=== PATIENT | male | born 1950 | race Caucasian/White ===

== ENCOUNTER 2023-08-09 15:21 | Inpatient (IN) ==
[2023-08-09] MEDS: SODIUM CHLORIDE 0.9% 1,000 ML IV ONE ×2 (15:59→18:13)
--- NOTE | 2023-08-09 16:06 | Emergency Department Note ---
Impression & Plan Generalized weakness, Elevated lactic acid level, Acute dehydration, Acute hypokalemia ED Provider Note HISTORY OF PRESENT ILLNESS: Patient is a 73-year-old male presenting with fatigue. Patient reports that for the last 4 days he has been feeling very rundown and tired. He feels lightheaded when he stands up, like he is going to pass out. reports that the patient has been breaking out into diaphoretic episodes throughout the weekend. No reported measured fevers at home. Patient denies any chest pain. He reports he has been slightly short of breath over the last 24 hours. Does not wear any supplemental oxygen at baseline. reports he has not been eating much. No reported vomiting or diarrhea. Patient denies any abdominal pain. Reports his last bowel movement was few days ago. He denies any dysuria or hematuria. reports the patient has been sleeping constantly secondary to his fatigue. No reported rashes. No recent sick contact exposures. ROS: as above PHYSICAL EXAM: Constitutional: Patient appears in no acute distress. HENT: Head: Normocephalic and atraumatic. Eyes: EOMI, PERRL Mouth/Throat: Mucous membranes moist. Neck: Trachea midline. Neck supple. Cardiovascular: RRR, No murmurs, rubs or gallops. Intact distal pulses. Pulmonary/Chest: No respiratory distress. Breath sounds clear and equal bilaterally. No wheezes or rales. Abdominal: Abdomen soft, no tenderness, rebound or guarding. Musculoskeletal: No edema, tenderness or deformity noted. Skin: Warm and dry. No rash, erythema, pallor or cyanosis Psychiatric: Appropriate mood and affect for situation. Neurological: Alert and keenly responsive. CN II-XII grossly intact, moving all extremities equally and fully. MDM: - Vitals signs stable. On arrival to the ER in triage, the patient vomited. - History obtained via patient. History as above. - Chronic conditions affecting care: HTN - Differential diagnoses include, but are not limited to: UTI; pneumonia; viral syndrome; small bowel obstruction; cholecystitis; dehydration; electrolyte abnormality - Order placed for continuous cardiac monitoring. At this time, monitor showed rate of 83 bpm with normal sinus rhythm, per my interpretation. - External medical records reviewed. - EKG interpreted by myself showed normal sinus rhythm. Rate 85 bpm. QT 364. No acute ischemic changes. Noted to have occasional PVC. Also has a right bundle branch block - Laboratory workup interpreted by myself showed normal WBC; slight hypokalemia (K 3.3); elevated lactate (2.6); normal troponin; normal lipase; normal procalcitonin - CXR negative for pneumonia, per my interpretation - CT abdomen/pelvis with IV contrast negative for acute pathology - Patient initially given 1L NS. Repeat lactate only down to 2.4. Second 1L NS ordered. - Viral respiratory panel negative - Blood cultures obtained - Discussion was had with corrections caseworker about patient's case and need for admission - Hospitalist consulted for admission - Patient admitted to [facility]ist service for further evaluation and management. ASSESSMENT AND PLAN: Diagnosis: generalized weakness; elevated lactic acid level; acute dehydration; acute hypokalemia Plan: admit Past Med/Surg History Problem List (Updated 08/09/23 @ 20:11 by Huma Montano MD) Acute hypokalemia (Acute) Acute dehydration (Acute) Elevated lactic acid level (Acute) Generalized weakness (Acute) Social History Smoking Status: Former smoker Tobacco Type: Cigarettes Feels Safe at Home: Yes Allergies Allergies Allergy/AdvReac Type Severity Reaction Status Date / Time No Known Allergies Allergy Unverified 08/09/23 19:21 Home Meds Home Medications Medication Instructions Recorded Confirmed albuterol sulfate 90 mcg/actuation 2 puff inhalation Q6H PRN Wheezing 08/09/23 08/09/23 aerosol inhaler amlodipine 5 mg tablet 5 mg PO QAM 08/09/23 08/09/23 atorvastatin 80 mg tablet 80 mg PO QAM 08/09/23 08/09/23 fluticasone fur. 100 mcg-umeclid 1 inh inhalation QA 08/09/23 08/09/23 62.5 mcg-vilant 25 mcg inhalat.powder (Trelegy Ellipta) fluticasone propionate 50 1 spray intranasal DAILY PRN 08/09/23 08/09/23 mcg/actuation nasal Allergy Symptoms spray,suspension furosemide 20 mg tablet 20 mg PO QAM 08/09/23 08/09/23 hydrochlorothiazide 12.5 mg capsule 12.5 mg PO QAM 08/09/23 08/09/23 lisinopril 40 mg tablet 40 mg PO QAM 08/09/23 08/09/23 metformin 500 mg tablet,extended 300 mg PO QAM 08/09/23 08/09/23 release 24 hr multivitamin 1 tab PO QAM 08/09/23 08/09/23 ropinirole 2 mg tablet 2 mg PO QAM 08/09/23 08/09/23 tamsulosin 0.4 mg capsule 0.4 mg PO QAM 08/09/23 08/09/23 Results & Data (ED) Vital Signs Vital Signs - 24 hr 08/09/23 15:40 08/09/23 15:53 08/09/23 17:39 Temperature 36.8 C Temperature Source Temporal Artery Scan Pulse Rate - Lying 65 Pulse Rate - Sitting 79 Pulse Rate - Standing 83 Pulse Rate 66 87 Pulse Rate [Apical] Pulse Rhythm Pulse Rhythm [Apical] Pulse Strength [Apical] Respiratory Rate 16 Respiratory Effort / Characteristics Non-Labored Spontaneous Respiratory Depth Normal Respiratory Pattern Blood Pressure - Lying 152/71 H Blood Pressure - Sitting 141/79 H Blood Pressure- Standing 139/82 Blood Pressure 129/73 Blood Pressure [Left Arm] Blood Pressure Mean 91 Blood Pressure Mean [Left Arm] Blood Pressure Position [Left Arm] Pulse Oximetry 93 Oxygen Delivery Method Room Air Oxygen Flow Rate Sepsis Recent Fever Within 48 Hours No Sepsis New/Unexplained Change in Mental Status No Sepsis Action Taken by Nursing No Action Required 08/09/23 17:44 08/09/23 17:44 Temperature Temperature Source Pulse Rate - Lying Pulse Rate - Sitting Pulse Rate - Standing Pulse Rate 64 Pulse Rate [Apical] 83 Pulse Rhythm Regular Pulse Rhythm [Apical] Regular Pulse Strength [Apical] Normal Respiratory Rate 18 18 Respiratory Effort / Characteristics Non-Labored Spontaneous Respiratory Depth Normal Respiratory Pattern Regular Blood Pressure - Lying Blood Pressure - Sitting Blood Pressure- Standing Blood Pressure Blood Pressure [Left Arm] 138/82 Blood Pressure Mean Blood Pressure Mean [Left Arm] 100 Blood Pressure Position [Left Arm] Sitting Pulse Oximetry 96 96 Oxygen Delivery Method Nasal Cannula Nasal Cannula Oxygen Flow Rate 2 2 Sepsis Recent Fever Within 48 Hours Sepsis New/Unexplained Change in Mental Status Sepsis Action Taken by Nursing Laboratory Data 08/09/23 15:52 08/09/23 15:52 Lab Results 08/09/23 08/09/23 08/09/23 Range/Units 15:52 15:59 17:39 WBC 5.66 (4.8-10.8) K/ul RBC 4.89 (4.70-6.10) M/uL Hgb 15.1 (14.0-18.0) g/dl Hct 43.8 (42.0-52.0) % MCV 89.6 (80.0-100.0) fL MCH 30.9 (25.0-34.0) pg MCHC 34.5 (32.0-36.0) g/dL RDW Std Deviation 43.7 (36.4-46.3) fL RDW Coeff of Cate 13.3 (11.5-14.5) % Plt Count 203 (130-400) K/uL MPV 9.5 (9.4-12.4) fL Immature Gran % (Auto) 0.4 % Neut % (Auto) 62.8 % Lymph % (Auto) 20.7 % [place] % (Auto) 14.5 % Eos % (Auto) 0.9 % Baso % (Auto) 0.7 % Neut # (Auto) 3.56 (1.40-6.50) K/uL Lymph # (Auto) 1.17 L (1.20-3.40) K/uL [place] # (Auto) 0.82 H (0.11-0.59) K/uL Eos # (Auto) 0.05 (0.00-0.50) K/uL Baso # (Auto) 0.04 (0.00-0.20) K/uL Immature Gran # (Auto) 0.02 (0.01-0.20) K/uL PT 10.9 (9.0-12.0) Seconds INR 1.0 (0.9-1.1) Sodium 141 (136-145) mmol/L Potassium 3.3 L (3.5-5.1) mmol/L Chloride 101 (98-107) mmol/L Carbon Dioxide 30 (21-32) mmol/L Anion Gap 10 (3-11) BUN 22 (6-23) mg/dl Creatinine 1.08 (0.6-1.4) mg/dl Est Cr Clr Drug Dosing 70.2 ml/min Est GFR ( Amer) 77.4 ml/min Est GFR (Non-Af Amer) 66.8 ml/min BUN/Creatinine Ratio 20.4 H (10-20) Glucose 127 H (70-99(Fasting)) mg/dl Lactate 2.9 H* 2.4 H* (0.4-2.0) mmol/L Calcium 10.0 (8.6-10.3) mg/dl Magnesium 1.8 (1.7-2.4) mg/dl Total Bilirubin 0.7 (0.2-1.0) mg/dl AST 36 (13-39) U/L ALT 37 (7-52) U/L Alkaline Phosphatase 71 (34-104) U/L Troponin I High Sens 8.2 (0-20) pg/ml Total Protein 7.3 (6.0-8.3) gm/dl Albumin 4.4 (3.4-5.0) gm/dl Globulin 2.9 (2.5-4.0) gm/dl Albumin/Globulin Ratio 1.5 (0.9-2) Lipase 22 (11-82) U/L Procalcitonin 0.04 (0-0.5) ng/ml Adenovirus (PCR) Not Detected (NotDetected) B. pertussis DNA (PCR) Not Detected (NotDetected) B.parapertussis DNA PCR Not Detected (NotDetected) C. pneumoniae DNA (PCR) Not Detected (NotDetected) Coronavirus OC43 (PCR) Not Detected (NotDetected) Coronavirus HKU1 (PCR) Not Detected (NotDetected) Coronavirus 229E (PCR) Not Detected (NotDetected) SARS-CoV-2 (PCR) Not Detected (NotDetected) Coronavirus NL63 (PCR) Not Detected (NotDetected) Human Metapneumovir PCR Not Detected (NotDetected) Influenza Type A (PCR) Not Detected (NotDetected) Influenza Type B (PCR) Not Detected (NotDetected) M. pneumoniae (PCR) Not Detected (NotDetected) Parainfluenza 1 (PCR) Not Detected (NotDetected) Parainfluenza 2 (PCR) Not Detected (NotDetected) Parainfluenza 3 (PCR) Not Detected (NotDetected) Parainfluenza 4 (PCR) Not Detected (NotDetected) RSV (PCR) Not Detected (NotDetected) Entero/Rhino (PCR) Not Detected (NotDetected) Administered Medications Discontinued Medications Sodium Chloride (Nss) 1,000 mls @ 999 mls/hr IV .Q1H1M ONE Stop: 08/09/23 16:46 Last Infusion: 08/09/23 19:51 Dose: Infused Documented By: Admin: 08/09/23 15:59 Dose: 999 mls/hr Documented By: COLE Sodium Chloride (Nss) 1,000 mls @ 999 mls/hr IV .Q1H1M ONE Stop: 08/09/23 19:09 Last Infusion: 08/09/23 19:51 Dose: Infused Documented By: Admin: 08/09/23 18:13 Dose: 999 mls/hr Documented By: JESSICA Ioversol (Optiray 320 100ml) 89 ml IV ONCE ONE Stop: 08/09/23 18:39 Last Admin: 08/09/23 18:38 Dose: 89 ml Documented By: DERRELL Ondansetron HCl (Ondansetron Inj 2 Mg/Ml 2 Ml Vial) 4 mg IV NOW STA Stop: 08/09/23 15:47 Last Admin: 08/09/23 16:58 Dose: Not Given Documented By: COLE Imaging Data Radiologist's Impression: Chest X-Ray 08/09/23 16:16 XR chest 1V portable HISTORY: shortness of breath COMPARISON: Chest CT 10/28/2015. FINDINGS: No pneumothorax. No pleural effusions. No focal lung consolidations to suggest a pneumonia. No evidence for pulmonary edema. The cardiac silhouette is top normal in size. No acute fractures. IMPRESSION: No acute process. ACT 112: Negative or not required by law. Electronically signed by: Teo King M.D. 08/09/2023 5:08 PM Abdomen/Pelvis CT 08/09/23 18:09 Exam(s): CT ABDOMEN + PELVIS With Contrast IV Amt: 89ml optiray 320. EXAM: CT Abdomen and Pelvis With Intravenous Contrast CLINICAL HISTORY: Reason for exam: vomiting; elevated lactate. TECHNIQUE: Axial computed tomography images of the abdomen and pelvis with intravenous contrast. CTDI is 25.6 mGy and DLP is 1176.83 mGy-cm. Automated exposure control was utilized for the study. A dose lowering technique was utilized adhering to the principles of ALARA. CONTRAST: Patient received 89ml optiray 320. of IV contrast COMPARISON: No relevant prior studies available. FINDINGS: Lung bases: Bibasilar subsegmental atelectasis. Pleural space: Trace volume of pleural fluid bilaterally. Heart: Small pericardial effusion. ABDOMEN: Liver: Benign hepatic cysts. Gallbladder and bile ducts: Cholelithiasis without cholecystitis or biliary dilatation. Pancreas: Unremarkable. No mass. No ductal dilation. Spleen: Splenic cyst measuring 22 mm. Adrenals: Unremarkable. No mass. Kidneys and ureters: Symmetric renal enhancement. No hydronephrosis. Stomach and bowel: No bowel obstruction. Diverticulosis without diverticulitis. PELVIS: Appendix: Appendix not identified. Bladder: Unremarkable. No mass. Reproductive: Prostatomegaly. ABDOMEN and PELVIS: Intraperitoneal space: Unremarkable. No free fluid or free air. Bones/joints: No acute fracture or dislocation. Soft tissues: Small fat-containing periumbilical hernia. Vasculature: Atherosclerosis without aortic aneurysm. Lymph nodes: Unremarkable. No enlarged lymph nodes. IMPRESSION: No acute findings in the abdomen or pelvis. Electronically signed by: Karis Nino M.D. 08/09/23 19:15 PM Discharge Plan Visit Data Chief Complaint: Dehydration Stated Complaint: DEHYDRATED, VOMIT ED Provider: Huma Montano Discharge Problem: Generalized weakness, Elevated lactic acid level, Acute dehydration, Acute hypokalemia Forms Stand Alone Forms: My [facility] [employer] Prescriptions Prescriptions: No Action multivitamin Tablet 1 tab PO QAM atorvastatin 80 mg tablet 80 mg PO QAM amlodipine 5 mg tablet 5 mg PO QAM tamsulosin 0.4 mg capsule 0.4 mg PO QAM ropinirole 2 mg tablet 2 mg PO QAM hydrochlorothiazide 12.5 mg capsule 12.5 mg PO QAM furosemide 20 mg tablet 20 mg PO QAM albuterol sulfate 90 mcg/actuation HFA aerosol inhaler 2 puff INHALATION Q6H PRN (Reason: Wheezing) lisinopril 40 mg tablet 40 mg PO QAM fluticasone propionate [Flonase] 50 mcg/actuation [place],Suspension 1 spray INTRANASAL DAILY PRN (Reason: Allergy Symptoms) Rx Instructions: administer into each nostril metformin 500 mg tablet extended release 24 hr 300 mg PO QAM Trelegy Ellipta 100-62.5-25 mcg blister with device 1 inh INHALATION QAM Referrals Referrals: Roberto Duncan MD [Primary Care Provider] -
[2023-08-09 16:17] LABS: Basophils # (auto) 0.04 K/uL (0.00-0.20); Basophils % (auto) 0.7 %; Eosinophils # (auto) 0.05 K/uL (0.00-0.50); Eosinophils % (auto) 0.9 %; Hematocrit (blood only) 43.8 % (42.0-52.0); Hemoglobin 15.1 g/dl (14.0-18.0); Immature Granulocytes # (auto) 0.02 K/uL (0.01-0.20); Immature Granulocytes % (auto) 0.4 %; Lymphocytes # (auto) 1.17 K/uL (1.20-3.40); Lymphocytes % (auto) 20.7 %; Mean Corpuscular Hemoglobin 30.9 pg (25.0-34.0); Mean Corpuscular Hgb Conc 34.5 g/dL (32.0-36.0); Mean Corpuscular Volume 89.6 fL (80.0-100.0); Mean Platelet Volume 9.5 fL (9.4-12.4); Monocytes # (auto) 0.82 K/uL (0.11-0.59); Monocytes % (auto) 14.5 %; Neutrophils # (auto) 3.56 K/uL (1.40-6.50); Neutrophils % (auto) 62.8 %; Platelet Count 203 K/uL (130-400); RDW Coefficient of Variation 13.3 % (11.5-14.5); RDW Standard Deviation 43.7 fL (36.4-46.3); Red Blood Count 4.89 M/uL (4.70-6.10); White Blood Count 5.66 K/ul (4.8-10.8)
[2023-08-09 16:29] LABS: Albumin Globulin Ratio 1.5 (0.9-2); Albumin Level 4.4 gm/dl (3.4-5.0); BUN Creatinine Ratio 20.4 (10-20); Bilirubin,Total 0.7 mg/dl (0.2-1.0); Creatinine Clr Calc Pharmacy 70.2 ml/min; Est GFR (African American) 77.4 ml/min; Est GFR (Non-African American) 66.8 ml/min; Globulin 2.9 gm/dl (2.5-4.0); Magnesium 1.8 mg/dl (1.7-2.4); Potassium 3.3 mmol/L (3.5-5.1); Total Protein 7.3 gm/dl (6.0-8.3)
[2023-08-09 16:35] LABS: Troponin I High Sensitivity 8.2 pg/ml (0-20)
[2023-08-09 16:52] LABS: Prothrombin Time 10.9 Seconds (9.0-12.0)
[2023-08-09] MEDS: ONDANSETRON INJ 2 MG/ML 2 ML VIAL IV STA (16:58)
[2023-08-09 16:59] LABS: Adenovirus PCR Not Detected (NotDetected); Bordetella parapertussis PCR Not Detected (NotDetected); Bordetella pertussis PCR Not Detected (NotDetected); Chlamydia pneumoniae PCR Not Detected (NotDetected); Coronavirus 229E PCR Not Detected (NotDetected); Coronavirus CoV-2 (COVID19)PCR Not Detected (NotDetected); Coronavirus HKU1 PCR Not Detected (NotDetected); Coronavirus NL63 PCR Not Detected (NotDetected); Coronavirus OC43PCR Not Detected (NotDetected); Human Metapneumovirus PCR Not Detected (NotDetected); Influenza A PCR Not Detected (NotDetected); Influenza B PCR Not Detected (NotDetected); Mycoplasma pneumoniae PCR Not Detected (NotDetected); Parainfluenza Virus 1 PCR Not Detected (NotDetected); Parainfluenza Virus 2 PCR Not Detected (NotDetected); Parainfluenza Virus 3 PCR Not Detected (NotDetected); Parainfluenza Virus 4 PCR Not Detected (NotDetected); Respiratory Syncytial VirusPCR Not Detected (NotDetected); Rhinovirus/Enterovirus PCR Not Detected (NotDetected)
--- NOTE | 2023-08-09 17:06 | Electrocardiogram Report ---
Test Reason : Blood Pressure : / mmHG Vent. Rate : 085 BPM Atrial Rate : 085 BPM P-R Int : 264 ms QRS Dur : 114 ms QT Int : 364 ms P-R-T Axes : 047 -67 039 degrees QTc Int : 433 ms Sinus rhythm with 1st degree A-V block with occasional Premature ventricular complexes Left anterior fascicular block Right bundle branch block Possible Old Anteroseptal infarct Abnormal ECG No previous ECGs available Confirmed by De Nance ([id number]) on 08/09/2023 5:06:05 PM Referred By: Confirmed By:De Nance
--- NOTE | 2023-08-09 17:10 | XRay Report ---
XR chest 1V portable HISTORY: shortness of breath COMPARISON: Chest CT 10/28/2015. FINDINGS: No pneumothorax. No pleural effusions. No focal lung consolidations to suggest a pneumonia. No evidence for pulmonary edema. The cardiac silhouette is top normal in size. No acute fractures. IMPRESSION: No acute process. ACT 112: Negative or not required by law. Electronically signed by: Teo King M.D. 08/09/2023 5:08 PM
[2023-08-09] MEDS: OPTIRAY 320 100ml IV ONE (18:38)
--- NOTE | 2023-08-09 19:16 | CT Scan Report ---
Exam(s): CT ABDOMEN + PELVIS With Contrast IV Amt: 89ml optiray 320. EXAM: CT Abdomen and Pelvis With Intravenous Contrast CLINICAL HISTORY: Reason for exam: vomiting; elevated lactate. TECHNIQUE: Axial computed tomography images of the abdomen and pelvis with intravenous contrast. CTDI is 25.6 mGy and DLP is 1176.83 mGy-cm. Automated exposure control was utilized for the study. A dose lowering technique was utilized adhering to the principles of ALARA. CONTRAST: Patient received 89ml optiray 320. of IV contrast COMPARISON: No relevant prior studies available. FINDINGS: Lung bases: Bibasilar subsegmental atelectasis. Pleural space: Trace volume of pleural fluid bilaterally. Heart: Small pericardial effusion. ABDOMEN: Liver: Benign hepatic cysts. Gallbladder and bile ducts: Cholelithiasis without cholecystitis or biliary dilatation. Pancreas: Unremarkable. No mass. No ductal dilation. Spleen: Splenic cyst measuring 22 mm. Adrenals: Unremarkable. No mass. Kidneys and ureters: Symmetric renal enhancement. No hydronephrosis. Stomach and bowel: No bowel obstruction. Diverticulosis without diverticulitis. PELVIS: Appendix: Appendix not identified. Bladder: Unremarkable. No mass. Reproductive: Prostatomegaly. ABDOMEN and PELVIS: Intraperitoneal space: Unremarkable. No free fluid or free air. Bones/joints: No acute fracture or dislocation. Soft tissues: Small fat-containing periumbilical hernia. Vasculature: Atherosclerosis without aortic aneurysm. Lymph nodes: Unremarkable. No enlarged lymph nodes. IMPRESSION: No acute findings in the abdomen or pelvis. Electronically signed by: Karis Nino M.D. 08/09/23 19:15 PM
[2023-08-09] MEDS: LACTATED RINGER'S 1,000 ML IV ONE (20:54)
[2023-08-09 21:14] LABS: Appearance Urine Clear (Clear); Bilirubin Urine Negative (Negative); Blood Urine Negative (Negative); Color Urine Yellow; Glucose Urine UA Negative (Negative); Ketones Urine Negative (Negative); Leukocyte Esterase Urine Negative (Negative); Nitrite Urine Negative (Negative); Protein Urine Negative (Negative); Specific Gravity Urine > 1.045 (1.000-1.030); Urobilinogen Urine Negative (Negative); pH Urine 5.5 (4.5-7.5)
--- NOTE | 2023-08-09 21:37 | History & Physical Report ---
Date of Service August 09, 2023 Assessment & Plan (1) Hypokalemia: Plan: Hypokalemia, hypomagnesemia, near syncope Secondary to viral illness chronic respiratory failure secondary to COPD on home O2, baseline pulmonary status hx CAD as per records trivial MR, mild TR, loculated pericardial effusion from TTE April 2023, history of bifascicular heart block (RBBB, LAFB as per records) history ANNEL on CPAP hypertension, slightly elevated secondary illness hyperlipidemia statin Rx DM2 on oral medications, well-controlled as of recent hemoglobin A1c of 6.29 Jul 2023 hx BPH, stable on regimen past tobacco abuse OBS Medical telemetry Replace electrolytes IVF, hold home diuretic until patient euvolemic Supportive management for presumptive viral illness Basal bolus insulin, ISS BG goal 1 10-1 40, carb count coverage DVT prophylaxis. Lovenox subcu Full code Text document was generated using [employer] voice recognition software. It may contain grammatical or spelling errors. Kindly contact undersigned for clarification of any documentation item in question. History of Present Illness Chief Complaint: Feeling rundown and tired, near syncope Primary Care Provider: Roberto Duncan MD History obtained from patient and records. Medical history significant for chronic respiratory failure secondary to COPD on home O2, CAD as per records, trivial MR, mild TR, loculated pericardial effusion from TTE April 2023, history of bifascicular heart block (RBBB, LAFB as per records), history ANNEL on CPAP, hypertension, hyperlipidemia, DM2 on oral medications, BPH, anxiety/mood disorder, past tobacco abuse. Few days history of feeling very rundown and tired. Lightheaded when getting up, near syncope. No headache, no chest pain, no usual SOB. Denies fluid retention. Nausea emesis symptoms at home without abdominal pain. 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 100 mcg-umeclid 1 inh inhalation QA 08/09/23 08/09/23 History 62.5 mcg-vilant 25 mcg inhalat.powder (Trelegy Ellipta) fluticasone propionate 50 1 spray intranasal DAILY PRN 08/09/23 08/09/23 History mcg/actuation nasal Allergy Symptoms spray,suspension furosemide 20 mg tablet 20 mg PO QAM 08/09/23 08/09/23 History hydrochlorothiazide 12.5 mg capsule 12.5 mg PO QAM 08/09/23 08/09/23 History lisinopril 40 mg tablet 40 mg PO [facility] 08/09/23 08/09/23 History metformin 500 mg tablet,extended 300 mg PO [facility] 08/09/23 08/09/23 History release 24 hr multivitamin 1 tab PO QA 08/09/23 08/09/23 History ropinirole 2 mg tablet 2 mg PO QAM 08/09/23 08/09/23 History tamsulosin 0.4 mg capsule 0.4 mg PO M 08/09/23 08/09/23 History Past Med/Surg History Problem List (Updated 08/10/23 @ 10:45 by ALOK Post) Second degree AV block Hypokalemia Acute hypokalemia (Acute) Acute dehydration (Acute) Elevated lactic acid level (Acute) Generalized weakness (Acute) Social History Smoking Status: Never smoker Tobacco Type: Cigarettes Hx Alcohol Use: No Hx Substance Use: No Preferred Language: Belarusian Communication Ability: Effective Air Pollution Inspector Required: No Beliefs That Will Affect Care: None Current Living Situation: Significant Other Other Information That Helps Us Care for You: No Feels Safe at Home: Yes Safety Concerns: Feels Safe At This Time Assistive Devices: CPAP and Oxygen - at Night Review of Systems Review of Systems: As per HPI, all other systems reviewed and negative Physical Exam Physical Exam: GENERAL: Comfortable, obese, pleasant, short neck, no respiratory distress SKIN: Normal color, warm HEENT: [place] palpebral conjunctivae, no ptosis, dry buccal mucosa NECK : Supple, no tenderness CHEST : CTA, no tenderness HEART : RRR, no obvious murmurs ABDOMEN: Some distention, nontender EXTREMITIES : Minimal LE swelling, no LE tenderness, no other conspicuous deformities noted NEUROLOGIC : Coherent, no facial asymmetry, no other gross focality Results & Data Results & Data Vital Signs (Past 12 Hours) Vital Signs Temp Pulse Pulse Resp BP BP Pulse Ox 08/09/23 21:00 72 18 175/87 H 95 08/09/23 20:00 70 16 164/88 H 95 08/09/23 19:36 67 08/09/23 17:44 83 18 138/82 96 08/09/23 17:44 64 18 96 08/09/23 15:53 87 08/09/23 15:40 36.8 C 66 16 129/73 93 O2 Del Method O2 Flow Rate 08/09/23 21:00 Nasal Cannula 2 08/09/23 20:00 Nasal Cannula 2 08/09/23 19:36 08/09/23 17:44 Nasal Cannula 2 08/09/23 17:44 Nasal Cannula 2 08/09/23 15:53 08/09/23 15:40 Room Air Laboratory Results Laboratory Results WBC 5.66 K/ul (4.8-10.8) 08/09/23 15:52 RBC 4.89 M/uL (4.70-6.10) 08/09/23 15:52 Hgb 15.1 g/dl (14.0-18.0) 08/09/23 15:52 Hct 43.8 % (42.0-52.0) 08/09/23 15:52 MCV 89.6 fL (80.0-100.0) 08/09/23 15:52 MCH 30.9 pg (25.0-34.0) 08/09/23 15:52 MCHC 34.5 g/dL (32.0-36.0) 08/09/23 15:52 RDW Std Deviation 43.7 fL (36.4-46.3) 08/09/23 15:52 RDW Coeff of Cate 13.3 % (11.5-14.5) 08/09/23 15:52 Plt Count 203 K/uL (130-400) 08/09/23 15:52 MPV 9.5 fL (9.4-12.4) 08/09/23 15:52 Immature Gran % (Auto) 0.4 % 08/09/23 15:52 Neut % (Auto) 62.8 % 08/09/23 15:52 Lymph % (Auto) 20.7 % 08/09/23 15:52 [place] % (Auto) 14.5 % 08/09/23 15:52 Eos % (Auto) 0.9 % 08/09/23 15:52 Baso % (Auto) 0.7 % 08/09/23 15:52 Neut # (Auto) 3.56 K/uL (1.40-6.50) 08/09/23 15:52 Lymph # (Auto) 1.17 K/uL (1.20-3.40) L 08/09/23 15:52 P[place] # (Auto) 0.82 K/uL (0.11-0.59) H 08/09/23 15:52 Eos # (Auto) 0.05 K/uL (0.00-0.50) 08/09/23 15:52 Baso # (Auto) 0.04 K/uL (0.00-0.20) 08/09/23 15:52 Immature Gran # (Auto) 0.02 K/uL (0.01-0.20) 08/09/23 15:52 PT 10.9 Seconds (9.0-12.0) 08/09/23 15:52 INR 1.0 (0.9-1.1) 08/09/23 15:52 Sodium 141 mmol/L (136-145) 08/09/23 15:52 Potassium 3.3 mmol/L (3.5-5.1) L 08/09/23 15:52 Chloride 101 mmol/L (98-107) 08/09/23 15:52 Carbon Dioxide 30 mmol/L (21-32) 08/09/23 15:52 Anion Gap 10 (3-11) 08/09/23 15:52 BUN 22 mg/dl (6-23) 08/09/23 15:52 Creatinine 1.08 mg/dl (0.6-1.4) 08/09/23 15:52 Est Cr Clr Drug Dosing 70.2 ml/min 08/09/23 15:52 Est GFR ( Amer) 77.4 ml/min 08/09/23 15:52 Est GFR (Non-Af Amer) 66.8 ml/min 08/09/23 15:52 BUN/Creatinine Ratio 20.4 (10-20) H 08/09/23 15:52 Glucose 127 mg/dl (70-99(Fasting)) H 08/09/23 15:52 Lactate 1.8 mmol/L (0.4-2.0) 08/09/23 19:53 Calcium 10.0 mg/dl (8.6-10.3) 08/09/23 15:52 Magnesium 1.8 mg/dl (1.7-2.4) 08/09/23 15:52 Total Bilirubin 0.7 mg/dl (0.2-1.0) 08/09/23 15:52 AST 36 U/L (13-39) 08/09/23 15:52 ALT 37 U/L (7-52) 08/09/23 15:52 Alkaline Phosphatase 71 U/L (34-104) 08/09/23 15:52 Troponin I High Sens 8.2 pg/ml (0-20) 08/09/23 15:52 Total Protein 7.3 gm/dl (6.0-8.3) 08/09/23 15:52 Albumin 4.4 gm/dl (3.4-5.0) 08/09/23 15:52 Globulin 2.9 gm/dl (2.5-4.0) 08/09/23 15:52 Albumin/Globulin Ratio 1.5 (0.9-2) 08/09/23 15:52 Lipase 22 U/L (11-82) 08/09/23 15:52 Procalcitonin 0.04 ng/ml (0-0.5) 08/09/23 15:52 Urine Color Yellow 08/09/23 21:00 Urine Appearance Clear (Clear) 08/09/23 21:00 Urine pH 5.5 (4.5-7.5) 08/09/23 21:00 Ur Specific Bentley > 1.045 (1.000-1.030) H 08/09/23 21:00 Urine Protein Negative (Negative) 08/09/23 21:00 Urine Glucose (UA) Negative (Negative) 08/09/23 21:00 Urine Ketones Negative (Negative) 08/09/23 21:00 Urine Blood Negative (Negative) 08/09/23 21:00 Urine Nitrite Negative (Negative) 08/09/23 21:00 Urine Bilirubin Negative (Negative) 08/09/23 21:00 Urine Urobilinogen Negative (Negative) 08/09/23 21:00 Ur Leukocyte Esterase Negative (Negative) 08/09/23 21:00 Adenovirus (PCR) Not Detected (NotDetected) 08/09/23 15:59 B. pertussis DNA (PCR) Not Detected (NotDetected) 08/09/23 15:59 B.parapertussis DNA PCR Not Detected (NotDetected) 08/09/23 15:59 C. pneumoniae DNA (PCR) Not Detected (NotDetected) 08/09/23 15:59 Coronavirus OC43 (PCR) Not Detected (NotDetected) 08/09/23 15:59 Coronavirus HKU1 (PCR) Not Detected (NotDetected) 08/09/23 15:59 Coronavirus 229E (PCR) Not Detected (NotDetected) 08/09/23 15:59 SARS-CoV-2 (PCR) Not Detected (NotDetected) 08/09/23 15:59 Coronavirus NL63 (PCR) Not Detected (NotDetected) 08/09/23 15:59 Human Metapneumovir PCR Not Detected (NotDetected) 08/09/23 15:59 Influenza Type A (PCR) Not Detected (NotDetected) 08/09/23 15:59 Influenza Type B (PCR) Not Detected (NotDetected) 08/09/23 15:59 M. pneumoniae (PCR) Not Detected (NotDetected) 08/09/23 15:59 Parainfluenza 1 (PCR) Not Detected (NotDetected) 08/09/23 15:59 Parainfluenza 2 (PCR) Not Detected (NotDetected) 08/09/23 15:59 Parainfluenza 3 (PCR) Not Detected (NotDetected) 08/09/23 15:59 Parainfluenza 4 (PCR) Not Detected (NotDetected) 08/09/23 15:59 RSV (PCR) Not Detected (NotDetected) 08/09/23 15:59 Entero/Rhino (PCR) Not Detected (NotDetected) 08/09/23 15:59 Impressions Chest X-Ray 08/09/23 16:16 XR chest 1V portable HISTORY: shortness of breath COMPARISON: Chest CT 10/28/2015. FINDINGS: No pneumothorax. No pleural effusions. No focal lung consolidations to suggest a pneumonia. No evidence for pulmonary edema. The cardiac silhouette is top normal in size. No acute fractures. IMPRESSION: No acute process. ACT 112: Negative or not required by law. Electronically signed by: Teo King M.D. 08/09/2023 5:08 PM Abdomen/Pelvis CT 08/09/23 18:09 Exam(s): CT ABDOMEN + PELVIS With Contrast IV Amt: 89ml optiray 320. EXAM: CT Abdomen and Pelvis With Intravenous Contrast CLINICAL HISTORY: Reason for exam: vomiting; elevated lactate. TECHNIQUE: Axial computed tomography images of the abdomen and pelvis with intravenous contrast. CTDI is 25.6 mGy and DLP is 1176.83 mGy-cm. Automated exposure control was utilized for the study. A dose lowering technique was utilized adhering to the principles of ALARA. CONTRAST: Patient received 89ml optiray 320. of IV contrast COMPARISON: No relevant prior studies available. FINDINGS: Lung bases: Bibasilar subsegmental atelectasis. Pleural space: Trace volume of pleural fluid bilaterally. Heart: Small pericardial effusion. ABDOMEN: Liver: Benign hepatic cysts. Gallbladder and bile ducts: Cholelithiasis without cholecystitis or biliary dilatation. Pancreas: Unremarkable. No mass. No ductal dilation. Spleen: Splenic cyst measuring 22 mm. Adrenals: Unremarkable. No mass. Kidneys and ureters: Symmetric renal enhancement. No hydronephrosis. Stomach and bowel: No bowel obstruction. Diverticulosis without diverticulitis. PELVIS: Appendix: Appendix not identified. Bladder: Unremarkable. No mass. Reproductive: Prostatomegaly. ABDOMEN and PELVIS: Intraperitoneal space: Unremarkable. No free fluid or free air. Bones/joints: No acute fracture or dislocation. Soft tissues: Small fat-containing periumbilical hernia. Vasculature: Atherosclerosis without aortic aneurysm. Lymph nodes: Unremarkable. No enlarged lymph nodes. IMPRESSION: No acute findings in the abdomen or pelvis. Electronically signed by: Karis Nino M.D. 08/09/23 19:15 PM Diagnostic Findings Chest x-ray as per my interpretation borderline cardiomegaly EKG as per my interpretation : Rate 85, NSR, LAD, LAFB, RBBB, anteroseptal infarct, no ischemia, PVCs
[2023-08-09] MEDS ORDERED: PROMETHAZINE HCL 6.25 MG in SODIUM CHLORIDE 0.9% 50 ML IV PRN (21:40)
[2023-08-09] MEDS: amLODIPine BESYLATE 5 MG TAB PO ONE (22:16)
[2023-08-09] MEDS: MELATONIN 3 MG TAB PO PRN (22:16)
[2023-08-09] MEDS: cloNIDine HCL 0.1 MG TAB PO ONE (22:23)
[2023-08-09 22:45] LABS: Thyroid Stimulating Hormone 1.869 uIu/ml (0.300-4.500)
[2023-08-09] MEDS ORDERED: GLUCOSE 10 TAB/TUBE PO PRN (22:53)
[2023-08-09] MEDS ORDERED: GLUCOSE 40% GEL 15 GM TUBE PO PRN (22:53)
[2023-08-09] MEDS ORDERED: CARBOHYDRATES FOR HYPOGLYCEMIA PO PRN (22:53)
[2023-08-09] MEDS ORDERED: FLUTICASONE PROPIONATE NA SPR 16 GM BTL NAE PRN (22:53)
[2023-08-09] MEDS ORDERED: GLUCAGON FOR INJ 1 MG VIAL SQ PRN (22:53)
[2023-08-09] MEDS ORDERED: DEXTROSE 50% 50 ML SYRINGE IV PRN (22:53)
[2023-08-09] MEDS: SODIUM CHLORIDE 0.65% NA SOLN 45 ML (OCEAN) PRN (23:16)
[2023-08-09] MEDS: INSULIN ASPART PER UNIT CHARGE SC SCH (23:24)
[2023-08-10 01:56] LABS: Appearance Urine Clear (Clear); Bilirubin Urine Negative (Negative); Blood Urine Negative (Negative); Color Urine Yellow; Glucose Urine UA Negative (Negative); Ketones Urine Trace (Negative); Leukocyte Esterase Urine Negative (Negative); Nitrite Urine Negative (Negative); Protein Urine Negative (Negative); Specific Gravity Urine > 1.045 (1.000-1.030); Urobilinogen Urine Negative (Negative)
--- NOTE | 2023-08-10 02:23 | Communication Note ---
Date of Service: August 10, 2023 Notified by RN of heart rate 30s upon arrival at the floor. Patient asymptomatic as per RN. EKG as per my interpretation: Rate 30, second-degree AV block Mobitz type II, LAD, LAFB, RBBB, LVH, nonspecific T wave abnormalities AP Near syncope possibly from symptomatic bradycardia 2AVB, Mobitz type II Change to full admission PCU transfer Atropine as needed symptomatic bradycardia Pacer pads on Cardiology consult Re: 2AVB Mobitz type II N.p.o. until patient seen by cardiology in anticipation of PPM
[2023-08-10] MEDS ORDERED: ATROPINE SULFATE 0.1 MG/ML 10ML SYR IV PRN (02:30)
[2023-08-10] MEDS: POTASSIUM CHLORIDE 20 MEQ in LACTATED RINGER'S 1,000 ML IV ONE (02:51)
[2023-08-10] MEDS: MAGNESIUM SULFATE / D5W 1 GM/100 ML BAG IV ONE (02:54)
[2023-08-10] MEDS: POTASSIUM CHLORIDE PWD 20 MEQ PACK PO STA (02:55)
[2023-08-10] MEDS: POTASSIUM CHLORIDE PWD 20 MEQ PACK PO ONE (03:51)
[2023-08-10 05:22] LABS: Basophils # (auto) 0.04 K/uL (0.00-0.20); Basophils % (auto) 0.8 %; Eosinophils # (auto) 0.07 K/uL (0.00-0.50); Eosinophils % (auto) 1.5 %; Hematocrit (blood only) 36.6 % (42.0-52.0); Hemoglobin 12.6 g/dl (14.0-18.0); Immature Granulocytes # (auto) 0.02 K/uL (0.01-0.20); Immature Granulocytes % (auto) 0.4 %; Lymphocytes # (auto) 1.05 K/uL (1.20-3.40); Lymphocytes % (auto) 21.9 %; Mean Corpuscular Hgb Conc 34.4 g/dL (32.0-36.0); Mean Corpuscular Volume 89.9 fL (80.0-100.0); Mean Platelet Volume 9.9 fL (9.4-12.4); Monocytes # (auto) 0.62 K/uL (0.11-0.59); Monocytes % (auto) 12.9 %; Neutrophils % (auto) 62.5 %; Platelet Count 180 K/uL (130-400); RDW Coefficient of Variation 13.2 % (11.5-14.5); RDW Standard Deviation 44.2 fL (36.4-46.3); Red Blood Count 4.07 M/uL (4.70-6.10)
[2023-08-10 05:36] LABS: Calcium 8.9 mg/dl (8.6-10.3); Creatinine Clr Calc Pharmacy 84.1 ml/min; Est GFR (African American) 95.2 ml/min; Est GFR (Non-African American) 82.2 ml/min; Potassium 4.3 mmol/L (3.5-5.1)
--- OUTSIDE RECORDS SUMMARY | 2023-08-10 06:17 | External Medical Summary | Summary of Care ---
Author Name Unknown Organization [facility] Address [address] [place] [address] Phone [phone] Care Team Providers Care Directory Compiler Name Role Phone Dakota PRASAD MD, Roberto Harkins Primary Care Provider Reason for Visit * Reason Comments Outpatient Testing Encounter Details Date Type Department Care Team (Late st Contact Info) Description 07/27/2023 10:30 AM EDT Laboratory Laboratory [facility] [address] [facility] [place] [phone] [facility] [address] [facility] [place] [address] Type 2 diabetes mellitus with hemoglobin A1c goal of less than 8.0% ([facility]) Allergies No known active allergiesdocumented as of this encounter (statuses as of 07/27/2023) Medications Medication Sig Dispensed Refills Start Date End Date Status Meclizine HCl 25 MG Oral Tablet (Antivert) TAKE 1 TABLET BY MOUTH 3 TIMES DAILY NEEDED FOR DIZZINESS. 30 Tablet 0 03/10/2021 Active Fluticasone Propionate 50 MCG/ACT Nasal Suspension (Flonase)Indicatio ns:Chronic frontal sinusitis Administer 2 Sprays into each nostril daily. 16 g 5 03/27/2021 Active Additional Information Patient taking differently:2 [place] Each Nostril Daily(AM),As needed, Reported on 06/17/2022 rOPINIRole HCl 2 MG Oral Tablet (Requip) TAKE ONE TABLET BY MOUTH EVERY DAY BEFORE BEDTIME 100 Tablet 1 10/21/2022 08/01/202 4 Active Naproxen 500 MG Oral Tablet (Naprosyn) TAKE ONE TABLET BY MOUTH TWICE A DAY WITH MORNING AND EVENING MEALS 200 Tablet 1 10/21/2022 4 Active Additional Information Patient taking differently: Takes once per day, Reported on 04/20/2023 Tamsulosin HCl 0.4 MG Oral Capsule (Flomax) TAKE ONE CAPSULE BY MOUTH EVERY MORNING 100 Capsule 1 10/21/2022 4 Active metFORMIN HCl ER 500 MG Oral Tablet Extended Release 24 Hour (Glucophage XR)Indications:DM type 2 nursing care encounter (HCC) TAKE THREE TABLETS BY MOUTH EVERY DAY IN THE MORNING 300 Tablet 1 10/21/2022 4 Active Additional Information Patient taking differently: 1,000 mg Oral Daily(AM), Reported on 2023 Lisinopril 40 MG Oral Tablet TAKE ONE TABLET BY MOUTH EVERY MORNING 100 Tablet 1 10/21/2022 4 Active Atorvastatin Calcium 80 MG Oral Tablet (Lipitor) TAKE ONE TABLET BY MOUTH EVERY DAY 90 Tablet 1 01/10/2023 4 Active hydrOXYzine HCl 10 MG Oral Tablet (Atarax) TAKE ONE TABLET BY MOUTH EVERY 6 HOURS NEEDED FOR ANXIETY 360 Tablet 1 02/02/2023 Active amLODIPine Besylate 5 MG Oral Tablet (Norvasc)Indicatio ns:Essential hypertension with goal blood pressure less than 140/90 Take 1 Tablet by mouth in the morning. 100 Tablet 3 04/20/2023 Active Trelegy Ellipta 100-62.5-25 MCG/ACT Aerosol Powder Breath Activated (Fluticasone-Umecl idinium-Vilanterol ) Inhale by mouth 1 Puff in the morning. Rinse after. 180 Blister Dosing Unit 2 04/29/2023 Active Albuterol Sulfate HFA 108 (90 Base) MCG/ACT Inhalation Aerosol Solution INHALE TWO PUFFS BY MOUTH FOUR TIMES A DAY NEEDED FOR WHEEZING 54 g 2 04/29/2023 Active hydroCHLOROthiazid e 12.5 MG Oral Capsule (Hydrodiuril)Indic ations:Essential hypertension with goal blood pressure less than 140/90 Take 1 Capsule by mouth in the morning. 90 Capsule 3 05/07/2023 Active Fluticasone Propionate 50 MCG/ACT Nasal Suspension (Flonase) Administer 1 [place] into nostril at bedtime. 16 g 3 05/11/2023 Active Furosemide 20 MG Oral Tablet (Lasix)Indications :Generalized edema TAKE ONE TABLET BY MOUTH EVERY DAY IN THE MORNING 100 Tablet 1 07/21/2023 Active documented as of this encounter (statuses as of 07/27/2023) Active Problems Problem Noted Date Diagnosed Date COPD, group B, by GOLD 2017 classification 05/30 Overview: Per COPD GOLD Classification Atherosclerosis of aorta 07/23/2022 Atherosclerosis of coronary artery of [place] heart without angina pectoris 07/23/2022 Anxiety and depression 04/21/2022 Adjustment disorder with mixed anxiety and depre ssed mood 04/21/2022 Anxiety state 04/05/2019 Type 2 diabetes mellitus wit h hemoglobin A1c goal of less than 8.0% 10/13/2018 Obstructive sleep apnea of adult 02/17/2017 Hypertension associated with diabetes 02/17/2017 Essential hypertension with goal blood pressure less than 140/90 01/29/2016 History of nonmelanoma skin cancer 12/07/2013 History of squamous cell carcinoma 10/12/2012 History of basal cell carcinoma 10/12/2012 History of squamous cell carcinoma of skin 10/11 Overview: Right clavicular area - 2011 Right wrist - 2009 Dyslipidemia, goal LDL below 100 02/28/2009 Overview: Per Lipid Taxonomy. ADVANCE DIRECTIVE INFORMATION 01/13/2006 Overview: No, Advance Directive brochure offered , patient declined. documented as of this encounter (statuses as of 07/27/2023) Resolved Problems Problem Noted Date Diagnosed Date Resolved Date COPD, group A, by GOLD 2017 classification 10/02/2019 06/03/2023 Overview: Per COPD GOLD Classification Basal cell carcinoma (BCC) o f skin of left ear 03/21/2019 01/20/2022 Herpes zoster without complication 09/17/2016 02/17/2017 Type 2 diabetes mellitus wit h hemoglobin A1c goal of less than 7.0% 10/12/2012 10/13/2018 Overview: ICD-10 update of inactive term Epidermal inclusion cyst 10/12/2012 Inflamed seborrheic keratosis 10/12/2012 04/15/2018 Other seborrheic keratosis 10/12/2012 0 04/15/2018 COPD, mild 09/10/2011 10/05/2019 Overview: Per COPD GOLD Classification HTN, goal below 140/90 02/06/200901/26 Overview: Modified per HTN protocol #16. HYPERTENSION NOS 01/13/2006 02/07/2009 Overview: Modified per HTN protocol #16. PURE HYPERCHOLESTEROLEM 01/13/200602/19 Overview: Per Lipid Taxonomy. 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 02/17/2017 Overview: ICD-10 update of inactive term OPEN WOUND LIP-COMPLICAT 12/07/2005 documented as of this encounter (statuses as of 07/27/2023) Immunizations Name Administration Dates Next Due COVID-19 mRNA, LNP-s, No Pre serve, 2-Dose Series (VeriTran) 01/29/2021,06/12/2020,05/15/2020 Pneumococcal Conjugate Vacc, 13 Valent (Prevnar) 03/29/2014 Pneumococcal Polysaccharide PPV23 (Pneumovax) 10/05/2016,04/22/2009 Season Influenza, Quad, PF, Adjuvanted, 65+ Yrs, IM (FLUAD) 01/24/2020 Seasonal Influenza, PF, 6 M & above, IM , (FluLaval or Fluzone) 04/15/2018,02/17/2017 Seasonal Influenza, Quadriva lent Hd (Fluzone Hd) 01/29/2023,12/01/2021,12/27/2020 Seasonal Influenza, Split, I IV3, With Preserve, Inj 03/29/2014,01/26/2013,01/06/2012,01/09,12/23/2009,01/29/2009,01/25/2006 Seasonal Influenza, Trivalen t, Adjuvanted, 65+ yrs 04/05/2019 TDAP (age 10 and older)(Boostrix) 01/20/2022 TDAP (age 11 and older)(Adacel) 07/30/2008 Zoster Vaccine Recombinant (Shingrix) 01/09/2022 ,10/22/2021 documented as of this encounter Social History Tobacco Use Types Packs/Day Years Used Date Smoking Tobacco: Former Cigarettes 1 52.1 1 965 - 05/06/2016 Smokeless Tobacco: Never Alcohol Use Standard Drinks/Week Comments Yes 0 (1 standard drink = 0.6 oz pur e alcohol) 1/daily PHQ-2 Answer Date Recorded PHQ Adult Total Score 17 06/04/2021 Hunger Vital Sign Answer Date Recorded Within the past 12 months, y ou worried that your food would run out before you got the money to buy more. Never true 01/15/20 22 Within the past 12 months, t he food you bought just didn't last and you didn't have money to get more. Never true 01/14/2022 Sex and Gender Information Value Date Recorded Sex Assigned at Male 07/27/2018 12:37 PM EDT Gender Identity Male 07/27/2018 12:37 PM EDT Sexual Orientation Straight 07/27/2018 12 :37 PM EDT Job Start Date Occupation Industry Not on file Not on file Not on file documented as of this encounter Plan of Treatment Upcoming Encounters Date Type Department Care Team (Late st Contact Info) Description 07/27/2023 11:20 AM EDT Laboratory Laboratory [facility] [address] [place] [phone] Jennifer Roman [address] [place] [id number] 07/30/2023 9:40 AM EDT Office Visit Family Practice [facility] [place] [address] [place] [address] Roberto Duncan III, MD [address] [place] [address] 08/17/2023 9:30 AM EDT Office Visit Cardiology, [facility] [address] [facility] [place] [address] Ashley Perez CRNP [address] [place] [address] 09/27/2023 10:00 AM EDT Office Visit Interventional Pain Center, [facility] [address] [facility] [place] [address] Leonard Cleveland CRNP [address] [place], [place] [phone] 11/09/2023 11:00 AM EDT Office Visit Sleep Disorders, [facility] [address] [facility] [place] [phone] Vidya Wong MD [address] [place] [address] Pending Results Name Type Priority Associated Diagnoses Date /Time LIPID PANEL WITH DIRECT LDL IF TG IS HIGH Lab Routine Type 2 diabetes mellitus with hemoglobin A1c goal of less than 8.0% ([facility]) 07/27/2023 10:34 AM EDT HEMOGLOBIN A1C Lab Routine Type 2 diabetes mellitus with hemoglobin A1c goal of less than 8.0% ([facility]) 07/27/2023 10:34 AM EDT ALBUMIN / CREATININE RATIO, URINE Lab Routine Type 2 diabetes mellitus with hemoglobin A1c goal of less than 8.0% ([facility]) 07/27/2023 10:37 AM EDT Scheduled Procedures Name Priority Associated Diagnoses Date/Ti me COLONOSCOPY FLEXIBLE PROXIMA L DIAGNOSTIC Recall Screening for colon cancer Health Maintenance Due Date Last Done Comments Alpha-1 Antitrypsin 1966 Depression, Most Recent Score >= 10 (will fire each visit until score < 10) 06/05/2021 06/04/2021 COVID-19 Vaccine ( season) 2022 01/29/2021, 06/12/2020, 05/15/2020 Albumin/Creatinine Ratio 04/06/2023 023, 06/20/2021, 04/18/2018, Additional history exists HbA1c 07/28/2023 01/27/2023, 05/0 03/2022, 04/06/2022, Additional history exists B-12 01/30/2024 01/29/2023, 03/22, 06/20/2021, Additional history exists Diabetic Foot Exam 01/30/2024 01/29/2023, 0 10/06/2021, 12/27/2020, Additional history exists GFR 05/13/2024 05/13/2023, 05/0 03/2022, 09/03/2021, Additional history exists Diabetic Eye Exam 06/09/2024 06/10/2023, , 06/19/2022, Additional history exists O2 ASSESSMENT COMPLETED IN PAST YEAR FOR COPD 06/20/2024 06/21/2023, 01/15/2016 DTaP,Tdap,and Td Vaccines (3 - Td or Tdap) 01/21/2032 01/20/2022, 07/30/2008 Pneumococcal Vaccine: 65+ Years Completed 10/05/2016, 03/29/2014, 04/22/2009 Zoster Vaccines Completed 01/09/2022, 10/22/2021 Colonoscopy Discontinued 07/15/2022, 06/21, 02/02/2012, Additional history exists Colorectal Cancer Screening Discontinued Influenza Vaccine (FLU shot) Completed 01/29/2023, 12/01/2021, 12/27/2020, Additional history exists Lung Cancer Screening Completed 04/12/2023 , 04/06/2022, 07/23/2017, Additional history exists Cologuard Discontinued Fecal Occult Blood Test Discontinued GARDASIL-HPV IMMUNIZATION SERIES Aged Out No longer eligible based on patient's age to complete this topic Hepatitis B Aged Out No longer eligi ble based on patient's age to complete this topic MENINGOCOCCAL (MENACTRA/MENVEO) Aged Out No longer eligible based on patient's age to complete this topic Sigmoidoscopy Discontinued documented as of this encounter Medical Devices Not on filedocumented as of this encounter Procedures Procedure Name Priority Date/Time Associated Diagnosis Comments CBC Routine 07/27/2023 10:34 AM EDT Type 2 diabetes mellitus with hemoglobin A1c goal of less than 8.0% (HCC) documented in this encounter Results * (ABNORMAL) CBC (07/27/2023 10:34 AM EDT) WBC 4.75 4.00 - 10.80 K/uL 07/27/2023 10:41 AM EDT [facility] 56- RBC 4.56 4.50 - 5.25 M/uL 07/27/2023 10:41 AM EDT [facility] 56- HGB 13.9(L) 14.0 - 16.8 g/dL 07/27/2023 10:41 AM EDT [facility] 56- HCT 42.1 40.0 - 48.4 % 07/27/2023 10:41 AM EDT [facility] 56- MCV 92.3 82.0 - 99.5 fL 07/27/2023 10:41 AM EDT [facility] 56 MCH 30.5 27.0 - 34.0 pg 07/27/2023 10:41 AM EDT [facility] 56 MCHC 33.0 32.0 - 36.0 g/dL 07/27/2023 10:41 AM EDT [facility] 56 RDW 13.4 11.5 - 15.5 % 07/27/2023 10:41 AM EDT [facility] 56- PLT 193 140 - 400 K/uL 07/27/2023 10:41 AM T [facility] 56- MPV 9.5 6.6 - 11.1 fL 07/27/2023 10:41 AM T [facility] 56 Blood Venous blood specimen / Unknown Venipuncture / Unknown 07/27/2023 10:34 AM EDT 07/27/2023 10:35 AM EDT Roberto Duncan III, MD LAB BLOOD ORDERABLE S [facility] [address] [place], [place] [phone] documented in this encounter Visit Diagnoses Diagnosis Type 2 diabetes mellitus with hemoglobin A1c goal of less than 8.0% (HCC) documented in this encounter Care Teams Directory Compiler Relationship Specialty Start Date End Date Roberto Duncan III, MD [address] [facility] [place] [address] PCP - General 03/12/01 documented as of this encounter
--- OUTSIDE RECORDS SUMMARY | 2023-08-10 06:17 | External Medical Summary | Summary of Care ---
Author Name Unknown Organization [facility] Address [address] [place] [address] Phone [phone] Care Team Providers Care Asphalt Paving Supervisor Name Role Phone Dakota PRASAD MD, Marisela Harkins Primary Care Provider [phone] Reason for Visit * Reason Comments Medication Refill Encounter Details Date Type Department Care Team (Late st Contact Info) Description 07/31/2023 Refill Family Practice [facility] [address] [facility] [place] [address] Marisela Tillman III, MD [address] [place] [address] Allergies No known active allergiesdocumented as of this encounter (statuses as of 08/02/2023) Medications Medication Sig Dispensed Refills Start Date End Date Status Meclizine HCl 25 MG Oral Tablet (Antivert) TAKE 1 TABLET BY MOUTH 3 TIMES DAILY NEEDED FOR DIZZINESS. 30 Tablet 0 03/10/2021 Active Fluticasone Propionate 50 MCG/ACT Nasal Suspension (Flonase)Indicati ons:Chronic frontal sinusitis Administer 2 Sprays into each nostril daily. 16 g 5 03/27/2021 Active Additional Information Patient taking differently:2 [place] Each Nostril Daily(AM),As needed, Reported on 06/17/2022 rOPINIRole HCl 2 MG Oral Tablet (Requip) TAKE ONE TABLET BY MOUTH EVERY DAY BEFORE BEDTIME 100 Tablet 1 10/21/2022 Active Naproxen 500 MG Oral Tablet (Naprosyn) [...] 1,000 mg Oral Daily(AM), Reported on 2023 Atorvastatin Calcium 80 MG Oral Tablet (Lipitor) TAKE ONE TABLET BY MOUTH EVERY DAY 90 Tablet 1 01/10/2023 4 Active hydrOXYzine HCl 10 MG Oral Tablet (Atarax) TAKE ONE TABLET BY MOUTH EVERY 6 HOURS NEEDED FOR ANXIETY 360 Tablet 1 02/02/2023 Active amLODIPine Besylate 5 MG Oral Tablet (Norvasc)Indicati ons:Essential hypertension with goal blood pressure less than 140/90 Take 1 Tablet by mouth in the morning. 100 Tablet 3 04/20/2023 Active Trelegy Ellipta 100-62.5-25 MCG/ACT Aerosol Powder Breath Activated (Fluticasone-Umec lidinium-Vilanter ol) Inhale by mouth 1 Puff in the morning. Rinse after. 180 Blister Dosing Unit 2 04/29/2023 Active Albuterol Sulfate HFA 108 (90 Base) MCG/ACT Inhalation Aerosol Solution INHALE TWO PUFFS BY MOUTH FOUR TIMES A DAY NEEDED FOR WHEEZING 54 g 2 04/29/2023 Active hydroCHLOROthiazi de 12.5 MG Oral Capsule (Hydrodiuril)Kamryn cations:Essential hypertension with goal blood pressure less than 140/90 Take 1 Capsule by mouth in the morning. 90 Capsule 3 05/07/2023 Active Fluticasone Propionate 50 MCG/ACT Nasal Suspension (Flonase) Administer 1 [place] into nostril at bedtime. 16 g 3 05/11/2023 Active Furosemide 20 MG Oral Tablet (Lasix)Indication s:Generalized edema TAKE ONE TABLET BY MOUTH EVERY DAY IN THE MORNING 100 Tablet 1 07/21/2023 5 Active Lisinopril 40 MG Oral Tablet TAKE ONE TABLET BY MOUTH EVERY MORNING 100 Tablet 1 08/02/2023 5 Active Lisinopril 40 MG Oral Tablet TAKE ONE TABLET BY MOUTH EVERY MORNING 100 Tablet 1 10/21/2022 4 Discontinue d(Refill) documented as of this encounter (statuses as of 08/02/2023) Active Problems Problem Noted Date Diagnosed Date COPD, group B, by GOLD 2017 classification 05/30 Overview: Per COPD GOLD Classification Atherosclerosis of aorta 07/23/2022 Atherosclerosis of coronary artery of [place] heart without angina pectoris 07/23/2022 Anxiety and depression 04/21/2022 Adjustment disorder with mixed anxiety and depre ssed mood 04/21/2022 Anxiety state 04/05/2019 Type 2 diabetes mellitus wit h hemoglobin A1c goal of less than 8.0% 10/13/2018 Obstructive sleep apnea of adult 02/17/2017 Essential hypertension with goal blood pressure [...] as of this encounter (statuses as of 08/02/2023) Resolved Problems Problem Noted Date Diagnosed Date Resolved Date COPD, group A, by GOLD 2017 classification 10/02/2019 06/03/2023 Overview: Per COPD GOLD Classification Basal cell carcinoma (BCC) o f skin of left ear 03/21/2019 01/20/2022 Hypertension associated with diabetes 02/17/2017 07/30/2023 Herpes zoster without complication 09/17/2016 02/17/2017 Type [...] as of this encounter (statuses as of 08/02/2023) Immunizations Name Administration Dates Next Due COVID-19 mRNA, LNP-s, No Pre serve, 2-Dose Series (Cue) 01/29/2021,06/12/2020,05/15/2020 Pneumococcal Conjugate Vacc, 13 Valent (Prevnar) [...] on file documented as of this encounter Miscellaneous Notes * Telephone Encounter - Donald Manzanares RPh - 08/02/2023 12:30 PM EDT Signed Prescriptions: Disp Refills Lisinopril 40 MG Oral Tablet 100 Ta*1 Sig: TAKE ONE TABLET BY MOUTH EVERY MORNINGAuthorizing Provider: MARISLEA TILLMAN III User: DONALD MANZANARES------- documented in this encounter Plan of Treatment Upcoming Encounters Date Type Department Care Team (Late st Contact Info) Description 08/17/2023 9:30 AM EDT Office Visit Cardiology, [facility] [address] [facility] [place] [address] Ashley Perez CRNP [address] [facility] [place] [address] 09/27/2023 10:00 AM EDT Office Visit Interventional Pain Center, [facility] [address] [place] [address] Leonard Cleveland CRNP [address] [place] [address] 10/04/2023 1:00 PM EDT [facility] [address] [facility] [place] [address] Rosangela Ortiz RDN [address] [facility] [place] [address] 11/09/2023 11:00 AM EDT Office Visit Sleep Disorders, [facility] [address] [place] [address] Vidya Wong MD [address] [place] [address] 12/01/2023 9:00 AM EDT Office Visit [facility] [address] [facility] [place] [address] Marisela Tillman III, MD [address] [facility] [place] [address] Scheduled Procedures Name Priority Associated Diagnoses Date/Ti me COLONOSCOPY FLEXIBLE PROXIMA L DIAGNOSTIC Recall Screening for colon cancer Health Maintenance Due Date Last Done Comments Alpha-1 Antitrypsin 1966 Depression, Most Recent Score >= 10 (will fire each visit until score < 10) 06/05/2021 06/04/2021 COVID-19 Vaccine ( season) 2022 01/29/2021, 06/12/2020, 05/15/2020 HbA1c 01/27/2024 07/27/2023, 10/2022, 07/20/2022, Additional history exists B-12 01/30/2024 01/29/2023, 03/22, 06/20/2021, Additional history exists Diabetic Foot Exam 01/30/2024 01/29/2023, 0 10/06/2021, 12/27/2020, Additional history exists GFR 05/13/2024 05/13/2023, 050 03/2022, 09/03/2021, Additional history exists Diabetic Eye Exam 06/09/2024 06/10/2023, , 06/19/2022, Additional history exists Albumin/Creatinine Ratio 07/26/2024 024, 04/06/2022, 06/20/2021, Additional history exists O2 ASSESSMENT COMPLETED IN PAST YEAR FOR COPD 07/29/2024 07/30/2023, 01/15/2016 DTaP,Tdap,and Td Vaccines (3 - Td [...] Not on filedocumented as of this encounter Care Teams Asphalt Paving Supervisor Relationship Specialty Start Date End Date Trimble SHANICE, Marisela Harkins MD [address] [place] [address] PCP - General 03/12/01 documented as of this encounter
--- OUTSIDE RECORDS SUMMARY | 2023-08-10 06:17 | External Medical Summary | Summary of Care ---
Author Name Unknown Organization [facility] Address [address] [place] [address] Phone [phone] Care Team Providers Care Gum Mixer Name Role Phone Dakota PRASAD MD, Roberto Harkins Primary Care Provider [phone] Reason for Referral * Evaluate & Treat - Unlimited Visits (Within 10 days (routine)) - Authorized Specialty Diagnoses / Procedures Referred By Contac t Referred To Contact Metal Cabinet Finisher / Nutrition Services Diagnoses Type 2 diabetes mellitus with hemoglobin A1c goal of less than 8.0% ([facility]) Roberto Duncan III, MD [address] [place] [address] Referral ID Status Reason Start Date Expiration Date Visits Requested Visits Authorized [id number] Authorized Specialty Services Required 07/30/[phone] Question Answer Referral Priority Within 10 days (routine) Where should this appointment be scheduled? ising Reason for Referral Type 2 Diabetes Is this a newly diagnosed condition? No Comments This referral is for Diabetes Self-Management Training (DSMT) by a recognized [place] [employer] (ADA) certified adapted physical educator: Nurse (RN), Registered Dietitian Desk Reporter (RDN), and/or Diabetes Medical Nutrition Therapy (MNT) Management (dietitian only). Diabetes educators are responsible for assessing the participant's diabetes education needs, and providing diabetes self-management training in accordance with the standards set by the ADA for DSMT. Any adjustment in diabetes therapy will be made within the guidelines of standards of practice and [facility] approved policies and procedures. I understand that the certified adapted physical educator will keep me informed. Areas of Education: Pathophysiology Nutrition Physical Activity Medications Monitoring Acute Complications Chronic Complications Psychosocial Management Promote Health/Behavior Change Participant will be offered 1:1 education training if there is a lack of classes available within 2 months. Providers can also order 1:1 training if indicated for participant for the following reasons: 1:1 Training for Insulin Initiation Participant Inappropriate for Class Setting By my electronic signature, I understand that my patient will be offered the comprehensive ADA content area above unless deemed not appropriate of I specify otherwise here: Reason for Visit * Reason Comments Re-Check Encounter Details Date Type Department Care Team (Late st Contact Info) Description 07/30/2023 9:40 AM EDT Office Visit Family Practice [facility] [address] [facility] [place] [address] Roberto Duncan III, MD [address] [place] [address] Type 2 diabetes mellitus with hemoglobin A1c goal of less than 8.0% ([facility])*; HTN, goal below 140/90 Allergies No known active allergiesdocumented as of this encounter (statuses as of 07/30/2023) Medications Medication Sig Dispensed Refills Start Date End Date Status Meclizine HCl 25 MG Oral Tablet (Antivert) TAKE 1 TABLET BY MOUTH 3 TIMES DAILY NEEDED FOR DIZZINESS. 30 Tablet 0 03/10/2021 Active Fluticasone Propionate 50 MCG/ACT Nasal Suspension (Flonase)Indicatio ns:Chronic frontal sinusitis Administer 2 Sprays into each nostril daily. 16 g 5 03/27/2021 Active Additional Information Patient taking differently:2 [place] Each Nostril Daily(AM),As needed, Reported on 06/17/2022 [...] (Glucophage XR)Indications:DM type 2 nursing care encounter ([facility]) TAKE THREE TABLETS BY MOUTH EVERY DAY [...] 50 MCG/ACT Nasal Suspension (Flonase) Administer 1 [place] into nostril at bedtime. 16 g 3 05/11/2023 Active Furosemide 20 MG Oral Tablet (Lasix)Indications :Generalized edema TAKE ONE TABLET BY MOUTH EVERY DAY IN THE MORNING 100 Tablet 1 07/21/2023 Active documented as of this encounter (statuses as of 07/30/2023) Active Problems Problem Noted Date Diagnosed Date COPD, group B, by GOLD 2017 classification 05/30 Overview: Per COPD GOLD Classification Atherosclerosis of aorta 07/23/2022 Atherosclerosis of coronary artery of robinson heart without angina pectoris 07/23/2022 Anxiety and [...] as of this encounter (statuses as of 07/30/2023) Resolved Problems Problem Noted Date Diagnosed Date [...] Modified per HTN protocol #16. PURE HYPERCHOLESTEROLEM 01/13/2006/ Overview: Per Lipid Taxonomy. 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 02/17/2017 Overview: ICD-10 update of inactive term OPEN WOUND LIP-COMPLICAT 12/07/2005 documented as of this encounter (statuses as of 07/30/2023) Immunizations Name Administration Dates Next Due COVID-19 mRNA, LNP-s, No Pre serve, 2-Dose Series ([employer]) 01/29/2021,06/12/2020,05/15/2020 Pneumococcal Conjugate Vacc, 13 Valent (Prevnar) [...] on file documented as of this encounter Last Filed Vital Signs Vital Sign Reading Time Taken Comments Blood Pressure 132/68 07/30/2023 10:13 AM EDT Pulse 58 07/30/2023 9:32 AM EDT Temperature 35.6 C (96 F) 07/30/2023 9:32 AM EDT Respiratory Rate 16 07/30/2023 9:32 AM EDT Oxygen Saturation 96% 07/30/2023 9:32 AM EDT Inhaled Oxygen Concentration - - Weight 96.6 kg (213 lb) 07/30/2023 9:32 AM EDT Height - - Body Mass Index 28.89 05/13/2023 10:08 AM EST documented in this encounter Progress Notes * Roberto Duncan III, MD - 07/30/2023 10:22 AM EDT Dickson Diamond is a 73 year old male. Chief Complaint Patient presents with Re-Check HPI: Follow up hypertension dyslipidemia diabetes mellitus COPD several concerns had labs A1c increase to 6 point 9 has been only taking 2 metformin per day not 3 not being very active can be extremely tired and feel like on back to sleep 2 hours after waking up generally when he wakes up he does not feel tired cardiology and Sleep Medicine notes reviewed TSH was normal in the fall hemoglobin 13.9 on recent labs no bleeding urine or bowels PMH: Patient Active Problem List Diagnosis Code ADVANCE DIRECTIVE INFORMATION Dyslipidemia, goal LDL below 100 E78.5 History of squamous cell carcinoma of skin Z85.828 History of squamous cell carcinoma Z85.89 History of basal cell carcinoma Z85.828 History of nonmelanoma skin cancer Z85.828 Essential hypertension with goal blood pressure less than 140/90 I10 Obstructive sleep apnea of adult G47.33 Type 2 diabetes mellitus with hemoglobin A1c goal of less than 8.0% ([facility]) E11.9 Anxiety state F41.1 Anxiety and depression F41.9, F32.A Adjustment disorder with mixed anxiety and depressed mood F43.23 Atherosclerosis of aorta ([facility]) I70.0 Atherosclerosis of coronary artery of robinson heart without angina pectoris I25.10 COPD, group B, by GOLD 2017 classification ([facility]) J44.9 Current Outpatient Medications Medication Sig Dispense Refill Meclizine HCl 25 MG Oral Tablet (Antivert) TAKE 1 TABLET BY MOUTH 3 TIMES DAILY NEEDED FOR DIZZINESS. 30 Tablet 0 Fluticasone Propionate 50 MCG/ACT Nasal Suspension (Flonase) Administer 2 Sprays into each nostril daily. (Patient taking differently: Administer 2 Sprays into each nostril in the morning. As needed.) 16 g 5 rOPINIRole HCl 2 MG Oral Tablet (Requip) TAKE ONE TABLET BY MOUTH EVERY DAY BEFORE BEDTIME 100 Tablet 1 Naproxen 500 MG Oral Tablet (Naprosyn) TAKE ONE TABLET BY MOUTH TWICE A DAY WITH MORNING AND EVENING MEALS (Patient taking differently: Takes once per day) 200 Tablet 1 Tamsulosin HCl 0.4 MG Oral Capsule (Flomax) TAKE ONE CAPSULE BY MOUTH EVERY MORNING 100 Capsule 1 metFORMIN HCl ER 500 MG Oral Tablet Extended Release 24 Hour (Glucophage XR) TAKE THREE TABLETS BY MOUTH EVERY DAY IN THE MORNING (Patient taking differently: Take 2 Tablets by mouth in the morning.)300 Tablet 1 Lisinopril 40 MG Oral Tablet TAKE ONE TABLET BY MOUTH EVERY MORNING 100 Tablet 1 Atorvastatin Calcium 80 MG Oral Tablet (Lipitor) TAKE ONE TABLET BY MOUTH EVERY DAY 90 Tablet 1 hydrOXYzine HCl 10 MG Oral Tablet (Atarax) TAKE ONE TABLET BY MOUTH EVERY 6 HOURS NEEDED FOR ANXIETY 360 Tablet 1 amLODIPine Besylate 5 MG Oral Tablet (Norvasc) Take 1 Tablet by mouth in the morning. 100 Tablet 3 Trelegy Ellipta 100-62.5-25 MCG/ACT Aerosol Powder Breath Activated (Pckmzawbdsr-Dlrdzvgazacn-Wimgufosuq) Inhale by mouth 1 Puff in the morning. Rinse after. 180 Blister Dosing Unit 2 Albuterol Sulfate HFA 108 (90 Base) MCG/ACT Inhalation Aerosol Solution INHALE TWO PUFFS BY MOUTH FOUR TIMES A DAY NEEDED FOR WHEEZING 54 g 2 hydroCHLOROthiazide 12.5 MG Oral Capsule (Hydrodiuril) Take 1 Capsule by mouth in the morning. 90 Capsule 3 Fluticasone Propionate 50 MCG/ACT Nasal Suspension (Flonase) Administer 1 [place] into nostril at bedtime. 16 g 3 Furosemide 20 MG Oral Tablet (Lasix) TAKE ONE TABLET BY MOUTH EVERY DAY IN THE MORNING 100 Tablet 1 No current facility-administered medications for this visit. Review of patient's allergies indicates: No Known Allergies Past Medical History: Diagnosis Date Benign neoplasm of colon 02/02/2012 COLONOSCOPY FLEXIBLE PROXIMAL DIAGNOSTIC performed by Patricia Sanders DO at [facility] [place],HYPERPLASTIC POLYPS REPEAT COLONOSCOPY IN 10 YEARS COPD (chronic obstructive pulmonary disease) ([facility]) Diabetic eye exam ([facility]) 05/05/2011 [facility], no retinopathy Diabetic eye exam ([facility]) 05/11/2013 no retinopathy GERD (gastroesophageal reflux disease) ANNEL (obstructive sleep apnea) Past Surgical History: Procedure Laterality Date C-/T-SPINE PARAVERTEBRAL FACET INJ, 1 LEVEL Right 12/01/2021 C-/T-SPINE PARAVERTEBRAL FACET INJ, 1 LEVEL performed by Shalonda Whittkaer MD at OR [facility] C-/T-SPINE PARAVERTEBRAL FACET INJ,2 LEVELS Right 12/01/2021 C-/T-SPINE PARAVERTEBRAL FACET INJ, 2 LEVELS performed by Shalonda Whittaker MD at OR [facility] C-/T-SPINE PARAVERTEBRAL FACET INJ,3 LEVELS Right 12/01/2021 C-/T-SPINE PARAVERTEBRAL FACET INJ, 3 OR MORE LEVELS performed by Shalonda Whittaker MD at OR [facility] COLONOSCOPY, DIAGNOSTIC (RECTUM) 02/02/2012 COLONOSCOPY FLEXIBLE PROXIMAL DIAGNOSTIC performed by Patricia Sanders DO at [facility] [place],HYPERPLASTIC POLYPS REPEAT COLONOSCOPY IN 10 YEARS COLONOSCOPY, DIAGNOSTIC (RECTUM) 07/15/2022 diverticulosis in sigmoid colon / no specimens collected / recall 5 to 10 years/ COLONOSCOPY FLEXIBLE PROXIMAL DIAGNOSTIC performed by Patricia Sanders DO at [facility] COLORECTAL CANCER SCREEN; COLON 01/31/2002 sigmoid diverticulosis, normal-Dr. Alcaraz INFORMATION 01/23/1992 cyst excision PROSTATE BIOPSY 01/24/2018 done in office, Dr Donnelly Objective: The patient is a 73 year old male BP 132/68 | Pulse 58 | Temp 35.6 C (96 F) (Tympanic) | Resp 16 | Wt 96.6 kg (213 lb) | SpO2 96%| BMI 28.89 kg/m | BSA 2.22 m General: alert, healthy, and no distress Eye Exam: PERRLA, extraocular movements intact, conjunctiva are pink and non- injected, sclera clear Oropharynx: no exudate, no erythema, lips, buccal mucosa, and tongue normal, and mucous membranes are moist Heart: regular rate & rhythm, no murmur, and no gallops Lungs: lungs clear to auscultation Extremities: no edema, no clubbing, no cyanosis ASSESSMENT: E11.9 Type 2 diabetes mellitus with hemoglobin A1c goal of less than 8.0% ([facility]) (primary encounter diagnosis) I10 HTN, goal below 140/90 PLAN: Has been taking hydroxyzine every morning not as needed will now only take if needed see if this helps with his fatigue will take 3 metformin per day try a workup exercise to do resistance work twicea week and slowly increase exercise aerobically to 150 minutes weekly get COVID vac seen now RSV vaccine discussed Total time 43 minutes Follow up in 4 month(s). Roberto Duncan III, MD documented in this encounter Nursing Notes * Cathy Lira LPN - 07/30/2023 9:29 AM EDT Dickson Diamond presents for 6 month recheck. Medications & HM reviewed. Discuss meds documented in this encounter Plan of Treatment Upcoming Encounters Date Type Department Care Team (Late st Contact Info) Description 08/17/2023 9:30 AM EDT Office Visit Cardiology, [facility] [address] [place] [address] Ashley Perez CRNP 132 [facility] [place] [address] 09/27/2023 10:00 AM EDT Office Visit Interventional Pain Center, [facility] [place] [address] Leonard Cleveland CRNP [facility] [address] 10/04/2023 1:00 PM EDT [facility] [address] [facility] [place] [address] Rosangela Ortiz RDN [address] [facility] [place] [address] 11/09/2023 11:00 AM EDT Office Visit Sleep Disorders, [facility] [address] [facility] [place] [address] Vidya Wong MD 400 [place] [address] 12/01/2023 9:00 AM EDT Office Visit Family Practice [facility] [place] [address] [facility] [place], [place] [address] Roberto Duncan III, MD [address] [facility] [place], [place] [address] Scheduled Orders Name Type Priority Associated Diagnoses Orde r Schedule HEMOGLOBIN A1C Lab Routine Type 2 diabetes mellitus with hemoglobin A1c goal of less than 8.0% (HCC) Expected: 07/30/2023 (Approximate), Expires: 07/29/2024 BASIC METABOLIC PANEL Lab Routine Type 2 diabetes mellitus with hemoglobin A1c goal of less than 8.0% (HCC) Expected: 07/30/2023 (Approximate), Expires: 07/29/2024 Scheduled Procedures Name Priority Associated Diagnoses Date/Ti me COLONOSCOPY FLEXIBLE PROXIMA L DIAGNOSTIC Recall Screening for colon cancer Scheduled Referrals Name Type Priority Associated Diagnoses Orde r Schedule DIABETES MANAGEMENT EDUCATION (ADA) REFERRAL Referral Within 10 days (routine) Type 2 diabetes mellitus with hemoglobin A1c goal of less than 8.0% (HCC) Ordered: 07/30/2023 Health Maintenance Due Date Last Done Comments Alpha-1 Antitrypsin 1966 Depression, Most Recent Score >= 10 (will fire each visit until score < 10) 06/05/2021 06/04/2021 COVID-19 Vaccine ( season) 2022 01/29/2021, 06/12/2020, 05/15/2020 HbA1c 01/27/2024 07/27/2023, 1110/2022, 07/20/2022, Additional history exists B-12 01/30/2024 01/29/2023, [...] Not on filedocumented as of this encounter Visit Diagnoses Diagnosis Type 2 diabetes mellitus with hemoglobin A1c goal of less than 8.0% (HCC)- Primary HTN, goal below 140/90 Unspecified essential hypertension documented in this encounter Care Teams Gum Mixer Relationship Specialty Start Date End Date Roberto Duncan III, MD [address] [place] [address] PCP - General 03/12/01 documented as of this encounter"
--- OUTSIDE RECORDS SUMMARY | 2023-08-10 06:17 | External Medical Summary | Summary of Care ---
Author Name Unknown Organization [facility] Address [address] [place] [address] Phone [phone] Care Team Providers Care Fabrication Welder Name Role Phone Dakota PRASAD MD, Roberto Harkins Primary Care Provider [phone] Reason for Visit * Reason Comments Medication Refill Encounter Details Date Type Department Care Team (Late st Contact Info) Description 08/02/2023 Refill Sleep Disorders, [facility] [address] [place] [address] Vidya Wong MD [address] [place] [address] Allergies No known active allergiesdocumented as of [...] 03/27/2021 Active Additional Information Patient taking differently:2 [place] Each Nostril Daily(AM),As needed, Reported on 06/17/2022 [...] 50 MCG/ACT Nasal Suspension (Flonase) Administer 1 [place] into nostril at bedtime. 16 g 3 [...] aorta 07/23/2022 Atherosclerosis of coronary artery of [place] heart without angina pectoris 07/23/2022 Anxiety and [...] mRNA, LNP-s, No Pre serve, 2-Dose Series ([employer]) 01/29/2021,06/12/2020,05/15/2020 Pneumococcal Conjugate Vacc, 13 Valent (Prevnar) [...] encounter Miscellaneous Notes * Telephone Encounter - Reynaldo Montesinos LPN - 08/02/2023 8:34 AM EDTRefused Prescriptions: Disp Refills Fluticasone Propionate 50 MCG/ACT Nasal [place]nel[place]*16 g 3 Sig: Administer 1 [place] into nostril at bedtime.Refused By: REYNALDO MONTESINOS for Refusal: Too soon------- * Telephone Encounter - Reynaldo Montesinos LPN - 08/02/2023 8:34 AM EDT Refiils remain documented in this encounter Plan of Treatment Upcoming Encounters Date Type Department Care Team (Late st Contact Info) Description 08/17/2023 9:30 AM EDT Office Visit Cardiology, [facility] [address] [facility] [place] [address] Ashley Perez CRNP [address] [place] [address] 09/27/2023 10:00 AM EDT Office Visit Interventional Pain Center, [facility] [address] [facility] [place] [address] Leonard Cleveland CRNP 400 [place] [address] 10/04/2023 1:00 PM EDT [facility] [address] [place] [address] Rosangela Ortiz RDN [facility] [place] [address] 11/09/2023 11:00 AM EDT Office Visit [address] Disorders, [address] [place] [address] Vidya Wong MD 400 [place] [address] 12/01/2023 9:00 AM EDT Office Visit Family Practice [place] 200 [facility] [place] [address] Roberto Duncan III, MD 200 [facility] [place] [address] Scheduled Procedures Name Priority Associated Diagnoses Date/Ti [...] Vaccines Completed 01/09/2022, 10/22/2021 Colonoscopy Discontinued 07/15/2022, 0408/2022, 02/02/2012, Additional history exists Colorectal Cancer Screening [...] filedocumented as of this encounter Care Teams Fabrication Welder Relationship Specialty Start Date End Date Roberto Duncan III, MD 200 [facility] [place] [address] PCP - General 03/12/01 documented as of this encounter
--- OUTSIDE RECORDS SUMMARY | 2023-08-10 06:17 | External Medical Summary | Summary of Care ---
Author Name Unknown Organization [facility] Address [address] [place] [address] Phone [phone] Care Team Providers Care Supervisor Industrial Arts Education Name Role Phone Dakota PRASAD MD, Roberto Harkins Primary Care Provider [phone] Reason for Visit * Reason Comments Medication Refill Encounter Details Date Type Department Care Team (Late st Contact Info) Description 08/04/2023 Refill Sleep Disorders, [facility] [address] [place] [address] Denny Amezcua MD [address] [place] [address] Allergies No known active allergiesdocumented as of this encounter (statuses as of 08/04/2023) Medications Medication Sig Dispensed Refills Start Date End Date Status Meclizine HCl 25 MG Oral Tablet (Antivert) TAKE 1 TABLET BY MOUTH 3 TIMES DAILY NEEDED FOR DIZZINESS. 30 Tablet 0 03/10/2021 Active Fluticasone Propionate 50 MCG/ACT Nasal Suspension (Flonase)Indicati ons:Chronic frontal sinusitis Administer 2 Sprays into each nostril daily. 16 g 5 03/27/2021 Active Additional Information Patient taking differently:2 [place] Each Nostril Daily(AM),As needed, Reported on 06/17/2022 [...] the morning. 90 Capsule 3 05/07/2023 Active Furosemide 20 MG Oral Tablet (Lasix)Indication s:Generalized edema TAKE ONE TABLET BY MOUTH EVERY DAY IN THE MORNING 100 Tablet 1 07/21/2023 5 Active Lisinopril 40 MG Oral Tablet TAKE ONE TABLET BY MOUTH EVERY MORNING 100 Tablet 1 08/02/2023 5 Active Fluticasone Propionate 50 MCG/ACT Nasal Suspension (Flonase) Administer 1 [place] into nostril at bedtime. 16 g 3 08/04/2023 Active Fluticasone Propionate 50 MCG/ACT Nasal Suspension (Flonase) Administer 1 [place] into nostril at bedtime. 16 g 3 05/11/2023 4 Discontinue d(Refill) documented as of this encounter (statuses as of 08/04/2023) Active Problems Problem Noted Date Diagnosed Date COPD, group B, by GOLD 2017 classification 05/30 Overview: Per COPD GOLD Classification Atherosclerosis of aorta 07/23/2022 Atherosclerosis of coronary artery of circle heart without angina pectoris 07/23/2022 Anxiety and [...] as of this encounter (statuses as of 08/04/2023) Resolved Problems Problem Noted Date Diagnosed Date [...] as of this encounter (statuses as of 08/04/2023) Immunizations Name Administration Dates Next Due COVID-19 mRNA, LNP-s, No Pre serve, 2-Dose Series ([employer]) 01/29/2021,06/12/2020,05/15/2020 Pneumococcal Conjugate Vacc, 13 Valent (Prevnar) [...] encounter Miscellaneous Notes * Telephone Encounter - Denny Amezcua MD - 08/04/2023 9:33 AM EDTSigned Prescriptions: Disp Refills Fluticasone Propionate 50 MCG/ACT Nasal [place]nel[place]*16 g 3 Sig: Administer 1 [place] into nostril at bedtime. Authorizing Provider: DENNY AMEZCUA * Telephone Encounter - Denny Amezcua MD - 08/04/2023 9:33 AM EDTSigned Prescriptions: Disp Refills Fluticasone Propionate 50 MCG/ACT Nasal [place]nel[place]*16 g 3 Sig: Administer 1 [place] into nostril at bedtime.Authorizing Provider: DENNY AMEZCUA documented in this encounter Plan of Treatment Upcoming Encounters Date Type Department Care Team (Late st Contact Info) Description 08/17/2023 9:30 AM EDT Office Visit Cardiology, [facility] [address] [place] [address] Ashley Perez CRNP [address] [place] [address] 09/27/2023 10:00 AM EDT Office Visit Interventional Pain Center, [address] [address] Leonard Cleveland CRNP [address] [place] [address] 10/04/2023 1:00 PM EDT [facility] [address] [place] [address] Rosangela Ortiz RDN [address] [place] [address] 11/09/2023 11:00 AM EDT Office Visit Sleep Disorders, [address] [id number] Denny Amezcua MD [address] [place] [address] 12/01/2023 9:00 AM EDT Office Visit Family Practice [employer] [facility] [place] [address] Roberto Duncan III, MD 200 [facility] [place] [address] Scheduled Procedures Name Priority Associated Diagnoses Date/Ti [...] filedocumented as of this encounter Care Teams Supervisor Industrial Arts Education Relationship Specialty Start Date End Date Roberto Duncan III, MD [address] [place] [address] PCP - General 03/12/01 documented as of this encounter
[2023-08-10] MEDS: lisinopril 40 MG TAB PO STA (06:18)
--- OUTSIDE RECORDS SUMMARY | 2023-08-10 06:18 | External Medical Summary ---
Author Name Unknown Address Unknown Organization [id number]:[facility] - [address] [facility] [address] Laboratory Report Ordering Provider Test Date Status PRIMO ANTONIO III 07/27/2023 10:34:44 Final Observation Date Value Abnormality Reference (Units ) Status Triglyceride 07/27/2023 10:34:44 96 <=174 ( mg/dL) Final Triglyceride Reference Range s (mg/dL):
<150 Acceptable
150-174 Borderline high
175-499 High
>=500 Very high Cholesterol 07/27/2023 10:34:44 167 <200 (mg /dL) Final Total Cholesterol Reference Ranges (mg/dL):
<200 Desirable
200-239 Borderline high
>=240 High HDL 07/27/2023 10:34:44 45 >39 (mg/dL ) Final HDL Cholesterol Reference Ra nges (mg/dL):
>=60 High (Desirable)
<50 Low (Undesirable) For Females
<40 Low (Undesirable) For Males NON-HDL CHOLESTEROL 07/27/2023 10:34:44 122 <=159 (mg/dL) Final Non-HDL Cholesterol Referenc e Range (mg/dL):
<100 Target level for high risk ASCVD patient
<130 Optimal for general population
130-159 Near optimal for general population
160-189 Borderline High
190-219 High
>=220 Very High LDL, (calculated) 07/27/2023 10:34:44 103 <= 129 (mg/dL) Final LDL Cholesterol Reference Ra nges (mg/dL):
<70 Target level for high risk ASCVD patient
<100 Optimal for general population
100-129 Near optimal for general population
130-159 Borderline high
160-189 High
>=190 Very high Performing Location [facility] - [address] [place] [address]
--- OUTSIDE RECORDS SUMMARY | 2023-08-10 06:18 | External Medical Summary | Summary of Care ---
Author Name Unknown Organization [facility] Address [address] [place] [address] Phone [phone] Care Team Providers Care Needle Punch Machine Operator Name Role Phone Dakota PRASAD MD, Roberto Harkins Primary Care Provider [phone] Reason for Visit * Reason Comments Procedure Right cervical TPI Pain Right side neck radi ating into right trapezius/shoulder. Intermittent aching pain. Denies numbness/tingling/burning. Ongoing, no trauma. Encounter Details Date Type Department Care Team (Late st Contact Info) Description 06/21/2023 1:30 PM EDT Office Visit Interventional Pain Center, [facility] [address] [place] [address] Leonard Cleveland CRNP [address], [place] [id number] Cervical myofascial pain syndrome* Allergies No known active allergiesdocumented as of this encounter (statuses as of 06/21/2023) Medications Medication Sig Dispensed Refills Start Date End Date Status Meclizine HCl 25 MG Oral Tablet (Antivert) TAKE 1 TABLET BY MOUTH 3 TIMES DAILY NEEDED FOR DIZZINESS. 30 Tablet 0 03/10/2021 Active Fluticasone Propionate 50 MCG/ACT Nasal Suspension (Flonase)Indicatio ns:Chronic frontal sinusitis Administer 2 Sprays into each nostril daily. 16 g 5 03/27/2021 Active Additional Information Patient taking differently:2 [place] Each Nostril Daily(AM),As needed, Reported on 06/17/2022 rOPINIRole HCl 2 MG Oral Tablet (Requip) TAKE ONE TABLET BY MOUTH EVERY DAY BEFORE BEDTIME 100 Tablet 1 10/21/2022 4 Active Naproxen 500 MG Oral Tablet (Naprosyn) TAKE ONE TABLET BY MOUTH TWICE A DAY WITH MORNING AND EVENING MEALS 200 Tablet 1 10/21/2022 4 Active Additional Information Patient taking differently: Takes once per day, Reported on 04/20/2023 Tamsulosin HCl 0.4 MG Oral Capsule (Flomax) TAKE ONE CAPSULE BY MOUTH EVERY MORNING 100 Capsule 1 10/21/2022 4 Active Furosemide 20 MG Oral Tablet (Lasix)Indications :Generalized edema TAKE ONE TABLET BY MOUTH EVERY DAY IN THE MORNING 100 Tablet 1 10/21/2022 4 Active metFORMIN HCl ER 500 MG Oral Tablet Extended Release 24 Hour (Glucophage XR)Indications:DM type 2 nursing care encounter ([facility]) TAKE THREE TABLETS BY MOUTH EVERY DAY IN THE MORNING 300 Tablet 1 10/21/2022 4 Active Additional Information Patient taking differently: 1,000 mg Oral Daily(AM), Reported on 2023 Lisinopril 40 MG Oral Tablet TAKE ONE TABLET BY MOUTH EVERY MORNING 100 Tablet 1 10/21/2022 4 Active Atorvastatin Calcium 80 MG Oral Tablet (Lipitor) TAKE ONE TABLET BY MOUTH EVERY DAY IN THE MORNING 90 Tablet 1 01/10/2023 4 Active hydrOXYzine [...] 50 MCG/ACT Nasal Suspension (Flonase) Administer 1 [place] into nostril at bedtime. 16 g 3 05/11/2023 Active Hospital, Clinic, or Other Facility Administered Medication Ordered Dose Route Frequency Start Date End Date Status Triamcinolone Acetonide (Kenalog) 40 MG/ML inj 40 mgIndications:Cervical myofascial pain syndrome 40 mg IM ONCE 06/21/2023 06/21/2023 Ended bupivacaine HCl (Sensorcaine) 0.25 % (PF) inj 10 mgIndications:Cervical myofascial pain syndrome 10 mg IM ONCE 06/21/2023 06/21/2023 Ended documented as of this encounter (statuses as of 06/21/2023) Active Problems Problem Noted Date Diagnosed Date COPD, group B, by GOLD 2017 classification 05/30 Overview: Per COPD GOLD Classification Atherosclerosis of aorta 07/23/2022 Atherosclerosis of coronary artery of [place] heart without angina pectoris 07/23/2022 Anxiety and [...] as of this encounter (statuses as of 06/21/2023) Resolved Problems Problem Noted Date Diagnosed Date [...] as of this encounter (statuses as of 06/21/2023) Immunizations Name Administration Dates Next Due COVID-19 mRNA, LNP-s, No Pre serve, 2-Dose Series (WedPics (deja mi)) 01/29/2021,06/12/2020,05/15/2020 Pneumococcal Conjugate Vacc, 13 Valent (Prevnar) [...] 1 965 - 05/06/2016 Smokeless Tobacco: Never Tobacco Cessation:Counseling Given: No Alcohol Use Standard Drinks/Week Comments Yes 0 [...] Sign Reading Time Taken Comments Blood Pressure 125/54 06/21/2023 1:43 PM EDT Pulse 72 06/21/2023 1:43 PM EDT Temperature 36.5 C (97.7 F) 06/21/2023 1:28 PM ED T Respiratory Rate - - Oxygen Saturation 97% 06/21/2023 1:43 PM EDT Inhaled Oxygen Concentration - - Weight - - Height - - Body Mass Index - - documented in this encounter Progress Notes * Leonard Cleveland CRNP - 06/21/2023 1:43 PM EDT INTERVENTIONAL PAIN CENTER PROCEDURE NOTE Name: Dickson Diamond Location: [facility] Outpatient Office Service: Pain Management Diagnosis: Myofascial Pain Provider: Leonard DICKINSON Procedure: Trigger Points Injections - Steroid and Local Anesthetic Estimated Blood Loss: Negligible Urine output: None Drains/Implants: None Complications: None [place] [employer]esthesi[employer] Score: II The patient is stable with normal heart sounds and lungs clear to auscultation. The patient's airway is normal. ROM neck: decreased flexion and decreased extension The patient has no loose teeth Technique: Today, we discussed alternative plans, benefits and potential risks which include, but not limited to bleeding, infections, nerve damage, pneumothorax, or failure of the procedure. The patient agreedto proceed with this procedure and an informed written consent was obtained. The patient was brought to the procedure room. The patient was identified using two (2) methods of identification (full name and date of ) as per [facility] protocol. The area to be injected was cleaned with alcohol. At this juncture, a TIMEOUT was observed during which all the salient details of theprocedure to be performed including the correct procedure, patients's allergies, position and site/side confirmation were verified and agreed upon by all the members of the team. Multiple trigger points over cervical spine involving trapezius, cervical extensors and levator scapula with taut muscle bands were injected with a solution containing 40 mg of Triamcinolone in 4 mL of 0.25% Bupivacaine. The patient's recovery area was observed. Patient tolerated the procedure well. The procedure was performed in an atraumatic fashion. Vital signs remained stable and neurovascular condition remain the same throughout the procedure. The patient recovered uneventfully in the recovery area and was discharged to home in stable condition with standard discharge instructions. Disposition: The patient will return to clinic for follow-up in 3 months. documented in this encounter Nursing Notes * Deepika Schafer RN - 06/21/2023 1:18 PM EDT Chief Complaint Patient presents with Procedure Right cervical TPI Pain Right side neck radiating into right trapezius/shoulder. Intermittent aching pain. Denies numbness/tingling/burning. Ongoing, no trauma. Aggravating factors / limitations: Turning Head, Driving Alleviating factors: Injections Previous Injections: bilateral NEHAL: 03/04/21 Right CMBB TON C3/4/5: 12/01/21 (30% relief) Right cervical TPI: 11/03/22 (70%) cervical TPI bilateral: 01/07/22 Neck/spine Surgery: no Joint replacement surgery: no Pain medications: Naproxen Blood thinners: none Diabetic: Yes, A1C 6.3 on 01/27/23A1C Physical Therapy: [facility] [place] 2021 for right side cervical pain documented in this encounter Plan of Treatment Upcoming Encounters Date Type Department Care Team (Late st Contact Info) Description 07/05/2023 11:00 AM EDT Scheduled Telephone Interventional Pain Center, [facility] [address] [place] [address] [facility], Nurse Pain Medicine [address] [place] [address] 07/30/2023 9:40 AM EDT Office Visit [facility] [address] [facility] [place] [place] [address] Roberto Duncan III, MD [address] [facility] [place] [address] 08/17/2023 9:30 AM EDT Office Visit Cardiology, [facility] [address] [place] [address] Ashley Perez CRNP [address] [place] [address] 09/27/2023 10:00 AM EDT Office Visit Interventional Pain Center, [facility] [address], [place] [phone] Leonard Cleveland CRNP [address] [facility] [place] [id number] 11/09/2023 11:00 AM EDT Office Visit Sleep Disorders, [address] [place] [id number] Vidya Wong MD [address] [place] [address] Scheduled Procedures Name Priority Associated Diagnoses Date/Ti me COLONOSCOPY FLEXIBLE PROXIMA L DIAGNOSTIC Recall Screening for colon cancer Health Maintenance Due Date Last Done Comments Alpha-1 Antitrypsin 1966 Depression, Most Recent Score >= 10 (will fire each visit until score < 10) 06/05/2021 06/04/2021 COVID-19 Vaccine ( season) 2022 01/29/2021, 06/12/2020, 05/15/2020 Albumin/Creatinine Ratio 04/06/2023 023, 06/20/2021, 04/18/2018, Additional history exists O2 ASSESSMENT COMPLETED IN PAST YEAR FOR COPD 07/16/2023 07/15/2022, 01/15/2016 HbA1c 07/28/2023 01/27/2023, 05/0 03/2022, 04/06/2022, Additional history exists B-12 01/30/2024 01/29/2023, 03/22, 06/20/2021, Additional history exists Diabetic Foot Exam 01/30/2024 01/29/2023, 0 10/06/2021, 12/27/2020, Additional history exists GFR 05/13/2024 05/13/2023, 05/0 03/2022, 09/03/2021, Additional history exists Diabetic Eye Exam 06/09/2024 06/10/2023, , 06/19/2022, Additional history exists DTaP,Tdap,and Td Vaccines (3 - Td or Tdap) 01/21/2032 01/20/2022, 07/30/2008 Pneumococcal Vaccine: 65+ Years Completed 10/05/2016, 03/29/2014, 04/22/2009 Zoster Vaccines Completed 01/09/2022, 10/22/2021 Colonoscopy Discontinued 07/15/2022, 06/21, 02/02/2012, Additional history exists Colorectal Cancer Screening Discontinued Influenza Vaccine (FLU shot) Completed 01/29/2023, 12/01/2021, 12/27/2020, Additional history exists LUNG CANCER SCREENING - USE SMARTSET [id number] Completed 04/12/2023, 04/06/2022, 07/23/2017, Additional history exists Cologuard Discontinued [...] as of this encounter Visit Diagnoses Diagnosis Cervical myofascial pain syndrome- Primary Mylagia and myositis, unspecified documented in this encounter Administered Medications Inactive Administered Medications - up to 3 most recent administrations Medication Order MAR Action Action Date Dose Rate Site bupivacaine HCl (Sensorcaine) 0.25 % (PF) inj 10 mg 10 mg (4 mL), Intramuscular, ONCE, On 06/21/23 at 1415, For 1 dose Given 06/21/2023 1:49 PM EDT 10 mg Other-Specify Triamcinolone Acetonide (Kenalog) 40 MG/ML inj 40 mg 40 mg, Intramuscular, ONCE, On 06/21/23 at 1415, For 1 dose Given 06/21/2023 1:49 PM EDT 40 mg Other -Specify documented in this encounter Care Teams Needle Punch Machine Operator Relationship Specialty Start Date End Date Dakota PRASAD, Roberto Harkins MD [address] [facility] [place] [address] PCP - General 03/12/01 documented as of this encounter
--- OUTSIDE RECORDS SUMMARY | 2023-08-10 06:18 | External Medical Summary | Summary of Care ---
Author Name Unknown Organization [facility] Address [address] [place] [address] Phone [phone] Care Team Providers Care Lacquer Dipping Machine Operator Name Role Phone Dakota PRASAD MD, Roberto Harkins Primary Care Provider [phone] Reason for Visit * Reason Onset Date Comments Nurse Telephone Follow Up 07/05/2023 F/u in jection Encounter Details Date Type Department Care Team (Late st Contact Info) Description 07/05/2023 11:00 AM EDT Scheduled Telephone Interventional Pain Center, [facility] [address] [place], [place] [phone] [facility], Nurse Pain Medicine [address] [place] [address] Arrived Allergies No known active allergiesdocumented as of this encounter (statuses as of 07/05/2023) Medications Medication Sig Dispensed Refills Start Date End Date Status Meclizine HCl 25 MG Oral Tablet (Antivert) TAKE 1 TABLET BY MOUTH 3 TIMES DAILY NEEDED FOR DIZZINESS. 30 Tablet 0 03/10/2021 Active Fluticasone Propionate 50 MCG/ACT Nasal Suspension (Flonase)Indicatio ns:Chronic frontal sinusitis Administer 2 Sprays into each nostril daily. 16 g 5 03/27/2021 Active Additional Information Patient taking differently:2 [place] Each Nostril Daily(AM),As needed, Reported on 06/17/2022 [...] (Glucophage XR)Indications:DM type 2 nursing care encounter ([facility]) TAKE THREE TABLETS BY MOUTH EVERY DAY [...] 50 MCG/ACT Nasal Suspension (Flonase) Administer 1 [place] into nostril at bedtime. 16 g 3 05/11/2023 Active documented as of this encounter (statuses as of 07/05/2023) Active Problems Problem Noted Date Diagnosed Date COPD, group B, by GOLD 2017 classification 05/30 Overview: Per COPD GOLD Classification Atherosclerosis of aorta 07/23/2022 Atherosclerosis of coronary artery of [place] heart without angina pectoris 07/23/2022 Anxiety and [...] as of this encounter (statuses as of 07/05/2023) Resolved Problems Problem Noted Date Diagnosed Date [...] as of this encounter (statuses as of 07/05/2023) Immunizations Name Administration Dates Next Due COVID-19 mRNA, LNP-s, No Pre serve, 2-Dose Series (Cellca) 01/29/2021,06/12/2020,05/15/2020 Pneumococcal Conjugate Vacc, 13 Valent (Prevnar) [...] encounter Miscellaneous Notes * Telephone Encounter - Deepika Schafer RN - 07/05/2023 10:43 AM EDT F/u right cervical TPI given 06/21/23. Pt reports 70% relief of pain. Pain is not as frequent and is much less intense. Still remains a 3/10 when he experiences the intermittent aching pain. Pt is pleased with the results. He is scheduledfor repeat injection 09/27/23. documented in this encounter Plan of Treatment Upcoming Encounters Date Type Department Care Team (Late st Contact Info) Description 07/30/2023 9:40 AM EDT Office Visit Family [facility] [address] [place] [address] [facility], [place] [address] Roberto Duncan III, MD [facility] [place] [place] [address] 08/17/2023 9:30 AM EDT Office Visit Cardiology, [facility] [address] [place] [address] Ashley Perez CRNP [address] [place] [address] 09/27/2023 10:00 AM EDT Office Visit Interventional Pain Center, [facility] [address] [place] [address] Leonard Cleveland CRNP [address] [place] [address] 11/09/2023 11:00 AM EDT Office Visit Sleep Disorders, [facility] [address] [place] [address] Vidya Wong MD [address] [place] [address] Scheduled Procedures Name Priority Associated Diagnoses Date/Ti [...] exists LUNG CANCER SCREENING - USE SMARTSET [id number] Completed 04/12/2023, 04/06/2022, 07/23/2017, Additional history exists [...] filedocumented as of this encounter Care Teams Lacquer Dipping Machine Operator Relationship Specialty Start Date End Date Roberto Duncan III, MD [address] [place] [address] PCP - General 03/12/01 documented as of this encounter
--- OUTSIDE RECORDS SUMMARY | 2023-08-10 06:18 | External Medical Summary | Summary of Care ---
Author Name Unknown Organization [facility] Address [address] [place] [address] Phone [phone] Care Team Providers Care Artillery Maintenance Supervisor Name Role Phone Dakota PRASAD MD, Roberto Harkins Primary Care Provider [phone] Reason for Visit * Reason Onset Date Comments Nurse Telephone Follow Up 07/05/2023 F/u in jection Encounter Details Date Type Department Care Team (Late st Contact Info) Description 07/05/2023 11:00 AM EDT Scheduled Telephone Interventional Pain Center, [facility] [address] [place], [place] [phone] [facility], Nurse Pain Medicine [address] [place] [address] Arrived Allergies No known active [...] 03/27/2021 Active Additional Information Patient taking differently:2 [place] Each Nostril Daily(AM),As needed, Reported on 06/17/2022 [...] (Glucophage XR)Indications:DM type 2 nursing care encounter ([facility]) TAKE THREE TABLETS BY MOUTH EVERY DAY [...] 50 MCG/ACT Nasal Suspension (Flonase) Administer 1 [place] into nostril at bedtime. 16 g 3 05/11/2023 Active documented as of this encounter (statuses as of 07/05/2023) Active Problems Problem Noted Date Diagnosed Date COPD, group B, by GOLD 2017 classification 05/30 Overview: Per COPD GOLD Classification Atherosclerosis of aorta 07/23/2022 Atherosclerosis of coronary artery of [place] heart without angina pectoris 07/23/2022 Anxiety and [...] mRNA, LNP-s, No Pre serve, 2-Dose Series (Klipfolio) 01/29/2021,06/12/2020,05/15/2020 Pneumococcal Conjugate Vacc, 13 Valent (Prevnar) [...] 07/30/2023 9:40 AM EDT Office Visit Family [facility] [address] [place] [address] [facility], [place] [address] Roberto Duncan III, MD 200 [facility] [place] [address] 08/17/2023 9:30 AM EDT Office Visit Cardiology, [facility] [address] [place] [address] Ashley Perez CRNP [address] [place] [address] 09/27/2023 10:00 AM EDT Office Visit Interventional Pain Center, [facility] [address] [place] [address] Leonard Cleveland CRNP [address] [place] [address] 11/09/2023 11:00 AM EDT Office Visit Sleep Disorders, [facility] [address] [place] [address] Vidya Wong MD [address] [place] [address] Scheduled Procedures Name Priority Associated Diagnoses Date/Ti [...] exists LUNG CANCER SCREENING - USE SMARTSET [id number] Completed 04/12/2023, 04/06/2022, 07/23/2017, Additional history exists [...] filedocumented as of this encounter Care Teams Artillery Maintenance Supervisor Relationship Specialty Start Date End Date Roberto Duncan III, MD [address] [place] [address] PCP - General 03/12/01 documented as of this encounter
--- OUTSIDE RECORDS SUMMARY | 2023-08-10 06:18 | External Medical Summary ---
Author Name Unknown Address Unknown Organization [id number]:[facility] - [address] [facility] [address] Laboratory Report Ordering Provider Test Date Status PRIMO ANTONIO III 07/27/2023 10:34:44 Final Observation Date Value Abnormality Reference (Units ) Status HbA1C 07/27/2023 10:34:44 6.9 Above high normal 4. 0-5.6 (%) Final The use of HbA1c to monitor glycemic status is based on normal hemoglobin and HbA composition. This test should not be used in patients with abnormal hemoglobin that affects the half life of the red blood cell or the in vivo glycation rates. Glucose, estimated average 07/27/2023 10:34:44 151 Above high normal <126 (mg/dL) De mccormick Performing Location [facility] - [address] [facility] [address]
--- OUTSIDE RECORDS SUMMARY | 2023-08-10 06:18 | External Medical Summary | Summary of Care ---
Author Name Unknown Organization [facility] Address [address] [place] [address] Phone [phone] Care Team Providers Care Bmw Sales Consultant Name Role Phone Dakota PRASAD MD, Marisela Harkins Primary Care Provider [phone] Reason for Visit * Reason Comments Medication Refill Encounter Details Date Type Department Care Team (Late st Contact Info) Description 07/20/2023 Refill Family Practice [facility] [address] [facility] [place] [address] Marisela Tillman III, MD [address] [place] [address] Generalized edema Allergies No known active allergiesdocumented as of this encounter (statuses as of 07/21/2023) Medications Medication Sig Dispensed Refills Start Date End Date Status Meclizine HCl 25 MG Oral Tablet (Antivert) TAKE 1 TABLET BY MOUTH 3 TIMES DAILY NEEDED FOR DIZZINESS. 30 Tablet 0 03/10/2021 Active Fluticasone Propionate 50 MCG/ACT Nasal Suspension (Flonase)Indicati ons:Chronic frontal sinusitis Administer 2 Sprays into each nostril daily. 16 g 5 03/27/2021 Active Additional Information Patient taking differently:2 [place] Each Nostril Daily(AM),As needed, Reported on 06/17/2022 [...] 50 MCG/ACT Nasal Suspension (Flonase) Administer 1 [place] into nostril at bedtime. 16 g 3 05/11/2023 Active Furosemide 20 MG Oral Tablet (Lasix)Indication s:Generalized edema TAKE ONE TABLET BY MOUTH EVERY DAY IN THE MORNING 100 Tablet 1 07/21/2023 5 Active Furosemide 20 MG Oral Tablet (Lasix)Indication s:Generalized edema TAKE ONE TABLET BY MOUTH EVERY DAY IN THE MORNING 100 Tablet 1 10/21/2022 4 Discontinue d(Refill) documented as of this encounter (statuses as of 07/21/2023) Active Problems Problem Noted Date Diagnosed Date [...] as of this encounter (statuses as of 07/21/2023) Resolved Problems Problem Noted Date Diagnosed Date [...] as of this encounter (statuses as of 07/21/2023) Immunizations Name Administration Dates Next Due COVID-19 mRNA, LNP-s, No Pre serve, 2-Dose Series (GradeFund) 01/29/2021,06/12/2020,05/15/2020 Pneumococcal Conjugate Vacc, 13 Valent (Prevnar) [...] encounter Miscellaneous Notes * Telephone Encounter - Huma Saavedra RPh - 07/21/2023 3:48 PM EDTSigned Prescriptions: Disp Refills Furosemide 20 MG Oral Tablet (Lasix) 100 Ta*1 Sig: TAKE ONE TABLET BY MOUTH EVERY DAY IN THE MORNINGAuthorizing Provider: MARISELA TILLMAN III User: HUMA SAAVEDRA documented in this encounter Plan of Treatment Upcoming Encounters Date Type Department Care Team (Late st Contact Info) Description 07/30/2023 9:40 AM EDT Office Visit Family Practice [facility] [address] [facility] [place], [place] [address] Marisela Tillman III, MD [address] [facility] [place] [address] 08/17/2023 9:30 AM EDT Office Visit Cardiology, [facility] [address] [place] [address] Ashley Perez CRNP [address] [place] [address] 09/27/2023 10:00 AM EDT Office Visit Interventional Pain Center, [facility] [address] [place] [address] Leonard Cleveland CRNP [address] [place] [address] 11/09/2023 11:00 AM EDT Office Visit Sleep Disorders, [facility] [address] [place], [place] [phone] Vidya Wong MD [address] [place] [address] Scheduled Procedures Name Priority Associated Diagnoses Date/Ti [...] as of this encounter Visit Diagnoses Diagnosis Generalized edema Edema documented in this encounter Care Teams Bmw Sales Consultant Relationship Specialty Start Date End Date Marisela Tillman III, MD [address] [place] [address] PCP - General 03/12/01 documented as of this encounter
--- OUTSIDE RECORDS SUMMARY | 2023-08-10 06:18 | External Medical Summary ---
Author Name Unknown Address Unknown Organization K09:[facility] [address] [address] Laboratory Report Ordering Provider Test Date Status MARISELAPRIMO III 07/27/2023 10:34:44 Final Observation Date Value Abnormality Reference (Units ) Status WBC, Total 07/27/2023 10:34:44 4.75 4.00-10.8 0 (K/uL) Final RBC 07/27/2023 10:34:44 4.56 4.50-5.25 (M/uL) Final Hemoglobin 07/27/2023 10:34:44 13.9 Below low normal 14 .0-16.8 (g/dL) Final HCT 07/27/2023 10:34:44 42.1 40.0-48.4 (%) Final MCV 07/27/2023 10:34:44 92.3 82.0-99.5 (fL) Final MCH 07/27/2023 10:34:44 30.5 27.0-34.0 (pg) Final MCHC 07/27/2023 10:34:44 33.0 32.0-36.0 (g/dL) Final RDW 07/27/2023 10:34:44 13.4 11.5-15.5 (%) Final Platelets 07/27/2023 10:34:44 193 140-400 (K /uL) Final MPV 07/27/2023 10:34:44 9.5 6.6-11.1 ( fL) Final Performing Location [facility] [place] [address]
--- OUTSIDE RECORDS SUMMARY | 2023-08-10 06:18 | External Medical Summary ---
Author Name Unknown Address Unknown Organization K01:[facility] - [address] [place] [id number] Laboratory Report Ordering Provider Test Date Status PRIMO ANTONIO III 07/27/2023 10:37:09 Final Normal: <30 mg/g creatinine< br/>High: 30-300 mg/g creatinine
Very High: >300 mg/g creatinine
Nephrotic: >2200 mg/g creatinine Observation Date Value Abnormality Reference (Units ) Status Albumin, Urine 07/27/2023 10:37:09 <1.20 (mg/dL) Final Creatinine, Urine 07/27/2023 10:37:09 189 (mg/dL) Final Albumin/Creatinine [Mass Ratio] in Urine 07/27/2023 10:37:09 <6 <30 (mg/g Creat) Final Performing Location [facility] - [address] [place] [id number]
--- OUTSIDE RECORDS SUMMARY | 2023-08-10 06:18 | External Medical Summary | Summary of Care ---
Author Name Unknown Organization [facility] Address [address] [place] [address] Phone [phone] Care Team Providers Care Ratings Analyst Name Role Phone Dakota PRASAD MD, Roberto Harkins Primary Care Provider Reason for Visit * Reason Comments Outpatient Testing Encounter Details Date Type Department Care Team (Late st Contact Info) Description 07/27/2023 10:30 AM EDT Laboratory Laboratory [facility] [address] [facility] [place] [id number] [facility] [address] [place] [address] Type 2 diabetes mellitus with hemoglobin A1c goal of less than 8.0% ([facility]) Allergies No known active allergiesdocumented as of [...] 03/27/2021 Active Additional Information Patient taking differently:2 [place] Each Nostril Daily(AM),As needed, Reported on 06/17/2022 [...] 50 MCG/ACT Nasal Suspension (Flonase) Administer 1 [place] into nostril at bedtime. 16 g 3 [...] aorta 07/23/2022 Atherosclerosis of coronary artery of [place] heart without angina pectoris 07/23/2022 Anxiety and [...] mRNA, LNP-s, No Pre serve, 2-Dose Series ([employer]) 01/29/2021,06/12/2020,05/15/2020 Pneumococcal Conjugate Vacc, 13 Valent (Prevnar) [...] Description 07/27/2023 11:20 AM EDT Laboratory Laboratory [facility] [place] [address] [place] [id number] Jennifer Roman [address] [place] [address] 07/30/2023 9:40 AM EDT Office Visit Family Practice Nannette [place] [address] [place] [address] Roberto Duncan III, MD [address] [place] [address] 08/17/2023 9:30 AM EDT Office Visit Cardiology, [facility] [address] [facility] [place] [address] Ashley Perez CRNP [address] [place] [address] 09/27/2023 10:00 AM EDT Office Visit Interventional Pain Center, [facility] 400 [place] [address] Leonard Cleveland CRNP [address] [place], [place] [phone] 11/09/2023 11:00 AM EDT Office Visit Sleep Disorders, [facility] [address] [place], [place] [phone] Vidya Wong MD 400 [place] [address] Pending Results Name Type Priority Associated Diagnoses Date /Time CBC Lab Routine Type 2 diabetes mellitus with hemoglobin A1c goal of less than 8.0% ([facility]) 07/27/2023 10:34 AM EDT LIPID PANEL WITH DIRECT LDL IF TG IS HIGH Lab Routine Type 2 diabetes mellitus with hemoglobin A1c goal of less than 8.0% ([facility]) 07/27/2023 10:34 AM EDT HEMOGLOBIN A1C Lab Routine Type 2 diabetes mellitus with hemoglobin A1c goal of less than 8.0% ([facility]) 07/27/2023 10:34 AM EDT ALBUMIN / CREATININE RATIO, URINE Lab Routine Type 2 diabetes mellitus with hemoglobin A1c goal of less than 8.0% ([facility]) 07/27/2023 10:37 AM EDT Scheduled Procedures Name [...] (HCC) documented in this encounter Care Teams Ratings Analyst Relationship Specialty Start Date End Date Roberto Duncan III, MD 200 [place] [address] PCP - General 03/12/01 documented as of this encounter
--- OUTSIDE RECORDS SUMMARY | 2023-08-10 06:18 | External Medical Summary | Summary of Care ---
Author Name Unknown Organization [facility] Address [address] [place] [address] Phone [phone] Care Team Providers Care Beekeeper Farmer Name Role Phone Dakota PRASAD MD, Roberto Harkins Primary Care Provider [phone] Reason for Visit * Reason Onset Date Comments Appointment 06/14/2023 Encounter Details Date Type Department Care Team (Late st Contact Info) Description 06/14/2023 Telephone Interventional Pain Center, [address] [phone] Leonard Cleveland, RN Appointment Allergies No known active allergiesdocumented as of this encounter (statuses as of 06/14/2023) Medications Medication Sig Dispensed Refills Start Date End Date Status Meclizine HCl 25 MG Oral Tablet (Antivert) TAKE 1 TABLET BY MOUTH 3 TIMES DAILY NEEDED FOR DIZZINESS. 30 Tablet 0 03/10/2021 Active Fluticasone Propionate 50 MCG/ACT Nasal Suspension (Flonase)Indicatio ns:Chronic frontal sinusitis Administer 2 Sprays into each nostril daily. 16 g 5 03/27/2021 Active Additional Information Patient taking differently:2 [place] Each Nostril Daily(AM),As needed, Reported on 06/17/2022 [...] 50 MCG/ACT Nasal Suspension (Flonase) Administer 1 [place] into nostril at bedtime. 16 g 3 05/11/2023 Active documented as of this encounter (statuses as of 06/14/2023) Active Problems Problem Noted Date Diagnosed Date COPD, group B, by GOLD 2017 classification 05/30 Overview: Per COPD GOLD Classification Atherosclerosis of aorta 07/23/2022 Atherosclerosis of coronary artery of [place] heart without angina pectoris 07/23/2022 Anxiety and [...] as of this encounter (statuses as of 06/14/2023) Resolved Problems Problem Noted Date Diagnosed Date [...] as of this encounter (statuses as of 06/14/2023) Immunizations Name Administration Dates Next Due COVID-19 mRNA, LNP-s, No Pre serve, 2-Dose Series ([employer]) 01/29/2021,06/12/2020,05/15/2020 Pneumococcal Conjugate Vacc, 13 Valent (Prevnar) [...] encounter Miscellaneous Notes * Telephone Encounter - Betty Monte OSA - 06/14/2023 12:34 PM EDT Procedure ny'd for 06-21-23 at 1:30pm. * Telephone Encounter - Valeria Muhammad OSA - 06/14/2023 11:51 AM EDT Patient calling requesting to reschedule appointment from today, not feeling well, but wants a return all to reschedule. documented in this encounter Plan of Treatment Upcoming Encounters Date Type Department Care Team (Late st Contact Info) Description 06/21/2023 1:30 PM EDT Office Visit Interventional Pain Center, [address] [place] [address] Leonard Cleveland CRNP 400 [facility] [place] [address] 07/30/2023 9:40 AM EDT Office Visit Family Practice [facility] [address] [facility] [place] [address] Roberto Duncan III, MD 200 [facility] [place] [address] 08/17/2023 9:30 AM EDT Office Visit Cardiology, [facility] [address] [place] [address] Ashley Perez CRNP [address] [place] [address] 11/09/2023 11:00 AM EDT Office Visit Sleep Disorders, [facility] [address] [place] [address] Vidya Wong MD 400 [place] [address] Scheduled Procedures Name Priority Associated Diagnoses Date/Ti me COLONOSCOPY FLEXIBLE PROXIMA L DIAGNOSTIC Recall Screening for colon cancer Health Maintenance Due Date Last Done Comments Alpha-1 Antitrypsin 1966 Depression, Most Recent Score >= 10 (will fire each visit until score < 10) 06/05/2021 06/04/2021 COVID-19 Vaccine ( season) 2022 01/29/2021, 06/12/2020, 05/15/2020 Albumin/Creatinine Ratio 04/06/2023 023, 06/20/2021, 04/18/2018, Additional history exists Diabetic Eye Exam 06/20/2023 06/19/2022, , 06/19/2022, Additional history exists O2 ASSESSMENT COMPLETED IN PAST YEAR FOR COPD 07/16/2023 07/15/2022, 01/15/2016 HbA1c 07/28/2023 01/27/2023, 05/0 03/2022, 04/06/2022, Additional history exists B-12 01/30/2024 01/29/2023, 03/22, 06/20/2021, Additional history exists Diabetic Foot Exam 01/30/2024 01/29/2023, 0 10/06/2021, 12/27/2020, Additional history exists GFR 05/13/2024 05/13/2023, 05/0 03/2022, 09/03/2021, Additional history exists DTaP,Tdap,and Td Vaccines (3 - Td or Tdap) 01/21/2032 01/20/2022, 07/30/2008 Pneumococcal Vaccine: 65+ Years Completed 10/05/2016, 03/29/2014, 04/22/2009 Zoster Vaccines Completed 01/09/2022, 10/22/2021 Colonoscopy Discontinued 07/15/2022, 06/21, 02/02/2012, Additional history exists Colorectal Cancer Screening Discontinued Influenza Vaccine (FLU shot) Completed 01/29/2023, 12/01/2021, 12/27/2020, Additional history exists LUNG CANCER SCREENING - USE SMARTSET [id number] Completed 04/12/2023, 04/06/2022, 07/23/2017, Additional history exists [...] filedocumented as of this encounter Care Teams Beekeeper Farmer Relationship Specialty Start Date End Date Dakota SHANICE, Roberto Harkins MD 200 [place] [address] PCP - General 03/12/01 documented as of this encounter
--- OUTSIDE RECORDS SUMMARY | 2023-08-10 06:18 | External Medical Summary | Summary of Care ---
Author Name Unknown Organization [facility] Address [address] [place] [address] Phone [phone] Care Team Providers Care Cigarette And Filter Chief Inspector Name Role Phone Dakota PRASAD MD, Roberto Harkins Primary Care Provider [phone] Reason for Visit * Reason Onset Date Comments Order Request 07/23/2023 Encounter Details Date Type Department Care Team (Late st Contact Info) Description 07/23/2023 Telephone Family Practice [facility] [place] 200 [facility] [place] [address] Roberto Duncan III, MD 200 [place] [address] Order Request Allergies No known active allergiesdocumented as of this encounter (statuses as of 07/23/2023) Medications Medication Sig Dispensed Refills Start Date End Date Status Meclizine HCl 25 MG Oral Tablet (Antivert) TAKE 1 TABLET BY MOUTH 3 TIMES DAILY NEEDED FOR DIZZINESS. 30 Tablet 0 03/10/2021 Active Fluticasone Propionate 50 MCG/ACT Nasal Suspension (Flonase)Indicatio ns:Chronic frontal sinusitis Administer 2 Sprays into each nostril daily. 16 g 5 03/27/2021 Active Additional Information Patient taking differently:2 [place] Each Nostril Daily(AM),As needed, Reported on 06/17/2022 [...] (Glucophage XR)Indications:DM type 2 nursing care encounter ([facility]) TAKE THREE TABLETS BY MOUTH EVERY DAY [...] 50 MCG/ACT Nasal Suspension (Flonase) Administer 1 [place] into nostril at bedtime. 16 g 3 05/11/2023 Active Furosemide 20 MG Oral Tablet (Lasix)Indications :Generalized edema TAKE ONE TABLET BY MOUTH EVERY DAY IN THE MORNING 100 Tablet 1 07/21/2023 Active documented as of this encounter (statuses as of 07/23/2023) Active Problems Problem Noted Date Diagnosed Date COPD, group B, by GOLD 2017 classification 05/30 Overview: Per COPD GOLD Classification Atherosclerosis of aorta 07/23/2022 Atherosclerosis of coronary artery of [place] heart without angina pectoris 07/23/2022 Anxiety and [...] as of this encounter (statuses as of 07/23/2023) Resolved Problems Problem Noted Date Diagnosed Date [...] as of this encounter (statuses as of 07/23/2023) Immunizations Name Administration Dates Next Due COVID-19 mRNA, LNP-s, No Pre serve, 2-Dose Series ([employer]) 01/29/2021,06/12/2020,05/15/2020 Pneumococcal Conjugate Vacc, 13 Valent (Prevnar) [...] encounter Miscellaneous Notes * Telephone Encounter - Cathy Lira LPN - 07/23/2023 12:51 PM EDT Pended labs that are due. Any other labs you would like done before appt on 07/27? * Telephone Encounter - Linda Quiroga OSA - 07/23/2023 11:50 AM EDT An order was requested for this patient. Name of Requesting Provider: Dr Duncan Order Requested: labs Diagnosis/Reason for Request: routine check up, Wants everything checked that can be checked If order request is for Mammogram: Is the patient having any breast symptoms? N/A Is there a chance of ? N/A Has the patient had any breast problems in the past? NA What location AND department does the patient wish to have their order completed at? [facility] Fax Number, if applicable: na If the caller is not a current patient, please advise the patient to call their current PCP to havethe order's prior to being seen in our office. The patient was informed that our providers would not order anything (medication, labs, etc.) prior to being seen. documented in this encounter Plan of Treatment Upcoming Encounters Date Type Department Care Team (Late st Contact Info) Description 07/27/2023 11:20 AM EDT Laboratory Laboratory [facility] 200 [facility] [place] [id number] [facility] 200 [facility] [place] [address] 07/30/2023 9:40 AM EDT Office Visit Family Practice [facility] 200 [facility] [place] [address] Roberto Duncan III, MD 200 [facility] [place] [address] 08/17/2023 9:30 AM EDT Office Visit Cardiology, [facility] 132 [facility] [place] [address] Ashley Perez CRNP 132 [facility] [place] [address] 09/27/2023 10:00 AM EDT Office Visit [facility] [facility] Center, [address] [place] [address] Leonard Cleveland CRNP [facility] [place] [address] 11/09/2023 11:00 AM EDT Office [address], [address] [place] [address] Vidya Wong MD [address] [place], [place] [address], [place] [address] Scheduled Orders Name Type Priority Associated Diagnoses Orde r Schedule CBC Lab Routine Type 2 diabetes mellitus with hemoglobin A1c goal of less than 8.0% (HCC) Expected: 07/23/2023 (Approximate), Expires: 07/22/2024 LIPID PANEL WITH DIRECT LDL IF TG IS HIGH Lab Routine Type 2 diabetes mellitus with hemoglobin A1c goal of less than 8.0% (HCC) Expected: 07/23/2023, Expires: 07/22/2024 ALBUMIN / CREATININE RATIO, URINE Lab Routine Type 2 diabetes mellitus with hemoglobin A1c goal of less than 8.0% (HCC) Expected: 07/23/2023 (Approximate), Expires: 07/22/2024 HEMOGLOBIN A1C Lab Routine Type 2 diabetes mellitus with hemoglobin A1c goal of less than 8.0% (HCC) Expected: 07/23/2023 (Approximate), Expires: 07/22/2024 Scheduled Procedures Name Priority Associated Diagnoses Date/Ti [...] goal of less than 8.0% (HCC)- Primary documented in this encounter Care Teams Cigarette And Filter Chief Inspector Relationship Specialty Start Date End Date Roberto Duncan III, MD 200 [facility] [place] [address] PCP - General 03/12/01 documented as of this encounter
--- OUTSIDE RECORDS SUMMARY | 2023-08-10 06:18 | External Medical Summary | Summary of Care ---
Author Name Unknown Organization [facility] Address [address] [place] [address] Phone [phone] Care Team Providers Care Cement Mixer Name Role Phone Dakota PRASAD MD, John E Primary Care Provider Encounter Details Date Type Department Care Team (Late st Contact Info) Description 06/15/2023 Orders Only Family Practice [facility] [address] [place] [address] Roberto Duncan III, MD [address] [facility] [place] [address] Allergies No known active allergiesdocumented as of this encounter (statuses as of 06/15/2023) Medications Medication Sig Dispensed Refills Start Date End Date Status Meclizine HCl 25 MG Oral Tablet (Antivert) TAKE 1 TABLET BY MOUTH 3 TIMES DAILY NEEDED FOR DIZZINESS. 30 Tablet 0 03/10/2021 Active Fluticasone Propionate 50 MCG/ACT Nasal Suspension (Flonase)Indicatio ns:Chronic frontal sinusitis Administer 2 Sprays into each nostril daily. 16 g 5 03/27/2021 Active Additional Information Patient taking differently:2 [place] Each Nostril Daily(AM),As needed, Reported on 06/17/2022 [...] 50 MCG/ACT Nasal Suspension (Flonase) Administer 1 [place] into nostril at bedtime. 16 g 3 05/11/2023 Active documented as of this encounter (statuses as of 06/15/2023) Active Problems Problem Noted Date Diagnosed Date COPD, group B, by GOLD 2017 classification 05/30 Overview: Per COPD GOLD Classification Atherosclerosis of aorta 07/23/2022 Atherosclerosis of coronary artery of [place] heart without angina pectoris 07/23/2022 Anxiety and [...] as of this encounter (statuses as of 06/15/2023) Resolved Problems Problem Noted Date Diagnosed Date [...] Modified per HTN protocol #16. PURE HYPERCHOLESTEROLEM 01/13/2006 12/ Overview: Per Lipid Taxonomy. 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 02/17/2017 Overview: ICD-10 update of inactive term OPEN WOUND LIP-COMPLICAT 12/07/2005 documented as of this encounter (statuses as of 06/15/2023) Immunizations Name Administration Dates Next Due COVID-19 [...] PM EDT Office Visit Interventional Pain Center, [facility] [address] [place] [address] Leonard Cleveland CRNP 400 [place] [address] 07/30/2023 9:40 AM EDT Office Visit Family Practice [facility] [place] [address] [place] [address] Roberto Duncan III, MD [address] [place] [address] 08/17/2023 9:30 AM EDT Office Visit Cardiology, [facility] [address] [place] [address] Ashley Perez CRNP 132 [facility] [place] [address] 11/09/2023 11:00 AM EDT Office Visit Sleep Disorders, [facility] [address] [place] [address] Vidya Wong MD 400 [facility] [place] [address] Scheduled Procedures Name Priority Associated Diagnoses [...] 09/03/2021, Additional history exists Diabetic Eye Exam 06/14/2024 06/10/2023, , 06/19/2022, Additional history exists DTaP,Tdap,and Td Vaccines (3 - Td or Tdap) 01/21/2032 01/20/2022, 07/30/2008 Pneumococcal Vaccine: 65+ Years Completed 10/05/2016, 03/29/2014, 04/22/2009 Zoster Vaccines Completed 01/09/2022, 10/22/2021 Colonoscopy Discontinued 07/15/2022, 06/21, 02/02/2012, Additional history exists Colorectal Cancer Screening Discontinued Influenza Vaccine (FLU shot) Completed 01/29/2023, 12/01/2021, 12/27/2020, Additional history exists LUNG CANCER SCREENING - USE SMARTSET [id number] Completed 04/12/2023, 04/06/2022, 07/23/2017, Additional history exists [...] Procedure Name Priority Date/Time Associated Diagnosis Comments DIABETIC EYE EXAM Routine 06/10/2023 documented in this encounter Results * DIABETIC EYE EXAM (06/10/2023) 06/10/2023 History Per Patient OTHER OUTSIDE LAB (SEE SCANNED REPORT) documented in this encounter Care Teams Cement Mixer Relationship Specialty Start Date End Date Roberto Duncan III, MD [address] [place] [address] PCP - General 03/12/01 documented as of this encounter
--- OUTSIDE RECORDS SUMMARY | 2023-08-10 06:19 | External Medical Summary | Summary of Care ---
Author Name Unknown Organization [facility] Address [address] [place] [address] Phone [phone] Care Team Providers Care Candle Pourer Name Role Phone Dakota PRASAD MD, Roberto Harkins Primary Care Provider [phone] Reason for Visit * Reason Onset Date Comments Advice 05/27/2023 Question re: noc turnal oxygen Encounter Details Date Type Department Care Team (Late st Contact Info) Description 05/27/2023 Telephone Access Center, [place] [address] [facility] *DO NOT REMOVE THIS DEPARTMENT* [place] [address] Services, Scheduling [address] [place] [address] Advice (Question re: nocturnal oxygen) Allergies No known active allergiesdocumented as of this encounter (statuses as of 05/31/2023) Medications Medication Sig Dispensed Refills Start Date End Date Status Meclizine HCl 25 MG Oral Tablet (Antivert) TAKE 1 TABLET BY MOUTH 3 TIMES DAILY NEEDED FOR DIZZINESS. 30 Tablet 0 03/10/2021 Active Fluticasone Propionate 50 MCG/ACT Nasal Suspension (Flonase)Indicatio ns:Chronic frontal sinusitis Administer 2 Sprays into each nostril daily. 16 g 5 03/27/2021 Active Additional Information Patient taking differently:2 [place] Each Nostril Daily(AM),As needed, Reported on 06/17/2022 [...] 50 MCG/ACT Nasal Suspension (Flonase) Administer 1 [place] into nostril at bedtime. 16 g 3 05/11/2023 Active documented as of this encounter (statuses as of 05/31/2023) Active Problems Problem Noted Date Diagnosed Date Atherosclerosis of aorta 07/23/2022 Atherosclerosis of coronary artery of [place] heart without angina pectoris 07/23/2022 Anxiety and depression 04/21/2022 Adjustment disorder with mixed anxiety and depre ssed mood 04/21/2022 COPD, group A, by GOLD 2017 classification 10/01 Overview: Per COPD GOLD Classification Anxiety state 04/05/2019 Type 2 diabetes mellitus [...] as of this encounter (statuses as of 05/31/2023) Resolved Problems Problem Noted Date Diagnosed Date Resolved Date Basal cell carcinoma (BCC) o f skin [...] as of this encounter (statuses as of 05/31/2023) Immunizations Name Administration Dates Next Due COVID-19 mRNA, LNP-s, No Pre serve, 2-Dose Series ([employer]) 01/29/2021,06/12/2020,05/15/2020 Pneumococcal Conjugate Vacc, 13 Valent (Prevnar) [...] encounter Miscellaneous Notes * Telephone Encounter - Angela Simms LPN - 05/31/2023 11:[address] Harley, please add new order stating oxygen should go through CPAP instead of choosing nasal canula. * Telephone Encounter - Marija Barrera OSA - 05/31/2023 10:07 AM EDT Gregg from [facility] call in requesting an update on Doctor Cricket answer if he prefer that the O2 goes though the CPAP. Please advice Thank you Scheduling services * Telephone Encounter - Jose Harley MD - 05/27/2023 4:36 PM EST Yes please. Preferably, oxygen should be applied through CPAP machine and not a separate nasal cannula. * Telephone Encounter - Marija Barrera OSA - 05/27/2023 1:30 PM EST Gregg From [facility] call requesting clarification on the O2 Order that Doctor Cricket order for this patient he order a nasal canula, she state that the patient has a CPAP. She would like to know if Doctor Cricket would prefer the oxygen going through the CPAP? Please advice Thank you Scheduling services documented in this encounter Plan of Treatment Upcoming Encounters Date Type Department Care Team (Late st Contact Info) Description 07/30/2023 9:40 AM EDT Office Visit Family Practice [facility] 200 [facility] [place] [address] Roberto Duncan III, MD 200 [facility] [place] [address] 08/04/2023 8:00 AM EDT Office Visit Cardiology, [facility] [address] [place] [address] Ashley Perez CRNP [address] [facility] [place] [address] 11/09/2023 11:00 AM EDT Office Visit Sleep Disorders, [facility] [place] [address] Vidya Wong MD 400 [facility] [place] [id number] Scheduled Procedures Name Priority Associated Diagnoses Date/Ti [...] exists LUNG CANCER SCREENING - USE SMARTSET [id number] Completed 04/12/2023, 04/06/2022, 07/23/2017, Additional history exists [...] filedocumented as of this encounter Care Teams Candle Pourer Relationship Specialty Start Date End Date Dakota PRASAD, Roberto Harkins MD 200 [facility] [place] [address] PCP - General 03/12/01 documented as of this encounter
--- OUTSIDE RECORDS SUMMARY | 2023-08-10 06:19 | External Medical Summary | Summary of Care ---
Author Name Unknown Organization [facility] Address [address] [place] [address] Phone [phone] Care Team Providers Care Sql Application Developer Name Role Phone Dakota PRASAD MD, Roberto Harkins Primary Care Provider [phone] Reason for Visit * Reason Onset Date Comments Advice 05/27/2023 Encounter Details Date Type Department Care Team (Late st Contact Info) Description 05/27/2023 Telephone Access Center, [place] [address] [facility] *DO NOT REMOVE THIS DEPARTMENT* [place] [phone] Services, Scheduling [address] [place] [address] Advice Allergies No known active allergiesdocumented as of this encounter (statuses as of 05/27/2023) Medications Medication Sig Dispensed Refills Start Date End Date Status Meclizine HCl 25 MG Oral Tablet (Antivert) TAKE 1 TABLET BY MOUTH 3 TIMES DAILY NEEDED FOR DIZZINESS. 30 Tablet 0 03/10/2021 Active Fluticasone Propionate 50 MCG/ACT Nasal Suspension (Flonase)Indicatio ns:Chronic frontal sinusitis Administer 2 Sprays into each nostril daily. 16 g 5 03/27/2021 Active Additional Information Patient taking differently:2 [place] Each Nostril Daily(AM),As needed, Reported on 06/17/2022 [...] 50 MCG/ACT Nasal Suspension (Flonase) Administer 1 [place] into nostril at bedtime. 16 g 3 05/11/2023 Active documented as of this encounter (statuses as of 05/27/2023) Active Problems Problem Noted Date Diagnosed Date Atherosclerosis of aorta 07/23/2022 Atherosclerosis of coronary artery of [place] heart without angina pectoris 07/23/2022 Anxiety and [...] as of this encounter (statuses as of 05/27/2023) Resolved Problems Problem Noted Date Diagnosed Date [...] per HTN protocol #16. PURE HYPERCHOLESTEROLEM 01/13/2006 12/1 Overview: Per Lipid Taxonomy. 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 Preferably, oxygen should be applied through CPAP machine and not a separate nasal cannula. * Telephone Encounter - Marija Barrera OSA - 05/27/2023 1:30 PM EST [facility] call requesting clarification on the O2 Order [...] EDT Office Visit Family Practice [facility] [place] [address] [place] [address] Andrew Roberto PRASAD MD [address] [place] [address] 08/04/2023 8:00 AM EDT Office Visit Cardiology, [facility] [address] [place] [address] Ashley Perez CRNP [address] [place] [address] 11/09/2023 11:00 AM EDT Office Visit Sleep Disorders, [facility] [address] [place] [address] Vidya Wong MD 400 [facility] [place] [id number] Scheduled Procedures Name Priority Associated Diagnoses Date/Ti [...] exists LUNG CANCER SCREENING - USE SMARTSET 05882 Completed 04/12/2023, 04/06/2022, 07/23/2017, Additional history exists [...] filedocumented as of this encounter Care Teams Sql Application Developer Relationship Specialty Start Date End Date Roberto Duncan III, MD [address] [place] [address] PCP - General 03/12/01 documented as of this encounter
--- OUTSIDE RECORDS SUMMARY | 2023-08-10 06:19 | External Medical Summary | Summary of Care ---
Author Name Unknown Organization [facility] Address [address] [place] [address] Phone [phone] Care Team Providers Care Criminal Defense Lawyer Name Role Phone Dakota PRASAD MD, Roberto Harkins Primary Care Provider [phone] Reason for Visit * Reason Onset Date Comments Advice 05/27/2023 Encounter Details Date Type Department Care Team (Late st Contact Info) Description 05/27/2023 Telephone Access Center, [place] [address] [facility] *DO NOT REMOVE THIS DEPARTMENT* [place] [phone] Services, Scheduling [address] [place] [address] Advice Allergies No known active allergiesdocumented as [...] 03/27/2021 Active Additional Information Patient taking differently:2 [place] Each Nostril Daily(AM),As needed, Reported on 06/17/2022 [...] 50 MCG/ACT Nasal Suspension (Flonase) Administer 1 [place] into nostril at bedtime. 16 g 3 05/11/2023 Active documented as of this encounter (statuses as of 05/27/2023) Active Problems Problem Noted Date Diagnosed Date Atherosclerosis of aorta 07/23/2022 Atherosclerosis of coronary artery of [place] heart without angina pectoris 07/23/2022 Anxiety [...] mRNA, LNP-s, No Pre serve, 2-Dose Series ([employer]) 01/29/2021,06/12/2020,05/15/2020 Pneumococcal Conjugate Vacc, 13 Valent (Prevnar) [...] encounter Miscellaneous Notes * Telephone Encounter - Marija Barrera OSA - 05/27/2023 1:30 PM EST Gregg From [facility] call requesting clarification on the O2 [...] 9:40 AM EDT [facility] [address] [place] [address] Roberto Duncan III, MD [address] [place] [address] 08/04/2023 8:00 AM EDT Office Visit Cardiology, [facility] [address] [place] [address] Ashley Perez CRNP [address] [place] [address] 11/09/2023 11:00 AM EDT Office Visit Sleep Disorders, [facility] [address] [place] [address] Vidya Wong MD 400 [facility] [place] [address] Scheduled Procedures Name Priority Associated Diagnoses [...] exists LUNG CANCER SCREENING - USE SMARTSET 74424 Completed 04/12/2023, 04/06/2022, 07/23/2017, Additional history exists [...] filedocumented as of this encounter Care Teams Criminal Defense Lawyer Relationship Specialty Start Date End Date Roberto Duncan III, MD 200 [place] [address] PCP - General 03/12/01 documented as of this encounter
--- OUTSIDE RECORDS SUMMARY | 2023-08-10 06:19 | External Medical Summary | Summary of Care ---
Author Name Unknown Organization [facility] Address [address] [place] [address] Phone [phone] Care Team Providers Care Opera Singer Name Role Phone Dakota PRASAD MD, Roberto Harkins Primary Care Provider [phone] Reason for Visit * Reason Onset Date Comments Advice 05/27/2023 Question re: noc turnal oxygen Encounter Details Date Type Department Care Team (Late st Contact Info) Description 05/27/2023 Telephone Access Center, [place] [address] [facility] *DO NOT REMOVE THIS DEPARTMENT* [place] [address] Services, Scheduling [address] [place] [address] Advice (Question re: nocturnal oxygen) Allergies No [...] 03/27/2021 Active Additional Information Patient taking differently:2 [place] Each Nostril Daily(AM),As needed, Reported on 06/17/2022 [...] 50 MCG/ACT Nasal Suspension (Flonase) Administer 1 [place] into nostril at bedtime. 16 g 3 05/11/2023 Active documented as of this encounter (statuses as of 05/31/2023) Active Problems Problem Noted Date Diagnosed Date Atherosclerosis of aorta 07/23/2022 Atherosclerosis of coronary artery of [place] heart without angina pectoris 07/23/2022 Anxiety and [...] mRNA, LNP-s, No Pre serve, 2-Dose Series ([employer]) 01/29/2021,06/12/2020,05/15/2020 Pneumococcal Conjugate Vacc, 13 Valent (Prevnar) [...] as of this encounter Miscellaneous Notes * Addendum Note - Jose Clark MD - 05/31/2023 9:45 PM EDTAddended by: JOSE CLARK on: 05/31/2023 09:45 PM Modules accepted: Orders * Telephone Encounter - Angela Simms LPN - 05/31/2023 11:[address] Clark, please add new order stating oxygen should go through CPAP instead of choosing nasal canula. * Telephone Encounter - Marija Barrera OSA - 05/31/2023 10:07 AM EDT Gregg from [facility] call in requesting an update on Doctor Cricket answer if he prefer that the O2 goes though the CPAP. Please advice Thank you Scheduling services * Telephone Encounter - Jose Clark MD - 05/27/2023 4:36 PM EST Yes please. Preferably, oxygen should be applied through CPAP machine and not a separate nasal cannula. * Telephone Encounter - Marija Barrera OSA - 05/27/2023 1:30 PM EST Gregg From [facility] call requesting clarification on the O2 [...] 9:40 AM EDT Office Visit Family Practice [facility] 200 [facility] [place] [address] Roberto Duncan III, MD 200 [place] [address] 08/04/2023 8:00 AM EDT Office Visit Cardiology, [facility] [address] [place] [address] Ashley Perez CRNP [address] [place] [address] 11/09/2023 11:00 AM EDT Office Visit Sleep Disorders, [address] [place] [address] Vidya Wong MD [address] [place] [facility] [place] [address] Scheduled Procedures Name Priority Associated Diagnoses [...] exists LUNG CANCER SCREENING - USE SMARTSET 608[address] Completed 04/12/2023, 04/06/2022, 07/23/2017, Additional history exists [...] as of this encounter Visit Diagnoses Diagnosis Chronic respiratory failure with hypoxia (HCC)- Primary Chronic respiratory failure documented in this encounter Care Teams Opera Singer Relationship Specialty Start Date End Date Roberto Duncan III, MD [address] [place] [address] PCP - General 03/12/01 documented as of this encounter
--- OUTSIDE RECORDS SUMMARY | 2023-08-10 06:19 | External Medical Summary | Summary of Care ---
Author Name Unknown Organization [facility] Address [address] [place] [address] Phone [phone] Care Team Providers Care Boarder Hand Name Role Phone Dakota PRASAD MD, Roberto Harkins Primary Care Provider [phone] Reason for Visit * Reason Onset Date Comments Appointment 06/07/2023 Encounter Details Date Type Department Care Team (Late st Contact Info) Description 06/07/2023 Telephone Interventional Pain Center, [facility] [address] [place], [place] [phone] Leonard Cleveland CRNP [address] [place], [place] [phone] Appointment Allergies No known active allergiesdocumented as of this encounter (statuses as of 06/07/2023) Medications Medication Sig Dispensed Refills Start Date End Date Status Meclizine HCl 25 MG Oral Tablet (Antivert) TAKE 1 TABLET BY MOUTH 3 TIMES DAILY NEEDED FOR DIZZINESS. 30 Tablet 0 03/10/2021 Active Fluticasone Propionate 50 MCG/ACT Nasal Suspension (Flonase)Indicatio ns:Chronic frontal sinusitis Administer 2 Sprays into each nostril daily. 16 g 5 03/27/2021 Active Additional Information Patient taking differently:2 [place] Each Nostril Daily(AM),As needed, Reported on 06/17/2022 [...] 50 MCG/ACT Nasal Suspension (Flonase) Administer 1 [place] into nostril at bedtime. 16 g 3 05/11/2023 Active documented as of this encounter (statuses as of 06/07/2023) Active Problems Problem Noted Date Diagnosed Date COPD, group B, by GOLD 2017 classification 05/30 Overview: Per COPD GOLD Classification Atherosclerosis of aorta 07/23/2022 Atherosclerosis of coronary artery of [place] heart without angina pectoris 07/23/2022 Anxiety and [...] as of this encounter (statuses as of 06/07/2023) Resolved Problems Problem Noted Date Diagnosed Date [...] as of this encounter (statuses as of 06/07/2023) Immunizations Name Administration Dates Next Due COVID-19 mRNA, LNP-s, No Pre serve, 2-Dose Series ([employer]) 01/29/2021,06/12/2020,05/15/2020 Pneumococcal Conjugate Vacc, 13 Valent [...] Telephone Encounter - Betty Monte OSA - 06/07/2023 9:49 AM EDT Pt returned call. Procedure krissy'd for 06-14-23 at 1:00pm. Pt accepted appt. * Telephone Encounter - Betty Monte OSA - 06/07/2023 9:33 AM EDT Call to pt. LM for pt to return call. * Telephone Encounter - Ariana Silva OSA - 06/07/2023 9:15 AM EDT Patient called to schedule procedure with ALOK Cee at [facility] Transfer attempt onsite not successful Please call to assist when possible [phone] documented in this encounter Plan of Treatment Upcoming Encounters Date Type Department Care Team (Late st Contact Info) Description 06/14/2023 1:00 PM EDT Office Visit Interventional Pain Center, [facility] [address] [facility] [place] [address] Leonard Cleveland CRNP 400 [place] [address] 07/30/2023 9:40 AM EDT Office Visit Family Practice [facility] 200 [facility] [place] [address] Roberto Duncan III, MD 200 [facility] [place] [address] 08/17/2023 9:30 AM EDT Office Visit Cardiology, [facility] [address] [place] [address] Ashley Perez CRNP [address] [place] [address] 11/09/2023 11:00 AM EDT Office Visit [address] Disorders, [address] [place] [address] Vidya Wong MD 400 [facility] [place] [address] Scheduled Procedures Name Priority Associated Diagnoses Date/Ti [...] exists LUNG CANCER SCREENING - USE SMARTSET 31220 Completed 04/12/2023, 04/06/2022, 07/23/2017, Additional history exists [...] filedocumented as of this encounter Care Teams Boarder Hand Relationship Specialty Start Date End Date Dakota PRASAD, Roberto Harkins MD 200 [place] [address] PCP - General 03/12/01 documented as of this encounter
--- OUTSIDE RECORDS SUMMARY | 2023-08-10 06:19 | External Medical Summary | Summary of Care ---
Author Name Unknown Organization [facility] Address [address] [place] [address] Phone [phone] Care Team Providers Care Traffic Assistant Name Role Phone Dakota PRASAD MD, Roberto Harkins Primary Care Provider [phone] Reason for Visit * Reason Onset Date Comments Oxygen Assessment 05/26/2023 NPO Encounter Details Date Type Department Care Team (Late st Contact Info) Description 05/26/2023 Telephone Pulmonary Medicine, [facility] 132 [facility] [place] [address] Jose Harley MD [address] [facility] [place] [phone] Oxygen Assessment (NPO) Allergies No known active allergiesdocumented as of [...] 03/27/2021 Active Additional Information Patient taking differently:2 [place] Each Nostril Daily(AM),As needed, Reported on 06/17/2022 [...] (Glucophage XR)Indications:DM type 2 nursing care encounter ([facility]) TAKE THREE TABLETS BY MOUTH EVERY DAY [...] 50 MCG/ACT Nasal Suspension (Flonase) Administer 1 [place] into nostril at bedtime. 16 g 3 05/11/2023 Active documented as of this encounter (statuses as of 05/27/2023) Active Problems Problem Noted Date Diagnosed Date Atherosclerosis of aorta 07/23/2022 Atherosclerosis of coronary artery of [place] heart without angina pectoris 07/23/2022 Anxiety and [...] mRNA, LNP-s, No Pre serve, 2-Dose Series ([employer]) 01/29/2021,06/12/2020,05/15/2020 Pneumococcal Conjugate Vacc, 13 Valent (Prevnar) [...] encounter Miscellaneous Notes * Telephone Encounter - Jennifer Lal LPN - 05/27/2023 1:26 PM EST Pt aware via my Qriously message of results. Order for O2 has been submitted to * Telephone Encounter - Jose Harley MD - 05/27/2023 11:26 AM EST Your recent nocturnal pulse oximetry study showed episodes of significant drops in oxygen levels through the night. We would recommend use of oxygen therapy while sleeping at night. Prescription will be submitted to a [employer], who will be contacting you for set up home oxygen for nighttime use. Please contact the office with any additional questions. Sincerely Dr. Harley * Telephone Encounter - Jennifer Lal LPN - 05/26/2023 3:30 PM EST NPO report has been scanned into the chart. Please review and advise documented in this encounter Plan of Treatment Upcoming Encounters Date Type Department Care Team (Late st Contact Info) Description 07/30/2023 9:40 AM EDT Office Visit Family Practice [facility] 200 [facility] [place] [address] Roberto Duncan III, MD 200 [facility] [place] [address] 08/04/2023 8:00 AM EDT Office Visit Cardiology, [facility] [address] [place] [address] Ashley Perez CRNP [address] [place] [address] 11/09/2023 11:00 AM EDT Office Visit Sleep Disorders, [facility] 400 [facility] [place] [address] Vidya Wong MD 400 [place] [address] Scheduled Procedures Name Priority Associated [...] 05/13/2023, 050 03/2022, 09/03/2021, Additional history exists DTaP,Tdap,and Td Vaccines (3 - Td or Tdap) 01/21/2032 01/20/2022, 07/30/2008 Pneumococcal Vaccine: 65+ Years Completed 10/05/2016, 03/29/2014, 04/22/2009 Zoster Vaccines Completed 01/09/2022, 10/22/2021 Colonoscopy Discontinued 07/15/2022, 06/21, 02/02/2012, Additional history exists Colorectal Cancer Screening Discontinued Influenza Vaccine (FLU shot) Completed 01/29/2023, 12/01/2021, 12/27/2020, Additional history exists LUNG CANCER SCREENING - USE SMARTSET [id number] Completed 04/12/2023, 04/06/2022, 07/23/2017, Additional history exists [...] failure documented in this encounter Care Teams Traffic Assistant Relationship Specialty Start Date End Date Roberto Duncan III, MD [address] [place] [address] PCP - General 03/12/01 documented as of this encounter
--- OUTSIDE RECORDS SUMMARY | 2023-08-10 06:19 | External Medical Summary | Summary of Care ---
Author Name Unknown Organization [facility] Address [address] [place] [address] Phone [phone] Care Team Providers Care Drug Abuse Resistance Education Officer Name Role Phone Dakota PRASAD MD, Roberto Harkins Primary Care Provider [phone] Reason for Visit * Reason Onset Date Comments Oxygen Assessment 05/26/2023 NPO Encounter Details Date Type Department Care Team (Late st Contact Info) Description 05/26/2023 Telephone Pulmonary Medicine, [facility] 132 [facility] [place] [address] Jose Harley MD [address] [facility] [place] [phone] Oxygen Assessment (NPO) Allergies No known active allergiesdocumented as of this encounter (statuses as of 06/11/2023) Medications Medication Sig Dispensed Refills Start Date End Date Status Meclizine HCl 25 MG Oral Tablet (Antivert) TAKE 1 TABLET BY MOUTH 3 TIMES DAILY NEEDED FOR DIZZINESS. 30 Tablet 0 03/10/2021 Active Fluticasone Propionate 50 MCG/ACT Nasal Suspension (Flonase)Indicatio ns:Chronic frontal sinusitis Administer 2 Sprays into each nostril daily. 16 g 5 03/27/2021 Active Additional Information Patient taking differently:2 [place] Each Nostril Daily(AM),As needed, Reported on 06/17/2022 [...] XR)Indications:DM type 2 nursing care encounter ([facility]) TAKE THREE TABLETS BY MOUTH EVERY [...] 50 MCG/ACT Nasal Suspension (Flonase) Administer 1 [place] into nostril at bedtime. 16 g 3 05/11/2023 Active documented as of this encounter (statuses as of 06/11/2023) Active Problems Problem Noted Date Diagnosed Date Atherosclerosis of aorta 07/23/2022 Atherosclerosis of coronary artery of [place] heart without angina pectoris 07/23/2022 Anxiety and [...] as of this encounter (statuses as of 06/11/2023) Resolved Problems Problem Noted Date Diagnosed Date [...] as of this encounter (statuses as of 06/11/2023) Immunizations Name Administration Dates Next Due COVID-19 [...] 1:26 PM EST Pt aware via my [employer] message of results. Order for O2 has been submitted to * Telephone Encounter - Jose Harley MD - 05/27/2023 11:26 AM EST Your recent nocturnal pulse oximetry study showed episodes of significant drops in oxygen levels through the night. We would recommend use of oxygen therapy while sleeping at night. Prescription will be submitted to a [employer], who will be contacting you for set [...] PM EDT Office Visit Interventional Pain Center, [facility] 400 [facility] [place] [address] Leonard Cleveland CRNP 400 [place] [address] 07/30/2023 9:40 AM EDT Office Visit Family Practice [facility] 200 [facility] [place] [address] Roberto Duncan III, MD 200 [place] [address] 08/17/2023 9:30 AM EDT Office Visit Cardiology, [facility] [address] [place] [address] Ashley Perez CRNP [address] [facility] [address] 11/09/2023 11:00 AM EDT Office Visit Sleep Disorders, [address] [place] [address] Vidya Wong MD 400 [place] [address] Scheduled Procedures Name Priority Associated Diagnoses Date/Ti [...] exists LUNG CANCER SCREENING - USE SMARTSET 56860 Completed 04/12/2023, 04/06/2022, 07/23/2017, Additional history exists [...] failure documented in this encounter Care Teams Drug Abuse Resistance Education Officer Relationship Specialty Start Date End Date Roberto Duncan III, MD 200 [place] [address] PCP - General 03/12/01 documented as of this encounter
--- OUTSIDE RECORDS SUMMARY | 2023-08-10 06:19 | External Medical Summary | Summary of Care ---
Author Name Unknown Organization [facility] Address [address] [place] [address] Phone [phone] Care Team Providers Care Rubber Chemist Name Role Phone Dakota PRASAD MD, Roberto Harkins Primary Care Provider [phone] Reason for Visit * Reason Onset Date Comments Advice 05/27/2023 Encounter Details Date Type Department Care Team (Late st Contact Info) Description 05/27/2023 Telephone Access Center, [place] [address] [facility] *DO NOT REMOVE THIS DEPARTMENT* [place] [phone] Services, Scheduling [address] [place] [address] Advice Allergies No known active allergiesdocumented as [...] 03/27/2021 Active Additional Information Patient taking differently:2 [place] Each Nostril Daily(AM),As needed, Reported on 06/17/2022 [...] 50 MCG/ACT Nasal Suspension (Flonase) Administer 1 [place] into nostril at bedtime. 16 g 3 05/11/2023 Active documented as of this encounter (statuses as of 05/27/2023) Active Problems Problem Noted Date Diagnosed Date Atherosclerosis of aorta 07/23/2022 Atherosclerosis of coronary artery of [place] heart without angina pectoris 07/23/2022 Anxiety and [...] mRNA, LNP-s, No Pre serve, 2-Dose Series ([employer]) 01/29/2021,06/12/2020,05/15/2020 Pneumococcal Conjugate Vacc, 13 Valent (Prevnar) [...] - 05/27/2023 1:30 PM EST Gregg From [facility] call requesting clarification on the [...] 9:40 AM EDT Office Visit [facility] [address] [place] [address] Roberto Duncan III, MD [address] [place] [address] 08/04/2023 8:00 AM EDT Office Visit Cardiology, [facility] [address] [place] [address] Ashley Perez CRNP [address] [place] [address] 11/09/2023 11:00 AM EDT Office Visit Sleep Disorders, [facility] [address] [place] [address] Vidya Wong MD 400 [facility] [place] [address] Scheduled Procedures Name Priority Associated Diagnoses [...] exists LUNG CANCER SCREENING - USE SMARTSET [id number] Completed 04/12/2023, 04/06/2022, 07/23/2017, Additional history exists [...] filedocumented as of this encounter Care Teams Rubber Chemist Relationship Specialty Start Date End Date Roberto Duncan III, MD 200 [facility] [place] [address] PCP - General 03/12/01 documented as of this encounter
--- OUTSIDE RECORDS SUMMARY | 2023-08-10 06:19 | External Medical Summary | Summary of Care ---
Author Name Unknown Organization [facility] Address [address] [place] [address] Phone [phone] Care Team Providers Care Wing Mailer Machine Operator Name Role Phone Dakota PRASAD MD, Roberto Harkins Primary Care Provider [phone] Reason for Visit * Reason Onset Date Comments Advice 05/27/2023 Encounter Details Date Type Department Care Team (Late st Contact Info) Description 05/27/2023 Telephone Access Center, [place] [address] [facility] *DO NOT REMOVE THIS DEPARTMENT* [place] [phone] Services, Scheduling [address] [place] [address] Advice Allergies No known active allergiesdocumented as [...] 03/27/2021 Active Additional Information Patient taking differently:2 [place] Each Nostril Daily(AM),As needed, Reported on 06/17/2022 [...] 50 MCG/ACT Nasal Suspension (Flonase) Administer 1 [place] into nostril at bedtime. 16 g 3 05/11/2023 Active documented as of this encounter (statuses as of 05/31/2023) Active Problems Problem Noted Date Diagnosed Date Atherosclerosis of aorta 07/23/2022 Atherosclerosis of coronary artery of nikolai heart without angina pectoris 07/23/2022 Anxiety and [...] mRNA, LNP-s, No Pre serve, 2-Dose Series (Tailored) 01/29/2021,06/12/2020,05/15/2020 Pneumococcal Conjugate Vacc, 13 Valent (Prevnar) [...] - 05/31/2023 10:07 AM EDT Gregg from [facility] call in requesting an update on Doctor Harley answer if he prefer that the O2 goes though the CPAP. Please advice Thank you Scheduling services * Telephone Encounter - Jose Harley MD - 05/27/2023 4:36 PM EST Yes please. Preferably, oxygen should be applied through CPAP machine and not a separate nasal cannula. * Telephone Encounter - Marija Barrera OSA - 05/27/2023 1:30 PM EST Gregg From [facility] call requesting clarification on the O2 Order [...] 9:40 AM EDT Office Visit Family Practice [facility] [address] [facility] [place] [address] Roberto Duncan III, MD [address] [facility] [place] [address] 08/04/2023 8:00 AM EDT Office Visit Cardiology, [facility] [address] [place] [address] Ashley Perez CRNP [address] [place] [address] 11/09/2023 11:00 AM EDT Office Visit Sleep Disorders, [facility] [address] [place] [address] Vidya Wong MD [address] [place] [address] Scheduled Procedures Name Priority Associated [...] exists LUNG CANCER SCREENING - USE SMARTSET 17869 Completed 04/12/2023, 04/06/2022, 07/23/2017, Additional history exists [...] filedocumented as of this encounter Care Teams Wing Mailer Machine Operator Relationship Specialty Start Date End Date Dakota PRASAD, Roberto Harkins MD [address] [place] [address] PCP - General 03/12/01 documented as of this encounter
--- OUTSIDE RECORDS SUMMARY | 2023-08-10 06:19 | External Medical Summary | Summary of Care ---
Author Name Unknown Organization [facility] Address [address] [place] [address] Phone [phone] Care Team Providers Care Case Repairer Name Role Phone Dakota PRASAD MD, Roberto Harkins Primary Care Provider [phone] Reason for Visit * Reason Comments Follow Up Encounter Details Date Type Department Care Team (Late st Contact Info) Description 05/13/2023 10:40 AM EST Office Visit Pulmonary Medicine, [facility] [address] [facility] [place] [address] Jose Harley MD [address] [facility] [place] [address] COPD, moderate ([facility])* Allergies No known active allergiesdocumented as of this encounter (statuses as of 05/13/2023) Medications Medication Sig Dispensed Refills Start Date End Date Status Meclizine HCl 25 MG Oral Tablet (Antivert) TAKE 1 TABLET BY MOUTH 3 TIMES DAILY NEEDED FOR DIZZINESS. 30 Tablet 0 03/10/2021 Active Fluticasone Propionate 50 MCG/ACT Nasal Suspension (Flonase)Indicatio ns:Chronic frontal sinusitis Administer 2 Sprays into each nostril daily. 16 g 5 03/27/2021 Active Additional Information Patient taking differently:2 [place] Each Nostril Daily(AM),As needed, Reported on 06/17/2022 [...] (Glucophage XR)Indications:DM type 2 nursing care encounter ([facility]) TAKE THREE TABLETS BY MOUTH EVERY DAY [...] the morning. 90 Capsule 3 05/07/2023 Active Mupirocin 2 % External Ointment (Bactroban)Indicat ions:Ingrown toenail of left foot Apply topically to affected area 3 times a day for 14 days. 22 g 1 2023 Active Fluticasone Propionate 50 MCG/ACT Nasal Suspension (Flonase) Administer 1 [place] into nostril at bedtime. 16 g 3 05/11/2023 Active documented as of this encounter (statuses as of 05/13/2023) Active Problems Problem Noted Date Diagnosed Date Atherosclerosis of aorta 07/23/2022 Atherosclerosis of coronary artery of [place] heart without angina pectoris 07/23/2022 Anxiety and [...] as of this encounter (statuses as of 05/13/2023) Resolved Problems Problem Noted Date Diagnosed Date [...] as of this encounter (statuses as of 05/13/2023) Immunizations Name Administration Dates Next Due COVID-19 mRNA, LNP-s, No Pre serve, 2-Dose Series ([employer]) 01/29/2021,06/12/2020,05/15/2020 Pneumococcal Conjugate Vacc, 13 Valent (Prevnar) [...] money to buy more. Never true 01/15/20 Within the past 12 months, t he [...] Sign Reading Time Taken Comments Blood Pressure 132/88 05/13/2023 10:08 AM EST Pulse 82 05/13/2023 10:08 AM EST Temperature 36 C (96.8 F) 05/13/2023 10:08 AM EST Respiratory Rate 20 05/13/2023 10:08 AM EST Oxygen Saturation 95% 05/13/2023 10:09 AM EST ra, amb Inhaled Oxygen Concentration - - Weight 99.2 kg (218 lb 12 oz) 05/13/2023 10:08 A M EST Height 182.9 cm (6') 05/13/2023 10:08 AM EST Body Mass Index 29.67 05/13/2023 10:08 AM EST documented in this encounter Progress Notes * Jose Harley MD - 05/13/2023 10:43 AM EST 05/13/2023 Pulmonary Medicine, [facility] [address] [place] [id number] Dickson Diamond 1950 male 73 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 Patient describes episodic wheezing, chest tightness, using Trelegy inhaler and rescue albuterol. Current exercise distance 1 block and 1 flight of stairs. Denies expectoration, hemoptysis or recent changes in weight or appetite. Denies lower extremity edema. Recently resumed CPAP therapy, sleeps propped up, describes occasional need to use rescue inhaler at night. Current bronchodilator regimen includes Trelegy, rescue albuterol and Flonase. Current lisinopril antihypertensive therapy noted. Physical examination significant for class 3 throat, adequate air entry with scattered rhonchi, basilar coarse wheezing, no dullness, regular cardiac rhythm, no evidence of volume overload and nonlateralizing Neuro examination. Low-dose CT scan chest 04/12/2023 showed scattered subcentimeter stable pulmonary nodules without change. Continued LDCT protocol recommended. Pulmonary function testing May 2021 showed normal ventilatory pattern. We would recommend continue with current bronchodilator regimen. Nocturnal oximetry on room air is recommended to rule out nocturnal hypoxia. Importance of compliance with CPAP therapy was discussed. 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 Interm History/Respiratory Symptoms Cough: occasional, typically dry Hemoptysis: no Sinus Symptoms: congestion Hospitalizations: no ED Trips: no Triggers: exertion Nocturnal: occasional sob, occasional cough; sleeps with head elevated on wedge (recently started this) CPAP/BiPAP/O2: CPAP-recently started Flu Vaccine: 2022 Pneumovax: 2017 Prevnar: 2015 COVID 19: x 3 Mmrc Cat Question 05/13/2023 10:15 AM EST - Filed by Angela Simms LPN When do you become breathless? (3) I stop for breath after walking about 100 yards or after a few minutes on level ground How frequently do you cough? (2) Do you have phlegm in your chest? (0) - I have no phlegm (mucus) in my chest Is your chest tight? (3) How breathless do you become when walking up a hill or steps? (4) How limited are you doing activities at home? (5) - I am very limited doing activities at home How confident are you leaving home with your lung condition? (0) - I am confident leaving my home despite my condition How soundly do you sleep? (1) How much energy do you have? (3) Total MMRC Score (range: 0 - 4) 3 Total CAT Score (range: 0 - 40) 18 Objective Filed Vitals: 05/13/23 1008 05/13/23 1009 BP: 132/88 Pulse: 82 Resp: 20 Temp: 36 C (96.8 F) TempSrc: Tympanic SpO2: 96% 95% Weight: 99.2 kg (218 lb 12 oz) Height: 1.829 m (6') Exam: Const: No signs of acute distress present. Head/Face: Normal on inspection. Eyes: Conjunctivae clear. Pupils equal round and reactive to light. ENMT: Oropharynx: No erythema, exudate or masses. Posterior pharynx is normal. Neck: Supple and symmetric. Resp: Respiratory examination as outlined above CV: Rate is regular. Rhythm is regular. No heart murmur appreciated. Extremities: No edema of the lower limbs bilaterally. Skin: Skin is warm and dry. Neuro: Coordination normal. No involuntary movement. Psych: Patient's attitude is cooperative. Mood is normal. Affect is normal. Tests reviewed with the patient: CT CHEST LOW DOSE SCAN LUNG CANCER SCREEN 1 YEAR FOLLOW UP Result Date: 04/12/2023 IMPRESSION: 1. LungRADS Category 2: Negative, benign appearance or behavior. 2. LungRADS Category S: Negative. No new/unknown potentially significant incidental findings requiring additional evaluation. 3. Incidental findings as above. RECOMMENDATIONS: Next exam to be arranged by the Lung Cancer Screening Program. Available Radiologic data was reviewed by me in PACS. The images were shown to the patient and findings were discussed with the patient. HOME MEDICATIONS: Fluticasone Propionate 50 MCG/ACT Nasal Suspension (Flonase) Mupirocin 2 % External Ointment (Bactroban) hydroCHLOROthiazide 12.5 MG Oral Capsule (Hydrodiuril) Albuterol Sulfate HFA 108 (90 Base) MCG/ACT Inhalation Aerosol Solution Trelegy Ellipta 100-62.5-25 MCG/ACT Aerosol Powder Breath Activated (Zwplbkiabpo-Nsfpmfjefnmt-Guuggmipgx) amLODIPine Besylate 5 MG Oral Tablet (Norvasc) hydrOXYzine HCl 10 MG Oral Tablet (Atarax) Atorvastatin Calcium 80 MG Oral Tablet (Lipitor) Furosemide 20 MG Oral Tablet (Lasix) Lisinopril 40 MG Oral Tablet metFORMIN HCl ER 500 MG Oral Tablet Extended Release 24 Hour (Glucophage XR) Naproxen 500 MG Oral Tablet (Naprosyn) rOPINIRole HCl 2 MG Oral Tablet (Requip) Tamsulosin HCl 0.4 MG Oral Capsule (Flomax) Fluticasone Propionate 50 MCG/ACT Nasal Suspension (Flonase) Meclizine HCl 25 MG Oral Tablet (Antivert) ROS: No reported history of Hemoptysis, Hematemesis, Melena No reported history of Dysuria, Hematuria, Flank Pain No reported history of chronic headache, seizures No reported history of Fall or trauma . No reported history of recent change in weight or appetite. Past Medical History: Diagnosis Date Benign neoplasm of colon 02/02/2012 COLONOSCOPY FLEXIBLE PROXIMAL DIAGNOSTIC performed by Patricia Sanders DO at ENDOSCOPY [facility],HYPERPLASTIC POLYPS REPEAT COLONOSCOPY IN 10 YEARS COPD (chronic obstructive pulmonary disease) (HCC) Diabetic eye exam ([facility]) 05/05/2011 [facility], no retinopathy Diabetic eye exam ([facility]) 05/11/2013 no retinopathy GERD (gastroesophageal reflux disease) ANNEL (obstructive sleep apnea) Past Surgical History: Procedure Laterality Date C-/T-SPINE PARAVERTEBRAL FACET INJ, 1 LEVEL Right 12/01/2021 C-/T-SPINE PARAVERTEBRAL FACET INJ, 1 LEVEL performed by Shalonda Whittaker MD at OR [facility] C-/T-SPINE PARAVERTEBRAL FACET INJ,2 LEVELS Right 12/01/2021 C-/T-SPINE PARAVERTEBRAL FACET INJ, 2 LEVELS performed by Shalonda Whittaker MD at OR [facility] C-/T-SPINE PARAVERTEBRAL FACET INJ,3 LEVELS Right 12/01/2021 C-/T-SPINE PARAVERTEBRAL FACET INJ, 3 OR MORE LEVELS performed by Shalonda Whittaker MD at OR [facility] COLONOSCOPY, DIAGNOSTIC (RECTUM) 02/02/2012 COLONOSCOPY FLEXIBLE PROXIMAL DIAGNOSTIC performed by Patricia Sanders DO at ENDOSCOPY [facility],HYPERPLASTIC POLYPS REPEAT COLONOSCOPY IN 10 YEARS COLONOSCOPY, DIAGNOSTIC (RECTUM) 07/15/2022 diverticulosis in sigmoid colon / no specimens collected / recall 5 to 10 years/ COLONOSCOPY FLEXIBLE PROXIMAL DIAGNOSTIC performed by Patricia Sanders DO at ENDOSCOPY [facility] COLORECTAL CANCER SCREEN; COLON 01/31/2002 sigmoid diverticulosis, normal-Dr. Alcaraz INFORMATION 01/23/1992 cyst excision PROSTATE BIOPSY 01/24/2018 done in office, Dr Donnelly Social History Socioeconomic History Marital status: Tobacco Use Smoking status: Former Current packs/day: 0.00 Average packs/day: 1 pack/day for 52.1 years (52.1 ttl pk-yrs) Types: Cigarettes Start date: 1966 Quit date: 05/06/2016 Years since quittin.0 Smokeless tobacco: Never Vaping Use Vaping Use: Never used Substance and Sexual Activity Alcohol use: Yes Comment: 1/daily Drug use: No Social Determinants of Health Food Insecurity: No Food Insecurity (01/14/2022) Hunger Vital Sign Worried About Running Out of Food in the Last Year: Never true Ran Out of Food in the Last Year: Never true Family History Problem Relation Age of Onset Blood Disorder Mother CLOT Diabetes Father Heart Disorder Father CHF @82 Diabetes Sister Heart Disorder Brother NM 73 Heart Disorder Brother CABG Review of patient's allergies indicates: No Known Allergies documented in this encounter Nursing Notes * Angela Simms LPN - 05/13/2023 10:02 AM EST Pt for f/u COPD and TAMEZ. Interm History/Respiratory Symptoms Cough: occasional, typically dry Hemoptysis: no Sinus Symptoms: congestion Hospitalizations: no ED Trips: no Triggers: exertion Nocturnal: occasional sob, occasional cough; sleeps with head elevated on wedge (recently started this) CPAP/BiPAP/O2: CPAP-recently started Flu Vaccine: 2022 Pneumovax: 2017 Prevnar: 2015 COVID 19: x 3 [facility] Cat Question 05/13/2023 10:15 AM EST - Filed by Angela Simms LPN When do you become breathless? (3) I stop for breath after walking about 100 yards or after a few minutes on level ground How frequently do you cough? (2) Do you have phlegm in your chest? (0) - I have no phlegm (mucus) in my chest Is your chest tight? (3) How breathless do you become when walking up a hill or steps? (4) How limited are you doing activities at home? (5) - I am very limited doing activities at home How confident are you leaving home with your lung condition? (0) - I am confident leaving my home despite my condition How soundly do you sleep? (1) How much energy do you have? (3) Total MMRC Score (range: 0 - 4) 3 Total CAT Score (range: 0 - 40) 18 documented in this encounter Plan of Treatment Upcoming Encounters Date Type Department Care Team (Late st Contact Info) Description 05/18/2023 1:00 PM EST Office Visit Podiatry [facility] [address] [place] [address] Ese Jin DPM [address] [place] [address] 07/30/2023 9:40 AM EDT Office Visit [facility] [address] [place] [address] Roberto Duncan III, MD [address] [place] [address] 08/04/2023 8:00 AM EDT Office Visit Cardiology, [facility] [address] [facility] [place] [address] Ashley Perez CRNP [address] [facility] [place] [address] 11/09/2023 11:00 AM EDT Office Visit Sleep Disorders, [facility] [address] [place] [address] Vidya Wong MD [address] [place] [address] Scheduled Orders Name Type Priority Associated Diagnoses Orde r Schedule NOCTURNAL HOME OXIMETRY (OP) Procedures Routine COPD, moderate (HCC) Ordered: 05/13/2023 Scheduled Procedures Name Priority Associated Diagnoses Date/Ti [...] exists LUNG CANCER SCREENING - USE SMARTSET 33269 Completed 04/12/2023, 04/06/2022, 07/23/2017, Additional history exists [...] as of this encounter Visit Diagnoses Diagnosis COPD, moderate (HCC)- Primary Chronic airway obstruction, not elsewhere classified documented in this encounter Care Teams Case Repairer Relationship Specialty Start Date End Date Roberto Duncan III, MD [address] [place] [address] PCP - General 03/12/01 documented as of this encounter"
--- OUTSIDE RECORDS SUMMARY | 2023-08-10 06:19 | External Medical Summary | Summary of Care ---
Author Name Unknown Organization [facility] Address [address] [place] [address] Phone [phone] Care Team Providers Care Evening Sitter Name Role Phone Dakota PRASAD MD, Roberto Harkins Primary Care Provider [phone] Reason for Visit * Reason Comments NEW PATIENT L first toenail * Evaluate & Treat - Unlimited Visits (Within 10 days (routine)) - Authorized Specialty Diagnoses / Procedures Referred By Caren schroeder Referred To Contact Podiatry Diagnoses Ingrown toenail of left foot Margarette Goodman MD [address] [place] [address] Referral ID Status Reason Start Date Expiration Date Visits Requested Visits Authorized [id number] Authorized Specialty Services Required 2023 [id number] Encounter Details Date Type Department Care Team (Late st Contact Info) Description 05/18/2023 1:00 PM EST Office Visit Podiatry [facility] [address] [place] [address] Ese Jin DPM [address] [place] [address] Ingrowing nail, left great toe*; Pain in toe of left foot; Ingrown toenail of left foot [L60.0] Allergies No known active allergiesdocumented as of this encounter (statuses as of 05/18/2023) Medications Medication Sig Dispensed Refills Start Date End Date Status Meclizine HCl 25 MG Oral Tablet (Antivert) TAKE 1 TABLET BY MOUTH 3 TIMES DAILY NEEDED FOR DIZZINESS. 30 Tablet 0 03/10/2021 Active Fluticasone Propionate 50 MCG/ACT Nasal Suspension (Flonase)Indicatio ns:Chronic frontal sinusitis Administer 2 Sprays into each nostril daily. 16 g 5 03/27/2021 Active Additional Information Patient taking differently:2 [place] Each Nostril Daily(AM),As needed, Reported on 06/17/2022 [...] 50 MCG/ACT Nasal Suspension (Flonase) Administer 1 [place] into nostril at bedtime. 16 g 3 05/11/2023 Active documented as of this encounter (statuses as of 05/18/2023) Active Problems Problem Noted Date Diagnosed Date Atherosclerosis of aorta 07/23/2022 Atherosclerosis of coronary artery of [place] heart without angina pectoris 07/23/2022 Anxiety and [...] as of this encounter (statuses as of 05/18/2023) Resolved Problems Problem Noted Date Diagnosed Date [...] as of this encounter (statuses as of 05/18/2023) Immunizations Name Administration Dates Next Due COVID-19 mRNA, LNP-s, No Pre serve, 2-Dose Series (Sproutkin) 01/29/2021,06/12/2020,05/15/2020 Pneumococcal Conjugate Vacc, 13 Valent (Prevnar) [...] on file documented as of this encounter Progress Notes * Ese Jin, SHAUNA - 05/18/2023 12:56 PM EST Podiatry New Patient [facility] Name: Dickson PETERSN: [id number] : 1950 Date: 05/18/2023 CHIEF COMPLAINT: Ingrowing nail, left great toenail HISTORY OF PRESENT ILLNESS: This patient is a 73 year old male who presents today with complaints of an ingrowing nail, left great toe. Pt states he can usually get the corner himself, however, has been unable to. He states he has pain at the end of his toe. Tried to trim this, but was unsuccessful. Denies any other complaints. Past Medical History: Diagnosis Date Benign neoplasm of colon 02/02/2012 COLONOSCOPY FLEXIBLE PROXIMAL DIAGNOSTIC performed by Patricia Sanders DO at ENDOSCOPY [facility],HYPERPLASTIC POLYPS REPEAT COLONOSCOPY IN 10 YEARS COPD (chronic obstructive pulmonary disease) (FORMERLY [facility]) Diabetic eye exam (FORMERLY [facility]) 05/05/2011 [facility], no retinopathy Diabetic eye exam (FORMERLY [facility]) 05/11/2013 no retinopathy GERD (gastroesophageal reflux disease) ANNEL (obstructive sleep apnea) Past Surgical History: Procedure Laterality Date C-/T-SPINE PARAVERTEBRAL FACET INJ, 1 LEVEL Right 12/01/2021 C-/T-SPINE PARAVERTEBRAL FACET INJ, 1 LEVEL performed by Shalonda Whittaker MD at OR [facility] C-/T-SPINE PARAVERTEBRAL FACET INJ,2 LEVELS Right 12/01/2021 C-/T-SPINE PARAVERTEBRAL FACET INJ, 2 LEVELS performed by Shalonda Whittaker MD at OR [facility] C-/T-SPINE PARAVERTEBRAL FACET INJ,3 LEVELS Right 12/01/2021 C-/T-SPINE PARAVERTEBRAL FACET INJ, 3 OR MORE LEVELS performed by Shalonda Whittaker MD at OR [facility] COLONOSCOPY, DIAGNOSTIC (RECTUM) 02/02/2012 COLONOSCOPY FLEXIBLE PROXIMAL DIAGNOSTIC performed by Patricia Sanders DO at ENDOSCOPY [facility],HYPERPLASTIC POLYPS REPEAT COLONOSCOPY IN 10 YEARS COLONOSCOPY, DIAGNOSTIC (RECTUM) 07/15/2022 diverticulosis in sigmoid colon / no specimens collected / recall 5 to 10 years/ COLONOSCOPY FLEXIBLE PROXIMAL DIAGNOSTIC performed by Patricia Sanders DO at ENDOSCOPY [facility] COLORECTAL CANCER SCREEN; COLON 01/31/2002 sigmoid diverticulosis, normal-Dr. Alcaraz INFORMATION 01/23/1992 cyst excision PROSTATE BIOPSY 01/24/2018 done in office, Dr Donnelly Family History Problem Relation Age of Onset Blood Disorder Mother CLOT Diabetes Father Heart Disorder Father CHF @82 Diabetes Sister Heart Disorder Brother [place] 73 Heart Disorder Brother CABG Social History Socioeconomic History Marital status: Tobacco [...] Food in the Last Year: Never true Current Outpatient Medications Medication Sig Dispense Refill [...] BY MOUTH EVERY MORNING 100 Capsule 1 Furosemide 20 MG Oral Tablet (Lasix) TAKE ONE TABLET BY MOUTH EVERY DAY IN THE MORNING 100 Tablet 1 metFORMIN HCl ER 500 MG Oral [...] DAY IN THE MORNING 90 Tablet 1 hydrOXYzine HCl 10 MG Oral Tablet (Atarax) TAKE ONE TABLET BY MOUTH EVERY 6 HOURS NEEDED FOR ANXIETY 360 Tablet 1 amLODIPine Besylate 5 MG Oral Tablet (Norvasc) Take 1 Tablet by mouth in the morning. 100 Tablet 3 Trelegy Ellipta 100-62.5-25 MCG/ACT Aerosol Powder Breath Activated (Vzxxugfjhvx-Lvsszbhqdscz-Raocuxtjrp) Inhale by mouth 1 Puff in the morning. Rinse after. 180 Blister Dosing Unit 2 Albuterol Sulfate HFA 108 (90 Base) MCG/ACT Inhalation Aerosol Solution INHALE TWO PUFFS BY MOUTH FOUR TIMES A DAY NEEDED FOR WHEEZING 54 g 2 hydroCHLOROthiazide 12.5 MG Oral Capsule (Hydrodiuril) Take 1 Capsule by mouth in the morning. 90 Capsule 3 Mupirocin 2 % External Ointment (Bactroban) Apply topically to affected area 3 times a day for 14 days. 22 g 1 Fluticasone Propionate 50 MCG/ACT Nasal Suspension (Flonase) Administer 1 [place] into nostril at bedtime. 16 g 3 No current facility-administered medications for this visit. ALLERGIES: Review of patient's allergies indicates: No Known Allergies REVIEW OF SYSTEMS: CONSTITUTIONAL: No change in weight, No weakness, No fatigue, and No fevers, sweats, or chills EYE: No recent significant change in vision and No eye pain, redness, discharge EARS: No ear pain and No recent change in hearing NOSE: No history of frequent colds or sinusitis and No nasal stuffiness PULMONARY: No cough, sputum, or hemoptysis and No recent change in breathing CARDIOVASCULAR: No chest pain and No shortness of breath EXTREMITIES: Ingrowing nail, left great toe SKIN/INTEGUMENTARY: No edema, No rash, and No itching NEUROLOGIC: Normal balance, No headaches, No seizures, and No weakness PSYCHIATRIC: No depression, No anxiety, and No psychosis LEFT FOCUSED PODIATRIC EXAM: Vitals: There were no vitals filed for this visit. General: Patient is awake alert oriented to person place time. No apparent distress. Vascular: DP/PT pulses palpable. CFT < 3 sec 1-5. No edema noted. Temperature gradient is normal warm to cold. Neurologic: Protective sensation intact to light touch. Sensation to sharp/dull is intact. There is no babinskiresponse elicited. Ankle clonus is absent. Dermatological: Skin is normal in appearance with no open lesions or interdigital macerations. Nails 1-5 are normalin length and thickness. Pedal hair is noted. Ingrowing nail, lateral border, left great toe. Musculoskeletal: POP noted to the left great toe. No pain with active or passive ROM of the digits or ankle joint. Muscle strength is 5/5 for all muscle groups of the lower extremity. DIAGNOSTIC STUDIES: None ASSESSMENT: Ingrowing nail, lateral border, left great toe Pain in toe, left great toe PLAN: - Slant back procedure performed with a 6100 blade and nail nipper with relief. - Triple abx ointment applied. - OTC pain medication PRN - Ok to soak in warm, soapy water or epsom salts. - Activity to tolerance - Pt to RTC PRN. Instructed to call with any problems or questions. Ese Jin DPM Referring: Margarette Goodman MD documented in this encounter Nursing Notes * Odilia Degroot LPN - 05/18/2023 12:47 PM EST Pt presents for new visit, referred by PCP. Kevin Hale first toenail, was very painful a few weeks ago, a little better now. Has been soaking the toe and using bactroban ointment. States he is usuallyable to cut them out on his own. documented in this encounter Plan of Treatment Upcoming Encounters Date Type Department Care Team (Late st Contact Info) Description 07/30/2023 9:40 AM EDT Office Visit Family Practice [facility] [address] [facility] [place] [address] Roberto Duncan III, MD 200 [facility] [place] [address] 08/04/2023 8:00 AM EDT Office Visit Cardiology, [facility] [place] [address] Ashley Perez CRNP 132 [facility] [place] [address] 11/09/2023 11:00 AM EDT Office Visit Sleep Disorders, [facility] [address] [place] [address] Vidya Wong MD [address] [place] [address] Scheduled Procedures Name Priority Associated Diagnoses Date/Ti me COLONOSCOPY FLEXIBLE PROXIMA L DIAGNOSTIC Recall Screening for colon cancer Scheduled Referrals Name Type Priority Associated Diagnoses Orde r Schedule PODIATRY REFERRAL OP Referral Within 10 days (routine) Ingrown toenail of left foot Ordered: 2023 Health Maintenance Due Date Last Done Comments [...] exists LUNG CANCER SCREENING - USE SMARTSET 42359 Completed 04/12/2023, 04/06/2022, 07/23/2017, Additional history exists [...] as of this encounter Visit Diagnoses Diagnosis Ingrowing nail, left great toe- Primary Ingrowing nail Pain in toe of left foot Pain in limb Ingrown toenail of left foot [L60.0] documented in this encounter Care Teams Evening Sitter Relationship Specialty Start Date End Date Roberto Duncan III, MD 200 [facility] [place] [address] PCP - General 03/12/01 documented as of this encounter
--- OUTSIDE RECORDS SUMMARY | 2023-08-10 06:20 | External Medical Summary | Summary of Care ---
Author Name Unknown Organization [facility] Address [address] [place] [address] Phone [phone] Care Team Providers Care Molecular Spectroscopist Name Role Phone Dakota PRASAD MD, Roberto Harkins Primary Care Provider [phone] Reason for Referral * Evaluate & Treat - Unlimited Visits (Within 10 days (routine)) - Authorized Specialty Diagnoses / Procedures Referred By Caren schroeder Referred To Contact Podiatry Diagnoses Ingrown toenail of left foot Margarette Goodman MD [address] [place] [address] Referral ID Status Reason Start Date Expiration Date Visits Requested Visits Authorized [id number] Authorized Specialty Services Required [phone] Question Answer Referral Priority Within 10 days (routine) Where should this appointment be scheduled? [facility] Which condition are you referring this patient for? In-grown nails Reason for Visit * Reason Comments Acute Encounter Details Date Type Department Care Team (Late st Contact Info) Description 2023 3:20 PM EST Office Visit Family Practice [facility] [place] [address] [place] [address] Margarette Goodman MD [address] [place] [address] Ingrown toenail of left foot* Allergies No known active allergiesdocumented as of this encounter (statuses as of 2023) Medications Medication Sig Dispensed Refills Start Date End Date Status Meclizine HCl 25 MG Oral Tablet (Antivert) TAKE 1 TABLET BY MOUTH 3 TIMES DAILY NEEDED FOR DIZZINESS. 30 Tablet 0 03/10/2021 Active Additional Information Patient not taking.Reported on 04/20/2023 Fluticasone Propionate 50 MCG/ACT Nasal Suspension (Flonase)Indicatio ns:Chronic frontal sinusitis Administer 2 Sprays into each nostril daily. 16 g 5 03/27/2021 Active Additional Information Patient taking differently:2 [place] Each Nostril Daily(AM),As needed, Reported on 06/17/2022 [...] 14 days. 22 g 1 2023 Active documented as of this encounter (statuses as of 2023) Active Problems Problem Noted Date Diagnosed Date Atherosclerosis of aorta 07/23/2022 Atherosclerosis of coronary artery of [place] heart without angina pectoris 07/23/2022 Anxiety and [...] as of this encounter (statuses as of 2023) Resolved Problems Problem Noted Date Diagnosed Date [...] as of this encounter (statuses as of 2023) Immunizations Name Administration Dates Next Due COVID-19 mRNA, LNP-s, No Pre serve, 2-Dose Series (NeurAxon) 01/29/2021,06/12/2020,05/15/2020 Pneumococcal Conjugate Vacc, 13 Valent (Prevnar) [...] Sign Reading Time Taken Comments Blood Pressure 126/72 2023 3:10 PM EST Pulse 68 2023 3:10 PM EST Temperature 36.6 C (97.9 F) 2023 3:10 PM ES T Respiratory Rate 16 2023 3:10 PM EST Oxygen Saturation 96% 2023 3:10 PM EST Inhaled Oxygen Concentration - - Weight 97.6 kg (215 lb 1.9 oz) 2023 3:10 P M EST Height 180.3 cm (5' 11") 2023 3:10 PM EST Body Mass Index 30 2023 3:10 PM EST documented in this encounter Progress Notes * Margarette Goodman MD - 2023 3:23 PM EST Subjective Chief Complaint Patient presents with Acute HPI: Dickson Diamond is a 73 year old male. The following issues were addressed today: Patient presents with several days of left great toe pain. Thinks he may have an ingrown toenail. Usually has to trim away every few months. Most tender at the tip of the toe. Denies any swelling or purulent drainage. Review of Systems: See HPI Objective BP 126/72 | Pulse 68 | Temp 36.6 C (97.9 F) (Tympanic) | Resp 16 | Ht 1.803 m (5' 11") | Wt 97.6 kg (215 lb 1.9 oz) | SpO2 96% | BMI 30.00 kg/m | BSA 2.21 m Wt Readings from Last 3 Encounters: 05/10/23 97.6 kg (215 lb 1.9 oz) 04/20/23 100.2 kg (221 lb) 01/29/23 100 kg (220 lb 6.4 oz) BP Readings from Last 3 Encounters: 05/10/23 126/72 04/20/23 134/76 01/29/23 134/78 Left great toenail ingrown at lateral nail fold, minimal edema and erythema, no abscess or drainage, tender to palpation Assessment & Plan 1. Ingrown toenail of left foot Instructed warm Epsom salt soaks for 15 minutes three times daily followed by application of mupirocin. Will set up with podiatry given that this seems to be a recurrent issue. - Mupirocin 2 % External Ointment (Bactroban); Apply topically to affected area 3 times a day for 14 days. Dispense: 22 g; Refill: 1 - PODIATRY REFERRAL OP Follow-up: Return if symptoms worsen or fail to improve. Check-out note: Podiatry referral ordered This note was electronically signed by Margarette Goodman MD documented in this encounter Nursing Notes * Linda Garza LPN - 2023 3:09 PM EST Patient presents today for a possible ingrown toenail on his left toe. He said it started causing him pain 5 days ago. documented in this encounter Plan of Treatment Upcoming Encounters Date Type Department Care Team (Late st Contact Info) Description 05/11/2023 10:20 AM EST Office Visit Sleep Disorders, [facility] [address] [place] [address] Vidya Wong MD [address] [place] [address] 05/13/2023 10:40 AM EST Office Visit Pulmonary Medicine, [facility] 132 [facility] [place] [address] Jose Harley MD [address] [place] [facility] [place] [address] 05/18/2023 1:00 PM EST Office Visit Podiatry [facility] 132 [facility] [place] [address] Ese Jin DPM 132 [facility] [place] [address] 07/30/2023 9:40 AM EDT Office Visit Family [facility] [address] [facility] [place] [address] Roberto Duncan III, MD 200 [facility] [place] [address] 08/04/2023 8:00 AM EDT Office Visit Cardiology, [facility] [address] [place] [address] Ashley Perez CRNP [address] [place] [address] Scheduled Procedures Name Priority Associated Diagnoses Date/Ti [...] PAST YEAR FOR COPD 07/16/2023 07/15/2022, 01/15/2016 GFR 07/21/2023 07/20/2022, 08/20, 04/01/2021, Additional history exists HbA1c 07/28/2023 01/27/2023, 05/0 03/2022, 04/06/2022, Additional history exists B-12 01/30/2024 01/29/2023, 03/22, 06/20/2021, Additional history exists Diabetic Foot Exam 01/30/2024 01/29/2023, 0 10/06/2021, 12/27/2020, Additional history exists DTaP,Tdap,and Td Vaccines (3 - Td or Tdap) 01/21/2032 01/20/2022, 07/30/2008 Pneumococcal Vaccine: 65+ Years Completed 10/05/2016, 03/29/2014, 04/22/2009 Zoster Vaccines Completed 01/09/2022, 10/22/2021 Colonoscopy Discontinued 07/15/2022, 06/21, 02/02/2012, Additional history exists Colorectal Cancer Screening Discontinued Influenza Vaccine (FLU shot) Completed 01/29/2023, 12/01/2021, 12/27/2020, Additional history exists LUNG CANCER SCREENING - USE SMARTSET [id number] Completed 04/12/2023, 04/06/2022, 07/23/2017, Additional history exists [...] as of this encounter Visit Diagnoses Diagnosis Ingrown toenail of left foot- Primary documented in this encounter Care Teams Molecular Spectroscopist Relationship Specialty Start Date End Date Roberto Duncan III, MD [address] [place] [address] PCP - General 03/12/01 documented as of this encounter
--- OUTSIDE RECORDS SUMMARY | 2023-08-10 06:20 | External Medical Summary | Summary of Care ---
Author Name Unknown Organization [facility] Address [address] [place] [address] Phone [phone] Care Team Providers Care Vegetable Washer Name Role Phone Dakota PRASAD MD, Roberto Harkins Primary Care Provider [phone] Encounter Details Date Type Department Care Team (Late st Contact Info) Description 05/08/2023 Orders Only PATIENT PORTAL DO NOT DELETE THIS DEPT USED BY [place] [id number] Allergies No known active allergiesdocumented as of this encounter (statuses as of 05/08/2023) Medications Medication Sig Dispensed Refills Start Date [...] 03/27/2021 Active Additional Information Patient taking differently:2 [place] Each Nostril Daily(AM),As needed, Reported on 06/17/2022 [...] (Glucophage XR)Indications:DM type 2 nursing care encounter ([facility]) TAKE THREE TABLETS BY MOUTH EVERY DAY IN THE MORNING 300 Tablet 1 10/21/2022 4 Active Lisinopril 40 MG Oral Tablet TAKE [...] the morning. 90 Capsule 3 05/07/2023 Active documented as of this encounter (statuses as of 05/08/2023) Active Problems Problem Noted Date Diagnosed Date Atherosclerosis of aorta 07/23/2022 Atherosclerosis of coronary artery of [place] heart without angina pectoris 07/23/2022 Anxiety and [...] as of this encounter (statuses as of 05/08/2023) Resolved Problems Problem Noted Date Diagnosed Date [...] as of this encounter (statuses as of 05/08/2023) Immunizations Name Administration Dates Next Due COVID-19 [...] 10:20 AM EST Office Visit Sleep Disorders, [facility] [place] [address] Vidya Wong MD [address] [place] [address] 05/13/2023 10:40 AM EST Office Visit Pulmonary Medicine, [facility] 132 [facility] [place] [address] Jose Harley MD [address] [facility] [address] 07/30/2023 9:40 AM EDT Office Visit Family Practice [facility] [address] [facility] [place] [address] Roberto Duncan III, MD 200 [facility] [place] [address] 08/04/2023 8:00 AM EDT Office Visit Cardiology, [facility] 132 [facility] [place] [address] Ashley Perez CRNP [address] [place] [address] Scheduled Procedures Name Priority Associated Diagnoses Date/Ti me COLONOSCOPY FLEXIBLE PROXIMA L DIAGNOSTIC Recall Screening for colon cancer Health Maintenance Due Date Last Done Comments Alpha-1 Antitrypsin 1966 Cologuard 1993 Fecal Occult Blood Test 1993 Sigmoidoscopy 1993 Depression, Most Recent Score >= 10 (will [...] - Td or Tdap) 01/21/2032 01/20/2022, 07/30/2008 Colonoscopy 07/15/2032 07/15/2022, 06/21, 02/02/2012, Additional history exists Colorectal Cancer Screening 07/15/2032 AAA Screening Completed 09/26/2013 Pneumococcal Vaccine: 65+ Years Completed 10/05/2016, 03/29/2014, 04/22/2009 Zoster Vaccines Completed 01/09/2022, 10/22/2021 Influenza Vaccine (FLU shot) Completed 12/2022, 12/01/2021, 12/27/2020, Additional history exists LUNG CANCER SCREENING - USE SMARTSET 21474 Completed 04/12/2023, 04/06/2022, 07/23/2017, Additional history exists GARDASIL-HPV IMMUNIZATION SERIES Aged Out No longer eligible based on patient's age to complete this topic Hepatitis B Aged Out No longer eligi ble based on patient's age to complete this topic MENINGOCOCCAL (MENACTRA/MENVEO) Aged Out No longer eligible based on patient's age to complete this topic documented as of this encounter Medical Devices Not on filedocumented as of this encounter Care Teams Vegetable Washer Relationship Specialty Start Date End Date Roberto Duncan III, MD [address] [facility] [place] [address] PCP - General 03/12/01 documented as of this encounter
--- OUTSIDE RECORDS SUMMARY | 2023-08-10 06:20 | External Medical Summary | Summary of Care ---
Author Name Unknown Organization [facility] Address [address] [place] [address] Phone [phone] Care Team Providers Care Ladies' Hat Trimmer Name Role Phone Dakota PRASAD MD, Roberto Harkins Primary Care Provider [phone] Reason for Visit * Reason Comments Outpatient Testing Encounter Details Date Type Department Care Team (Late st Contact Info) Description 05/13/2023 10:00 AM EST Laboratory Laboratory, [facility] [address] [facility] [place] [id number] [facility] [address] [place] [address] Essential hypertension with goal blood pressure less than 140/90 Allergies No known active allergiesdocumented as [...] 03/27/2021 Active Additional Information Patient taking differently:2 [place] Each Nostril Daily(AM),As needed, Reported on 06/17/2022 [...] XR)Indications:DM type 2 nursing care encounter ([facility]) TAKE THREE TABLETS BY MOUTH EVERY DAY [...] 50 MCG/ACT Nasal Suspension (Flonase) Administer 1 [place] into nostril at bedtime. 16 g 3 05/11/2023 Active documented as of this encounter (statuses as of 05/13/2023) Active Problems Problem Noted Date Diagnosed Date Atherosclerosis of aorta 07/23/2022 Atherosclerosis of coronary artery of [place] heart without angina pectoris 07/23/2022 Anxiety and [...] mRNA, LNP-s, No Pre serve, 2-Dose Series (tribr) 01/29/2021,06/12/2020,05/15/2020 Pneumococcal Conjugate Vacc, 13 Valent (Prevnar) [...] 10:40 AM EST Office Visit Pulmonary Medicine, [facility] [address] [facility] [place] [address] Jose Harley MD [address] [place] [address] Arrived 05/18/2023 1:00 PM EST Office Visit Podiatry [facility] [address] [place] [address] Ese Jin DPM 132 [facility] [place] [address] 07/30/2023 9:40 AM EDT Office Visit [facility] [address] [facility] [place] [address] Roberto Duncan III, MD 200 [facility] [place] [address] 08/04/2023 8:00 AM EDT Office Visit Cardiology, [facility] [address] [place] [address] Ashley Perez CRNP [address] [place] [address] 11/09/2023 11:00 AM EDT Office Visit Sleep Disorders, [facility] [address] [place] [address] Vidya Wong MD [address] [place], [place] [id number] Pending Results Name Type Priority Associated Diagnoses Date /Time BASIC METABOLIC PANEL Lab Routine Essential hypertension with goal blood pressure less than 140/90 05/13/2023 9:58 AM EST Scheduled Procedures Name Priority Associated Diagnoses Date/Ti [...] exists LUNG CANCER SCREENING - USE SMARTSET 87300 Completed 04/12/2023, 04/06/2022, 07/23/2017, Additional history exists [...] as of this encounter Visit Diagnoses Diagnosis Essential hypertension with goal blood pressure less than 140/90 documented in this encounter Care Teams Ladies' Hat Trimmer Relationship Specialty Start Date End Date Roberto Duncan III, MD [address] [place], [place] [address] PCP - General 03/12/01 documented as of this encounter
--- OUTSIDE RECORDS SUMMARY | 2023-08-10 06:20 | External Medical Summary | Summary of Care ---
Author Name Unknown Organization [facility] Address [address] [place] [address] Phone [phone] Care Team Providers Care Layboy Tender Name Role Phone Dakota PRASAD MD, Roberto Harkins Primary Care Provider [phone] Reason for Visit * Reason Onset Date Comments Test Results 05/06/2023 Encounter Details Date Type Department Care Team (Late st Contact Info) Description 05/06/2023 Telephone Cardiology, [facility] [address] [facility] [place] [address] Ashley Perez CRNP [address] [facility] [place] [address] Test Results Allergies No known active allergiesdocumented as of this encounter (statuses as of 05/07/2023) Medications Medication Sig Dispensed Refills Start Date [...] 03/27/2021 Active Additional Information Patient taking differently:2 [place] Each Nostril Daily(AM),As needed, Reported on 06/17/2022 [...] XR)Indications:DM type 2 nursing care encounter ([facility]) TAKE THREE TABLETS BY MOUTH [...] as of this encounter (statuses as of 05/07/2023) Active Problems Problem Noted Date Diagnosed Date Atherosclerosis of aorta 07/23/2022 Atherosclerosis of coronary artery of [place] heart without angina pectoris 07/23/2022 Anxiety and [...] as of this encounter (statuses as of 05/07/2023) Resolved Problems Problem Noted Date Diagnosed Date [...] as of this encounter (statuses as of 05/07/2023) Immunizations Name Administration Dates Next Due COVID-19 mRNA, LNP-s, No Pre serve, 2-Dose Series (Ombitron) 01/29/2021,06/12/2020,05/15/2020 Pneumococcal Conjugate Vacc, 13 Valent (Prevnar) [...] encounter Miscellaneous Notes * Telephone Encounter - Salbador Gomez RN - 05/07/2023 2:58 PM EST Called and spoke to the patient and reviewed the message with him from Ashley Chapman. He stated he understood * Telephone Encounter - Salbador Gomez RN - 05/07/2023 2:57 PM EST .Pending Prescriptions: Disp Refills hydroCHLOROthiazide 12.5 MG Oral Capsule *90 Cap*3 Sig: Take 1 Capsule by mouth in the morning. Last Visit: 04/20/2023 (in office), Visit date not found (telemedicine) Next Visit: 08/04/2023 Last medication order date: new Have you choosen a preferred pharm?? yes Patient Active Problem List Diagnosis Code ADVANCE DIRECTIVE INFORMATION Dyslipidemia, goal LDL below 100 E78.5 History of squamous cell carcinoma of skin Z85.828 History of squamous cell carcinoma Z85.89 History of basal cell carcinoma Z85.828 History of nonmelanoma skin cancer Z85.828 Essential hypertension with goal blood pressure less than 140/90 I10 Obstructive sleep apnea of adult G47.33 Hypertension associated with diabetes (HCC) E11.59, I15.2 Type 2 diabetes mellitus with hemoglobin A1c goal of less than 8.0% ([facility]) E11.9 Anxiety state F41.1 COPD, group A, by GOLD 2017 classification ([facility]) J44.9 Anxiety and depression F41.9, F32.A Adjustment disorder with mixed anxiety and depressed mood F43.23 Atherosclerosis of aorta ([facility]) I70.0 Atherosclerosis of coronary artery of [place] heart without angina pectoris I25.10 Labs: Lab Results Component Value Date/Time CREATININE - [facility] 1.0 07/20/2022 07:58 AM CREATININE - [facility] 1.0 12/11/2019 08:00 AM CREATININE, RANDOM URINE - [facility] 172 04/06/2022 03:13 PM CREATININE, RANDOM URINE - [facility] 154 04/18/2018 09:08 AM Lab Results Component Value Date/Time POTASSIUM - [facility] 5.1 07/20/2022 07:58 AM POTASSIUM - [facility] 4.7 12/11/2019 08:00 AM Lab Results Component Value Date/Time TSH - [facility] 2.25 01/29/2023 08:32 AM TSH - [facility] 2.44 08/17/2018 10:17 AM Lab Results Component Value Date/Time LDL CHOLESTEROL (CALCULATED) - [facility] 89 07/20/2022 07:58 AM LDL CHOLESTEROL (CALCULATED) - [facility] 89 12/23/2020 08:49 AM LDL CHOLESTEROL (CALCULATED) - [facility] 81 12/11/2019 08:00 AM LDL CHOLESTEROL (CALCULATED) - [facility] 104 04/05/2019 07:49 AM LDL CHOLESTEROL (DIRECT MEASURE) - [facility] NOT APPLICABLE 12/11/2019 08:00 AM LDL CHOLESTEROL (DIRECT MEASURE) - [facility] NOT APPLICABLE 04/05/2019 07:49 AM LDL CHOLESTEROL (DIRECT MEASURE) - [facility] 86 08/13/2017 07:51 AM LDL CHOLESTEROL (DIRECT MEASURE) - [facility] 91 09/15/2016 07:37 AM Lab Results Component Value Date/Time ALT - [facility] 38 07/20/2022 07:58 AM ALT - [facility] 47 12/11/2019 08:00 AM Hemoglobin AIC Results: Lab Results Component Value Date/Time HEMOGLOBIN A1C - [facility] 6.3 (H) 01/27/2023 09:57 AM HEMOGLOBIN A1C - [facility] 6.3 (H) 07/20/2022 07:58 AM HEMOGLOBIN A1C - [facility] 6.3 (H) 04/06/2022 03:10 PM HEMOGLOBIN A1C - [facility] 6.6 (H) 12/11/2019 08:00 AM HEMOGLOBIN A1C - [facility] 6.7 (H) 04/05/2019 07:49 AM HEMOGLOBIN A1C - [facility] 6.7 (H) 10/11/2018 08:07 AM * Telephone Encounter - Ashley Perez CRNP - 05/07/2023 2:47 PM EST Please have the patient start HCTZ 12.5 mg daily. Ask about pharmacy. Repeat BMP in 1 week. ALOK Reyna * Telephone Encounter - Sim Farah LPN - 05/06/2023 12:51 PM EST Sent patient a CompleteSet message to make aware. Awaiting reply. ----- Message from ALOK Li sent at 05/06/2023 12:45 PM EST ----- LVEF normal at 55-59%. Moderate concentric LVH noted. Trivial MR, Mild TR. Aortic root and prox ascending aorta mildly enlarged at 4.0 cm-- will continue to monitor Small loculated pericardial effusion, chronic. No tamponade. -- stable. At his last appt I had him increase his Lasix for 3 days and reduced his Norvasc due to leg swelling. Please follow up with patient and see how he is feeling. Ask about home BP readings. May want to adjust Lasix further vs adding spironolactone. documented in this encounter Plan of Treatment Upcoming Encounters Date Type Department Care Team (Late st Contact Info) Description 05/11/2023 10:20 AM EST Office Visit Sleep Disorders, [address] [place] [address] Vidya Wong MD [address] [place] [address] 05/13/2023 10:40 AM EST Office Visit Pulmonary Medicine, [facility] 132 [facility] [place] [address] Jose Harley MD [address] [facility] [place] [address] 07/30/2023 9:40 AM EDT Office Visit Family Practice [facility] 200 [facility] [place] [place] [address] Roberto Duncan III, MD [address] [place] [address] 08/04/2023 8:00 AM EDT Office Visit Cardiology, [facility] [address] [facility] [place] [address] Ashley Perez CRNP 132 [facility] [place] [address] Scheduled Orders Name Type Priority Associated Diagnoses Orde r Schedule BASIC METABOLIC PANEL Lab Routine Essential hypertension with goal blood pressure less than 140/90 Expected: 05/14/2023 (Approximate), Expires: 05/07/2024 Scheduled Procedures Name Priority Associated Diagnoses Date/Ti [...] exists LUNG CANCER SCREENING - USE SMARTSET [id number] Completed 04/12/2023, 04/06/2022, 07/23/2017, Additional history exists [...] hypertension with goal blood pressure less than 140/90- Primary documented in this encounter Care Teams Layboy Tender Relationship Specialty Start Date End Date Roberto Duncan III, MD [address] [facility] [place] [address] PCP - General 03/12/01 documented as of this encounter
--- OUTSIDE RECORDS SUMMARY | 2023-08-10 06:20 | External Medical Summary | Summary of Care ---
Author Name Unknown Organization [facility] Address [address] [place] [address] Phone [phone] Care Team Providers Care Manager Art Name Role Phone Dakota PRASAD MD, Roberto Harkins Primary Care Provider [phone] Reason for Visit * Reason Comments Follow Up * Evaluate & Treat - Unlimited Visits (Within 10 days (routine)) - Authorized Specialty Diagnoses / Procedures Referred By Contmaryellen t Referred To Contact Sleep Medicine / Sleep Disorders Diagnoses Pericardial effusion Essential hypertension with goal blood pressure less than 140/90 Ashley Perez CRNP [address] [place] [address] Referral ID Status Reason Start Date Expiration Date Visits Requested Visits Authorized [id number] Authorized Specialty Services Required 04/20/2023 2 2 Encounter Details Date Type Department Care Team (Late st Contact Info) Description 05/11/2023 10:20 AM EST Office Visit Sleep Disorders, [facility] [address] [place] [address] Vidya Wong MD [address] [place], [place] [id number] ANNEL (obstructive sleep apnea)* Allergies No known active allergiesdocumented as of this encounter (statuses as of 05/11/2023) Medications Medication Sig Dispensed Refills Start Date End Date Status Meclizine HCl 25 MG Oral Tablet (Antivert) TAKE 1 TABLET BY MOUTH 3 TIMES DAILY NEEDED FOR DIZZINESS. 30 Tablet 0 03/10/2021 Active Fluticasone Propionate 50 MCG/ACT Nasal Suspension (Flonase)Indicatio ns:Chronic frontal sinusitis Administer 2 Sprays into each nostril daily. 16 g 5 03/27/2021 Active Additional Information Patient taking differently:2 Sweeny Each Nostril Daily(AM),As needed, Reported on 06/17/2022 [...] for 14 days. 22 g 1 2023 4 Active Fluticasone Propionate 50 MCG/ACT Nasal Suspension (Flonase) Administer 1 Sweeny into nostril at bedtime. 16 g 3 05/11/2023 Active documented as of this encounter (statuses as of 05/11/2023) Active Problems Problem Noted Date Diagnosed Date Atherosclerosis of aorta 07/23/2022 Atherosclerosis of coronary artery of [place] heart without angina pectoris 07/23/2022 Anxiety and [...] as of this encounter (statuses as of 05/11/2023) Resolved Problems Problem Noted Date Diagnosed Date [...] as of this encounter (statuses as of 05/11/2023) Immunizations Name Administration Dates Next Due COVID-19 mRNA, LNP-s, No Pre serve, 2-Dose Series ([employer]) 01/29/2021,06/12/2020,05/15/2020 Pneumococcal Conjugate Vacc, 13 Valent (Prevnar) [...] 05/06/2016 Smokeless Tobacco: Never Tobacco Cessation:Counseling Given: Not Answered Alcohol Use Standard Drinks/Week Comments Yes 0 [...] Sign Reading Time Taken Comments Blood Pressure 139/64 05/11/2023 10:11 AM EST Pulse 71 05/11/2023 10:11 AM EST Temperature - - Respiratory Rate 18 05/11/2023 10:1 1 AM EST Oxygen Saturation 95% 05/11/2023 10: 11 AM EST Inhaled Oxygen Concentration - - Weight 98.7 kg (217 lb 11.2 oz) 024 10:11 AM EST Height 180.3 cm (5' 11") 05/11/2023 10: 11 AM EST Body Mass Index 30.36 05/11/2023 10:11 AM EST documented in this encounter Progress Notes * Vidya Wong MD - 05/11/2023 10:30 AM EST Name: Dickson Diamond Sex: male : 1950 02/05/2022 (in office), 08/23/2019 (telemedicine) Nursing Notes: Angeles Lee LPN 05/11/23 1029 Signed Here for return on ANNEL. Has CPAP, but currently not using x 6 months. Has attempted several times over the 6 months but is having issues with his nasal breathing and mask. Patient is questioning if the pressure setting has something to do with issues. [place] Sleepiness Scale Question 05/11/2023 10:26 AM EST - Filed by Patient What is the chance you will doze off in the following situation? Sitting and reading High chance of dozing Watching TV High chance of dozing Sitting inactive in a public place, such as a theater or meeting No chance of dozing As a passenger in a car for an hour without a break No chance of dozing Lying down to rest in the afternoon when circumstances permit High chance of dozing When sitting and talking to someone No chance of dozing When sitting quietly after lunch without alcohol High chance of dozing In a car, while stopped for a few minutes in traffic No chance of dozing Score (range: 0 - 24) 12 Functional Outcomes Of Sleep Question 05/11/2023 10:29 AM EST - Filed by Patient Please complete the following questions. Do you have difficulty concentrating because you are sleepy or tired? Yes, moderate Do you have difficulty remembering things because you are sleepy or tired? No Do you have difficulty operating a motor vehicle for short distances (less than 100 miles) because you become sleepy? No Do you have difficulty operating a motor vehicle for long distances (more than 100 miles) because you become sleepy? No Do you have difficulty visiting family or friends in their home because you become sleepy or tired?Yes, moderate Has your relationship with family, friends, or work colleagues been affected because you are sleepyor tired? No Do you have difficulty watching a movie or video because you become sleepy or tired? Yes, moderate Do you have difficulty being as active as you want to be in the evening because you are tired or sleepy? Yes, extreme Do you have difficulty being as active as you want to be in the morning because you are tired or sleepy? No Has your mood been affected because you are sleepy or tired? Yes, moderate Score (range: 10 - 40) 29 Myc Visit Accident Related Question Question 05/11/2023 10:29 AM EST - Filed by Patient Is this visit related to an accident? (i.e work, motor vehicle) No INTERVAL HISTORY: Patient came for f/u. Patient is not using CPAP because he feels congested and hecan't keep the mask on. DME: [facility] Patient goes to bed by 8-9 PM. Patient usually wakes up by 7 AM. On weekends, patient tends to keep same schedule. Patient estimates a total sleep time (in a 24 hour period) of 7 hours. Sleep position: supine CPAP: 10 cmH2O with a FFM SLEEP FUNCTIONAL OUTCOME MEASURES ESS: 03/14 Past Medical History: Diagnosis Date Benign neoplasm of colon 02/02/12 COLONOSCOPY FLEXIBLE PROXIMAL DIAGNOSTIC performed by Patricia Sanders DO at ENDOSCOPY [facility],HYPERPLASTIC POLYPS REPEAT COLONOSCOPY IN 10 YEARS Diabetic eye exam (HCC) 05/05/2011 [facility], no retinopathy Diabetic eye exam (HCC) 05/11/13 no retinopathy GERD (gastroesophageal reflux disease) ANNEL (obstructive sleep apnea) Past Surgical History: Procedure Laterality Date C-/T-SPINE PARAVERTEBRAL FACET INJ, 1 LEVEL Right 12/01/2021 C-/T-SPINE PARAVERTEBRAL FACET INJ, 1 LEVEL performed by Shalonda Whittaker MD at OR [facility] C-/T-SPINE PARAVERTEBRAL FACET INJ,2 LEVELS Right 12/01/2021 C-/T-SPINE PARAVERTEBRAL FACET INJ, 2 LEVELS performed by Shalonda Whittaker MD at OR [facility] C-/T-SPINE PARAVERTEBRAL FACET INJ,3 LEVELS Right 12/01/2021 C-/T-SPINE PARAVERTEBRAL FACET INJ, 3 OR MORE LEVELS performed by Shalonda Whittaker MD at OR [facility] COLONOSCOPY, DIAGNOSTIC (RECTUM) 02/02/2012 COLONOSCOPY FLEXIBLE PROXIMAL DIAGNOSTIC performed by Patricia Sanders DO at ENDOSCOPY [facility],HYPERPLASTIC POLYPS REPEAT COLONOSCOPY IN 10 YEARS COLONOSCOPY, DIAGNOSTIC (RECTUM) 07/15/2022 diverticulosis in sigmoid colon / no specimens collected / recall 5 to 10 years/ COLONOSCOPY FLEXIBLE PROXIMAL DIAGNOSTIC performed by Patricia Sanders DO at ENDOSCOPY [facility] COLORECTAL CANCER SCREEN; COLON 01/31/2002 sigmoid diverticulosis, normal-Dr. Alcaraz INFORMATION 01/23/1992 cyst excision PROSTATE BIOPSY 01/24/2018 done in office, Dr Donnelly Social History Socioeconomic History Marital status: Spouse name: Not on file Number of children: Not on file Years of education: Not on file Highest education level: Not on file Occupational History Not on file Tobacco Use Smoking status: Former Current packs/day: 0.00 Average packs/day: 1 pack/day for 52.1 years (52.1 ttl pk-yrs) Types: Cigarettes Start date: 1964 Quit date: 05/06/2016 Years since quittin.0 Smokeless tobacco: Never Vaping Use Vaping Use: Never used Substance and Sexual Activity Alcohol use: Yes Comment: 1/daily Drug use: No Sexual activity: Not on file Other Topics Concern Not on file Social History Narrative Not on file Social Determinants of Health Financial Resource Strain: Not on file Food Insecurity: No Food Insecurity (01/14/2022) Hunger Vital Sign Worried About Running Out of Food in the Last Year: Never true Ran Out of Food in the Last Year: Never true Transportation Needs: Not on file Physical Activity: Not on file Stress: Not on file Social Connections: Not on file Intimate Partner Violence: Not on file Housing Stability: Not on file Sleep ROS: See HPI Allergies as of 05/11/2023 (No Known Allergies) Current Outpatient Medications Medication Sig Dispense Refill [...] Ellipta 100-62.5-25 MCG/ACT Aerosol Powder Breath Activated (Bpgqrczivbk-Otwdoracanfi-Markwhovku) Inhale by mouth 1 Puff in the [...] day for 14 days. 22 g 1 No current facility-administered medications for this visit. BP 139/64 (BP Site: Right Arm, BP Position: Sitting, BP Cuff Size: Large) | Pulse 71 | Resp 18 | Ht1.803 m (5' 11") | Wt 98.7 kg (217 lb 11.2 oz) | SpO2 95% | BMI 30.36 kg/m | BSA 2.22 m GENERAL: alert, healthy, no distress, well nourished, and well developed Exam: Const: No signs of acute distress present HEENT: Normocephalic, Nasal congestion absent, nasal valve incompetence absent, Posterior airspace:Boyd tongue position 3, Retrognathia absent, Overbite absent, High arched palate present, Tongue scalloping/ridging absent. Throat: Uvula. Neck: Supple and symmetric. Chest: Resp: CTA and negative wheezes/rhonchi/rales IHeart: Rhythm is regular. No heart murmur appreciated. Extremities: No edema of the lower limbs bilaterally. Musculoskeletal: Walks with a normal gait. Skin: Skin is warm and dry. Neuro: Coordination normal. No involuntary movement. Psych: Patient's attitude is cooperative. Mood is normal. Affect is normal. Impression and Plan Patient is a 73 yo gentleman with history of ANNEL, HTN, COPD ANNEL Will try CPAP again Continue using CPAP nightly Recommended routine cleaning and change of supplies as needed. Blood pressure was 139/64 today. JNC 7 lists ANNEL as a causal risk factor for hypertension. Effective treatment of hypertension decreases cardiovascular risk/injury. Consider weight loss. Lifestyle modification with diet and exercise changes were encouraged becauseweight loss often results in improvement of sleep disordered breathing. Avoid driving, operating heavy machinery or engaging in any activity that requires full alertness if feeling sleepy, drowsy or otherwise impaired. Recommended patient keep consistent bed/wake times and to get 7-8 hours of sleep Review good sleep hygiene F/U in 6 months Vidya Wong MD documented in this encounter Nursing Notes * Angeles Lee LPN - 05/11/2023 10:16 AM EST Here for return on ANNEL. Has CPAP, but currently not using x 6 months. Has attempted several times over the 6 months but is having issues with his nasal breathing and mask. Patient is questioning if the pressure setting has something to do with issues. [place] Sleepiness Scale Question 05/11/2023 10:26 AM EST - Filed by Patient What is the chance you will doze off in the following situation? Sitting and reading High chance of dozing Watching TV High chance of dozing Sitting inactive in a public place, such as a theater or meeting No chance of dozing As a passenger in a car for an hour without a break No chance of dozing Lying down to rest in the afternoon when circumstances permit High chance of dozing When sitting and talking to someone No chance of dozing When sitting quietly after lunch without alcohol High chance of dozing In a car, while stopped for a few minutes in traffic No chance of dozing Score (range: 0 - 24) 12 Functional Outcomes Of Sleep Question 05/11/2023 10:29 AM EST - Filed by Patient Please complete the following questions. Do you have difficulty concentrating because you are sleepy or tired? Yes, moderate Do you have difficulty remembering things because you are sleepy or tired? No Do you have difficulty operating a motor vehicle for short distances (less than 100 miles) because you become sleepy? No Do you have difficulty operating a motor vehicle for long distances (more than 100 miles) because you become sleepy? No Do you have difficulty visiting family or friends in their home because you become sleepy or tired?Yes, moderate Has your relationship with family, friends, or work colleagues been affected because you are sleepyor tired? No Do you have difficulty watching a movie or video because you become sleepy or tired? Yes, moderate Do you have difficulty being as active as you want to be in the evening because you are tired or sleepy? Yes, extreme Do you have difficulty being as active as you want to be in the morning because you are tired or sleepy? No Has your mood been affected because you are sleepy or tired? Yes, moderate Score (range: 10 - 40) 29 Myc Visit Accident Related Question Question 05/11/2023 10:29 AM EST - Filed by Patient Is this visit related to an accident? (i.e work, motor vehicle) No documented in this encounter Plan of Treatment Upcoming Encounters Date Type Department Care Team (Late st Contact Info) Description 05/13/2023 10:40 AM EST Office Visit Pulmonary Medicine, [facility] [address] [facility] [place] [address] Jose Harley MD [address] [facility] [place] [address] 05/18/2023 1:00 PM EST Office Visit Podiatry [facility] [address] [facility] [place] [address] Ese Jin DPM [address] [facility] [place] [address] 07/30/2023 9:40 AM EDT Office Visit Family Practice [facility] [address] [facility] [place] [address] Roberto Duncan III, MD [address] [facility] [place] [address] 08/04/2023 8:00 AM EDT Office Visit Cardiology, [facility] [address] [facility] [place] [address] Ashley Perez CRNP [address] [facility] [address] 11/09/2023 11:00 AM EDT Office Visit Sleep Disorders, [facility] [address] [facility] [place] [address] Vidya Wong MD [address] [place], [place] [phone] Scheduled Procedures Name Priority Associated Diagnoses Date/Ti [...] exists LUNG CANCER SCREENING - USE SMARTSET 44813 Completed 04/12/2023, 04/06/2022, 07/23/2017, Additional history exists [...] as of this encounter Visit Diagnoses Diagnosis ANNEL (obstructive sleep apnea)- Primary Obstructive sleep apnea (adult) (pediatric) documented in this encounter Care Teams Manager Art Relationship Specialty Start Date End Date Roberto Duncan III, MD [address] [place] [address] PCP - General 03/12/01 documented as of this encounter
--- OUTSIDE RECORDS SUMMARY | 2023-08-10 06:20 | External Medical Summary ---
Author Name Unknown Address Unknown Organization [facility] [place] [address] Laboratory Report Ordering Provider Test Date Status ZIGGY RANDLE 05/13/2023 09:58:19 Final Observation Date Value Abnormality Reference (Units ) Status BUN 05/13/2023 09:58:19 26 Above high normal 6-20 (mg/dL) Final Creatinine 05/13/2023 09:58:19 1.0 0.6-1.2 (mg/dL) Final Glomerular filtration rate/1.73 sq M.predicted [Volume Rate/Area] in Serum, Plasma or Blood by Creatinine-based formula (CKD-EPI) 05/13/2023 09:58:19 78 >=60 (mL/min) Final eGFR is calculated based on the CKD-EPI 2020 equation SODIUM 05/13/2023 09:58:19 142 135-146 (m mol/L) Final Potassium 05/13/2023 09:58:19 4.0 3.5-5.1 (m mol/L) Final Cl 05/13/2023 09:58:19 104 98-107 (mm ol/L) Final CO2 05/13/2023 09:58:19 25 22-32 (mmo l/L) Final Anion gap 05/13/2023 09:58:19 13 7-15 (mmol /L) Final Glucose 05/13/2023 09:58:19 131 Above high normal 70 -120 (mg/dL) Final Calcium 05/13/2023 09:58:19 9.9 8.4-10.2 ( mg/dL) Final Performing Location [facility] [place] [address]
--- OUTSIDE RECORDS SUMMARY | 2023-08-10 06:20 | External Medical Summary | Summary of Care ---
Author Name Unknown Organization [facility] Address [address] [place] [address] Phone [phone] Care Team Providers Care Design/Animation Instructor Name Role Phone Dakota PRASAD MD, Roberto Harkins Primary Care Provider [phone] Reason for Visit * Reason Onset Date Comments Appointment 02/03/2023 Encounter Details Date Type Department Care Team (Late st Contact Info) Description 02/03/2023 Telephone Access Center, [facility] [place] [facility] [address] [facility] *DO NOT REMOVE THIS DEPARTMENT* [place] [address] Services, Scheduling [address] [place] [address] Appointment Allergies No known active allergiesdocumented as of this encounter (statuses as of 05/05/2023) Medications Medication Sig Dispensed Refills Start Date End Date Status Meclizine HCl 25 MG Oral Tablet (Antivert) TAKE 1 TABLET BY MOUTH 3 TIMES DAILY NEEDED FOR DIZZINESS. 30 Tablet 0 03/10/2021 Active Additional Information Patient not taking.Reported on 04/20/2023 Fluticasone Propionate 50 MCG/ACT Nasal Suspension (Flonase)Indicati ons:Chronic frontal sinusitis Administer 2 Sprays into each nostril daily. 16 g 5 03/27/2021 Active Additional Information Patient taking differently:2 Wolf Each Nostril Daily(AM),As needed, Reported on 06/17/2022 rOPINIRole HCl 2 MG Oral Tablet (Requip) TAKE ONE TABLET BY MOUTH EVERY DAY BEFORE BEDTIME 100 Tablet 1 10/21/2022 10/21/2023 Active Naproxen 500 MG Oral Tablet (Naprosyn) TAKE ONE TABLET BY MOUTH TWICE A DAY WITH MORNING AND EVENING MEALS 200 Tablet 1 10/21/2022 10/21/2023 Active Additional Information Patient taking differently: Takes once per day, Reported on 04/20/2023 Tamsulosin HCl 0.4 MG Oral Capsule (Flomax) TAKE ONE CAPSULE BY MOUTH EVERY MORNING 100 Capsule 1 10/21/2022 10/21/2023 Active Furosemide 20 MG Oral Tablet (Lasix)Indication s:Generalized edema TAKE ONE TABLET BY MOUTH EVERY DAY IN THE MORNING 100 Tablet 1 10/21/2022 10/21/2023 Active metFORMIN HCl ER 500 MG Oral Tablet Extended Release 24 Hour (Glucophage XR)Indications:DM type 2 nursing care encounter ([facility]) TAKE THREE TABLETS BY MOUTH EVERY DAY IN THE MORNING 300 Tablet 1 10/21/2022 10/21/2023 Active Lisinopril 40 MG Oral Tablet TAKE ONE TABLET BY MOUTH EVERY MORNING 100 Tablet 1 10/21/2022 10/21/2023 Active Atorvastatin Calcium 80 MG Oral Tablet (Lipitor) TAKE ONE TABLET BY MOUTH EVERY DAY IN THE MORNING 90 Tablet 1 01/10/2023 01/10/2024 Active hydrOXYzine HCl 10 MG Oral Tablet (Atarax) TAKE ONE TABLET BY MOUTH EVERY 6 HOURS NEEDED FOR ANXIETY 360 Tablet 1 02/02/2023 Active documented as of this encounter (statuses as of 05/05/2023) Active Problems Problem Noted Date Diagnosed Date Atherosclerosis of aorta 07/23/2022 Atherosclerosis of coronary artery of three [place] heart without angina pectoris 07/23/2022 Anxiety and [...] as of this encounter (statuses as of 05/05/2023) Resolved Problems Problem Noted Date Diagnosed Date [...] as of this encounter (statuses as of 05/05/2023) Immunizations Name Administration Dates Next Due COVID-19 mRNA, LNP-s, No Pre serve, 2-Dose Series ([employer]) 01/29/2021,06/12/2020,05/15/2020 Pneumococcal Conjugate Vacc, 13 Valent (Prevnar) [...] Used Date Smoking Tobacco: Former Cigarettes 1 40 1 965 - 05/06/2016 Smokeless Tobacco: Never [...] encounter Miscellaneous Notes * Telephone Encounter - Tia, ANNEL Louis - 02/03/2023 9:24 AM EST Spoke to patient and rescheduled appt * Telephone Encounter - Sol Quezada No Ob/Or, ANNEL - 02/03/2023 8:43 AM EST Pt is sick / canceled appt for today 02.03.23 . Wants to [place] ( Right Cervical TPI's (11-03-22) ) Please advise. Thank you ! documented in this encounter Plan of Treatment Upcoming Encounters Date Type Department Care Team (Late st Contact Info) Description 05/11/2023 10:20 AM EST Office Visit Sleep Disorders, [address] [place] [address] Vidya Wong MD [address] [place] [address] 05/13/2023 10:40 AM EST Office Visit Pulmonary Medicine, [facility] [address] [facility] [place] [address] Jose Harley MD [address] [place] [facility] [place] [address] 07/30/2023 9:40 AM EDT Office Visit Family [facility] [address] [facility] [place] [address] Roberto Duncan III, MD [address] [facility] [place] [address] 08/04/2023 8:00 AM EDT Office Visit Cardiology, [facility] [place] [address] Ashley Perez CRNP [address] [facility] [place] [address] Scheduled Procedures Name Priority Associated Diagnoses Date/Ti me COLONOSCOPY FLEXIBLE PROXIMA L DIAGNOSTIC Recall Screening for colon cancer Health Maintenance Due Date Last Done Comments Alpha-1 Antitrypsin 1966 Cologuard 1993 Fecal Occult Blood Test 1993 Sigmoidoscopy 1993 Hepatitis B (1 of 3 - Risk 3-dose series) 2008 Depression, Most Recent Score >= 10 (will [...] exists LUNG CANCER SCREENING - USE SMARTSET 19346 Completed 04/12/2023, 04/06/2022, 07/23/2017, Additional history exists GARDASIL-HPV IMMUNIZATION SERIES Aged Out No longer eligible based on patient's age to complete this topic MENINGOCOCCAL (MENACTRA/MENVEO) Aged Out No longer eligible based on patient's age to complete this topic documented as of this encounter Medical Devices Not on filedocumented as of this encounter Care Teams Design/Animation Instructor Relationship Specialty Start Date End Date Roberto Duncan III, MD [address] [place] [address] PCP - General 03/12/01 documented as of this encounter
--- OUTSIDE RECORDS SUMMARY | 2023-08-10 06:21 | External Medical Summary | Summary of Care ---
Author Name Unknown Organization [facility] Address [address] [place] [address] Phone [phone] Care Team Providers Care Head Refrigeration Engineer Name Role Phone Dakota PRASAD MD, Roberto Harkins Primary Care Provider [phone] Reason for Visit * Reason Onset Date Comments Nurse Telephone Follow Up 02/17/2023 F/u in jection Encounter Details Date Type Department Care Team (Late st Contact Info) Description 02/17/2023 11:00 AM EST Scheduled Telephone Interventional Pain Center, [facility] [address], [place] [id number] [facility], Nurse Pain Medicine [address], [place] [id number] Arrived Allergies No known active allergiesdocumented as of this encounter (statuses as of 02/17/2023) Medications Medication Sig Dispensed Refills Start Date End Date Status Meclizine HCl 25 MG Oral Tablet (Antivert) TAKE 1 TABLET BY MOUTH 3 TIMES DAILY NEEDED FOR DIZZINESS. 30 Tablet 0 03/10/2021 Active Fluticasone Propionate 50 MCG/ACT Nasal Suspension (Flonase)Indicatio ns:Chronic frontal sinusitis Administer 2 Sprays into each nostril daily. 16 g 5 03/27/2021 Active Additional Information Patient taking differently:2 [place] Each Nostril Daily(AM),As needed, Reported on 06/17/2022 Trelegy Ellipta 100-62.5-25 MCG/INH Aerosol Powder Breath Activated (fluticasone-umecl idinium-vilanterol ) Inhale by mouth 1 Puff in the morning. Rinse after. 180 Blister Dosing Unit 3 06/27/2021 Active Additional Information Patient taking differently:1 Puff Inhalation Daily(AM), Rinse after,Indications: COPD, Reported on 02/05/2022 Albuterol Sulfate HFA 108 (90 Base) MCG/ACT Inhalation Aerosol Solution INHALE TWO PUFFS BY MOUTH FOUR TIMES A DAY NEEDED FOR WHEEZING 54 g 2 08/30/2021 Active amLODIPine Besylate 10 MG Oral Tablet (Norvasc)Indicatio ns:Essential hypertension with goal blood pressure less than 140/90 TAKE ONE TABLET BY MOUTH EVERY DAY IN THE MORNING 100 Tablet 2 04/27/2022 4 Active rOPINIRole HCl 2 MG Oral Tablet (Requip) TAKE ONE TABLET BY MOUTH EVERY DAY BEFORE BEDTIME 100 Tablet 1 10/21/2022 4 Active Naproxen 500 MG Oral Tablet (Naprosyn) TAKE ONE TABLET BY MOUTH TWICE A DAY WITH MORNING AND EVENING MEALS 200 Tablet 1 10/21/2022 4 Active Tamsulosin HCl 0.4 MG Oral Capsule (Flomax) [...] as of this encounter (statuses as of 02/17/2023) Active Problems Problem Noted Date Diagnosed Date Atherosclerosis of aorta 07/23/2022 Atherosclerosis of coronary artery of [place] heart without angina pectoris 07/23/2022 Anxiety and [...] as of this encounter (statuses as of 02/17/2023) Resolved Problems Problem Noted Date Diagnosed Date [...] as of this encounter (statuses as of 02/17/2023) Immunizations Name Administration Dates Next Due COVID-19 mRNA, LNP-s, No Pre serve, 2-Dose Series (Afluenta) 01/29/2021,06/12/2020,05/15/2020 Pneumococcal Conjugate Vacc, 13 Valent (Prevnar) 03/29/2014 Pneumococcal Polysaccharide PPV23 (Pneumovax) 10/05/2016,04/22/2009 SEASONAL INFLUENZA, PF, 6 M & Above, IM , (FLULAVAL or FLUZONE) 04/15/2018,02/17/2017 Season Influenza, Quad, PF, Adjuvanted, 65+ Yrs, IM (FLUAD) 01/24/2020 Seasonal Influenza, Quadriva lent Hd (Fluzone Hd) [...] drink = 0.6 oz pur e alcohol) daily PHQ-2 Answer Date Recorded PHQ Adult Total [...] Telephone Encounter - Deepika Schafer RN - 02/17/2023 10:48 AM EST F/u right cervical TPI given on 11/03/22 by Leonard DICKINSON. Pt reports 70% relief of pain. He is able to turn his head right and left much easier, which makes driving easier. Remaining pain is 3/10 intermittent throbbing right side neck radiating into right shoulder. Deniesnumbness/tingling. Pt is already scheduled for repeat injection on 03/05/23 and wishes to keep that appt for more painrelief. documented in this encounter Plan of Treatment Upcoming Encounters Date Type Department Care Team (Late st Contact Info) Description 03/05/2023 11:00 AM EST Office Visit Interventional Pain Center, [facility] [address] [place] [place] [address] Leonard [place] CRNP [address] [place] [address] 04/12/2023 10:00 AM EST Imaging Radiology [address], [place] [address] [facility] [place] [address] 04/20/2023 1:30 PM EST Office Visit Cardiology, [facility] [address] [place] [address] Ashley Perez CRNP [address] [place] [address] 07/30/2023 9:40 AM EDT Office Visit Family Practice [facility] [address] [facility] [place] [address] Roberto Duncan III, MD [address] [facility] [place] [address] Scheduled Procedures Name Priority Associated Diagnoses Date/Ti [...] exists Diabetic Eye Exam 06/20/2023 06/19/2022, , 10/19/2018, Additional history exists O2 ASSESSMENT COMPLETED IN [...] 03/29/2014, 04/22/2009 Zoster Vaccines Completed 01/09/2022, 10/22/2021 LUNG CANCER SCREENING - USE SMARTSET 10584 Completed 04/06/2022, 07/23/2017, 09/30/2016, Additional history exists Influenza Vaccine (FLU shot) Completed 12/2022, 12/01/2021, 12/27/2020, Additional history exists GARDASIL-HPV IMMUNIZATION SERIES Aged Out No longer eligible based on patient's age to complete this topic MENINGOCOCCAL (MENACTRA/MENVEO) Aged Out No longer eligible based on patient's age to complete this topic documented as of this encounter Medical Devices Not on filedocumented as of this encounter Care Teams Head Refrigeration Engineer Relationship Specialty Start Date End Date Roberto Duncan III, MD [address] [facility] [place] [address] PCP - General 03/12/01 documented as of this encounter
--- OUTSIDE RECORDS SUMMARY | 2023-08-10 06:21 | External Medical Summary | Summary of Care ---
Author Name Unknown Organization [facility] Address [address] [place] [address] Phone [phone] Care Team Providers Care Program Management Manager Name Role Phone Dakota PRASAD MD, Marislea Harkins Primary Care Provider [phone] Reason for Visit * Reason Comments Medication Refill Encounter Details Date Type Department Care Team (Late st Contact Info) Description 04/28/2023 Refill Family Practice [facility] 200 [facility] [place] [address] Marisela Tillman III, MD [address] [place] [address] Allergies No known active allergiesdocumented as of this encounter (statuses as of 04/29/2023) Medications Medication Sig Dispensed Refills Start Date [...] 03/27/2021 Active Additional Information Patient taking differently:2 [place] Each Nostril Daily(AM),As needed, Reported on 06/17/2022 [...] 4 Active Furosemide 20 MG Oral Tablet (Lasix)Indication [...] FOR WHEEZING 54 g 2 04/29/2023 Active Trelegy Ellipta 100-62.5-25 MCG/INH Aerosol Powder Breath Activated (fluticasone-umec lidinium-vilanter ol) Inhale by mouth 1 Puff in the morning. Rinse after. 180 Blister Dosing Unit 3 06/27/2021 4 Discontinue d(Refill) Albuterol Sulfate HFA 108 (90 Base) MCG/ACT Inhalation Aerosol Solution INHALE TWO PUFFS BY MOUTH FOUR TIMES A DAY NEEDED FOR WHEEZING 54 g 2 08/30/2021 4 Discontinue d(Refill) documented as of this encounter (statuses as of 04/29/2023) Active Problems Problem Noted Date Diagnosed Date Atherosclerosis of aorta 07/23/2022 Atherosclerosis of coronary artery of [place] heart without angina pectoris 07/23/2022 Anxiety and [...] as of this encounter (statuses as of 04/29/2023) Resolved Problems Problem Noted Date Diagnosed Date [...] as of this encounter (statuses as of 04/29/2023) Immunizations Name Administration Dates Next Due COVID-19 mRNA, LNP-s, No Pre serve, 2-Dose Series ([employer]) 01/29/2021,06/12/2020,05/15/2020 Pneumococcal Conjugate Vacc, 13 Valent (Prevnar) [...] encounter Miscellaneous Notes * Telephone Encounter - Shey Serrano RPh - 04/29/2023 9:17 AM ESTSigned Prescriptions: Disp Refills Trelegy Ellipta 100-62.5-25 MCG/ACT Aeroso*180 Bl*2 Sig: Inhale by mouth 1 Puff in the morning. Rinse after.Authorizing Provider: MARISELA TILLMAN III User: SHEY SERRANO Albuterol Sulfate HFA 108 (90 Base) MCG/AC*54 g 2 Sig: INHALE TWO PUFFS BY MOUTH FOUR TIMES A DAY NEEDED FOR WHEEZINGAuthorizing Provider: MARISELA TILLMAN III User: SHEY SERRANO documented in this encounter Plan of Treatment Upcoming Encounters Date Type Department Care Team (Late st Contact Info) Description 05/05/2023 10:45 AM EST Cardiac Studies Cardiac Studies, [facility] [place] [address] 05/11/2023 10:20 AM EST Office Visit Sleep Disorders, [facility] [address] [place] [address] Vidya Wong MD 400 [facility] [place] [address] 07/30/2023 9:40 AM EDT Office Visit [facility] 200 [facility] [place] [address] Marisela Tillman III, MD 200 [facility] [place] [address] 08/04/2023 8:00 AM EDT Office Visit Cardiology, [facility] [address] [place] [address] Ashley Perez CRNP 132 [facility] [place] [address] Scheduled Procedures Name Priority Associated Diagnoses Date/Ti [...] exists LUNG CANCER SCREENING - USE SMARTSET 50322 Completed 04/12/2023, 04/06/2022, 07/23/2017, Additional history exists GARDASIL-HPV IMMUNIZATION SERIES Aged Out No longer eligible based on patient's age to complete this topic MENINGOCOCCAL (MENACTRA/MENVEO) Aged Out No longer eligible based on patient's age to complete this topic documented as of this encounter Medical Devices Not on filedocumented as of this encounter Care Teams Program Management Manager Relationship Specialty Start Date End Date Marisela Tillman III, MD [address] [place] [address] PCP - General 03/12/01 documented as of this encounter
--- OUTSIDE RECORDS SUMMARY | 2023-08-10 06:21 | External Medical Summary | Summary of Care ---
Author Name Unknown Organization [facility] Address [address] [place] [address] Phone [phone] Care Team Providers Care Technology Teacher Name Role Phone Dakota PRASAD MD, Marisela Harkins Primary Care Provider [phone] Reason for Visit * Reason Comments Medication Refill Encounter Details Date Type Department Care Team (Late st Contact Info) Description 03/19/2023 Refill Family Practice [facility] 200 [facility] [place] [address] Marisela Tillman III, MD [address] [place] [address] Essential hypertension with goal blood pressure less than 140/90 Allergies No known active allergiesdocumented as of this encounter (statuses as of 03/19/2023) Medications Medication Sig Dispensed Refills Start Date End Date Status Meclizine HCl 25 MG Oral Tablet (Antivert) TAKE 1 TABLET BY MOUTH 3 TIMES DAILY NEEDED FOR DIZZINESS. 30 Tablet 0 03/10/2021 Active Fluticasone Propionate 50 MCG/ACT Nasal Suspension (Flonase)Indicati ons:Chronic frontal sinusitis Administer 2 Sprays into each nostril daily. 16 g 5 03/27/2021 Active Additional Information Patient taking differently:2 [place] Each Nostril Daily(AM),As needed, Reported on 06/17/2022 [...] FOR WHEEZING 54 g 2 08/30/2021 Active rOPINIRole HCl 2 MG Oral Tablet [...] 360 Tablet 1 02/02/2023 Active amLODIPine Besylate 10 MG Oral Tablet (Norvasc)Indicati ons:Essential hypertension with goal blood pressure less than 140/90 TAKE ONE TABLET BY MOUTH EVERY DAY IN THE MORNING 100 Tablet 2 03/19/2023 4 Active amLODIPine Besylate 10 MG Oral Tablet (Norvasc)Indicati ons:Essential hypertension with goal blood pressure less than 140/90 TAKE ONE TABLET BY MOUTH EVERY DAY IN THE MORNING 100 Tablet 2 04/27/2022 3 Discontinue d(Refill) documented as of this encounter (statuses as of 03/19/2023) Active Problems Problem Noted Date Diagnosed Date Atherosclerosis of aorta 07/23/2022 Atherosclerosis of coronary artery of [place] heart without angina pectoris 07/23/2022 Anxiety and [...] as of this encounter (statuses as of 03/19/2023) Resolved Problems Problem Noted Date Diagnosed Date [...] as of this encounter (statuses as of 03/19/2023) Immunizations Name Administration Dates Next Due COVID-19 mRNA, LNP-s, No Pre serve, 2-Dose Series ([employer]) 01/29/2021,06/12/2020,05/15/2020 Pneumococcal Conjugate Vacc, 13 Valent (Prevnar) [...] encounter Miscellaneous Notes * Telephone Encounter - Mateus Villa [facility] - 03/19/2023 12:44 PM ESTSigned Prescriptions: Disp Refills amLODIPine Besylate 10 MG Oral Tablet (Nor*100 Ta*2 Sig: TAKE ONE TABLET BY MOUTH EVERY DAY IN THE MORNINGAuthorizing Provider: MARISELA TILLMAN III User: MATEUS KO documented in this encounter Plan of Treatment Upcoming Encounters Date Type Department Care Team (Late st Contact Info) Description 03/25/2023 7:40 AM EST Office Visit Family Practice [facility] [place] [address] [place], [place] [address] Margarette Goodman MD [address] [place] [address] 04/12/2023 10:00 AM EST Imaging Radiology [address], [address] [place] [address] 04/20/2023 1:30 PM EST Office Visit Cardiology, [facility] [address] [place] [address] Ashley Perez CRNP [address] [place] [address] 07/30/2023 9:40 AM EDT Office Visit Family Practice [facility] 200 [facility] [place] [address] Marisela Tillman III, MD 200 [facility] [place] [address] Scheduled Procedures Name Priority Associated Diagnoses Date/Ti [...] 10/22/2021 LUNG CANCER SCREENING - USE SMARTSET [address] Completed 04/06/2022, 07/23/2017, 09/30/2016, Additional history exists [...] 140/90 documented in this encounter Care Teams Technology Teacher Relationship Specialty Start Date End Date Marisela Tillman III, MD [address] [place], [place] [address] PCP - General 03/12/01 documented as of this encounter
--- OUTSIDE RECORDS SUMMARY | 2023-08-10 06:21 | External Medical Summary | Summary of Care ---
Author Name Unknown Organization [facility] Address [address] [place] [address] Phone [phone] Care Team Providers Care Inorganic Chemical Technician Name Role Phone Dakota PRASAD MD, Roberto Harkins Primary Care Provider [phone] Reason for Visit * Reason Comments Procedure Right cervical TPI Pain Encounter Details Date Type Department Care Team (Late st Contact Info) Description 03/10/2023 11:30 AM EST Office Visit Interventional Pain Center, [facility] [address] [place] [address] Leonard [place] CRNP [address] [place] [address] Cervical myofascial pain syndrome* Allergies No known active allergiesdocumented as of this encounter (statuses as of 03/10/2023) Medications Medication Sig Dispensed Refills Start Date End Date Status Meclizine HCl 25 MG Oral Tablet (Antivert) TAKE 1 TABLET BY MOUTH 3 TIMES DAILY NEEDED FOR DIZZINESS. 30 Tablet 0 03/10/2021 Active Fluticasone Propionate 50 MCG/ACT Nasal Suspension (Flonase)Indicatio ns:Chronic frontal sinusitis Administer 2 Sprays into each nostril daily. 16 g 5 03/27/2021 Active Additional Information Patient taking differently:2 [place] Each Nostril Daily(AM),As needed, Reported on 06/17/2022 [...] FOR ANXIETY 360 Tablet 1 02/02/2023 Active Hospital, Clinic, or Other Facility Administered Medication Ordered Dose Route Frequency Start Date End Date Status bupivacaine HCl (Sensorcaine) 0.25 % (PF) inj 10 mgIndications:Cervica l myofascial pain syndrome 10 mg IM ONCE 03/10/2023 03/10/2023 Discontinued Triamcinolone Acetonide (Kenalog) 40 MG/ML inj 40 mgIndications:Cervica l myofascial pain syndrome 40 mg IM ONCE 03/10/2023 03/10/2023 Discontinued documented as of this encounter (statuses as of 03/10/2023) Active Problems Problem Noted Date Diagnosed Date Atherosclerosis of aorta 07/23/2022 Atherosclerosis of coronary artery of [place] heart without angina pectoris 07/23/2022 Anxiety and [...] as of this encounter (statuses as of 03/10/2023) Resolved Problems Problem Noted Date Diagnosed Date [...] as of this encounter (statuses as of 03/10/2023) Immunizations Name Administration Dates Next Due COVID-19 mRNA, LNP-s, No Pre serve, 2-Dose Series ([employer]) 01/29/2021,06/12/2020,05/15/2020 Pneumococcal Conjugate Vacc, 13 Valent (Prevnar) [...] as of this encounter Progress Notes * Leonard [place] CRNP - 03/10/2023 11:27 AM EST Pt. Not having a lot of pain, will reschedule when pain returns documented in this encounter Nursing Notes * Deepika Schafer RN - 03/10/2023 11:13 AM EST Pt arrived for right cervical TPI (repeat from 11/03/22). While documenting pain assessment, pt states he feels he does not need the injection at this time. Pain level is down to 2/10. Pt's procedure cancelled for today. He will contact pain clinic for repeat injection when needed. documented in this encounter Plan of Treatment Upcoming Encounters Date Type Department Care Team (Late st Contact Info) Description 04/12/2023 10:00 AM EST Imaging Radiology [facility] 132 [facility] [place] [address] 04/20/2023 1:30 PM EST Office Visit Cardiology, [facility] 132 [facility] [place] [address] Ashley Perez CRNP 132 [facility] [place] [address] 07/30/2023 9:40 AM EDT Office Visit Family Practice [facility] [address] [place] [address] Roberto Duncan III, MD [address] [place] [address] Scheduled Procedures Name Priority Associated Diagnoses Date/Ti [...] COPD 07/16/2023 07/15/2022, 01/15/2016 GFR 07/21/2023 07/20/2022, 06/07/2021, 04/01/2021, Additional history exists HbA1c 07/28/2023 01/27/2023, 050 03/2022, 04/06/2022, Additional history exists B-12 01/30/2024 [...] 10/22/2021 LUNG CANCER SCREENING - USE SMARTSET [id number] Completed 04/06/2022, 07/23/2017, 09/30/2016, Additional history exists [...] and myositis, unspecified documented in this encounter Care Teams Inorganic Chemical Technician Relationship Specialty Start Date End Date Roberto Duncan III, MD 200 [facility] [place] [address] PCP - General 03/12/01 documented as of this encounter
--- OUTSIDE RECORDS SUMMARY | 2023-08-10 06:21 | External Medical Summary | Summary of Care ---
Author Name Unknown Organization [facility] Address [address] [place] [address] Phone [phone] Care Team Providers Care Security Administrator Name Role Phone Dakota PRASAD MD, Roberto Harkins Primary Care Provider [phone] Reason for Referral * Evaluate & Treat - Unlimited Visits (Within 10 days (routine)) - Authorized Specialty Diagnoses / Procedures Referred By Contmaryellen t Referred To Contact Sleep Medicine / Sleep Disorders Diagnoses Pericardial effusion Essential hypertension with goal blood pressure less than 140/90 Ashley Perez CRNP [address] [place] [address] Referral ID Status Reason Start Date Expiration Date Visits Requested Visits Authorized [id number] Authorized Specialty Services Required 04/20/2023 2 2 Question Answer Referral Priority Within 10 days (routine) Where should this appointment be scheduled? [facility] CAD SLEEP MED ADULT REFERRAL Sleep Apnea Testing and Management Does the patient snore and/or gasp at night or has been told they stop breathing at night? Yes Comments Known ANNEL, needs mask evaluated * Precert (Within 10 days (routine)) - Authorized Specialty Diagnoses / Procedures Referred By Contmaryellen t Referred To Contact Cardiac Studies Diagnoses Pericardial effusion Procedures ECHO, COMPLETE (2D), TRANS-THORACIC Ashley Perez CRNP [address] [place] [address] Referral ID Status Reason Start Date Expiration Date V isits Requested Visits Authorized [id number] Authorized Precert 04/20/2023 999 999 Reason for Visit * Reason Comments Follow Up Encounter Details Date Type Department Care Team (Latest Contact Info) Description 04/20/2023 1:30 PM EST Office Visit Cardiology, [facility] [address] [place] [address] Ashley Perez CRNP [address] [place] [address] Shortness of breath*; Pericardial effusion; Essential hypertension with goal blood pressure less than 140/90; Dyslipidemia, goal LDL below 100; COPD, group A, by GOLD 2017 classification ([facility]); Obstructive sleep apnea of adult Allergies No known active allergiesdocumented as of this encounter (statuses as of 04/20/2023) Medications Medication Sig Dispensed Refills Start Date [...] 03/27/2021 Active Additional Information Patient taking differently:2 Ellerbe Each Nostril Daily(AM),As needed, Reported on 06/17/2022 [...] the morning. 100 Tablet 3 04/20/2023 Active amLODIPine Besylate 10 MG Oral Tablet (Norvasc)Indicati ons:Essential hypertension with goal blood pressure less than 140/90 TAKE ONE TABLET BY MOUTH EVERY DAY IN THE MORNING 100 Tablet 2 03/19/2023 4 Discontinue d(Refill) documented as of this encounter (statuses as of 04/20/2023) Active Problems Problem Noted Date Diagnosed Date Atherosclerosis of aorta 07/23/2022 Atherosclerosis of coronary artery of [place] heart without angina pectoris 07/23/2022 Anxiety and [...] as of this encounter (statuses as of 04/20/2023) Resolved Problems Problem Noted Date Diagnosed Date [...] as of this encounter (statuses as of 04/20/2023) Immunizations Name Administration Dates Next Due COVID-19 [...] Sign Reading Time Taken Comments Blood Pressure 134/76 04/20/2023 1:25 PM EST Pulse 68 04/20/2023 1:25 PM EST Temperature - - Respiratory Rate 16 04/20/2023 1:25 PM EST Oxygen Saturation - - Inhaled Oxygen Concentration - - Weight 100.2 kg (221 lb) 04/20/2023 1:25 PM EST Height - - Body Mass Index 30.82 11/03/2022 1:01 PM EDT documented in this encounter Patient Instructions * Patient Instructions* Ashley Perez CRNP - 04/20/2023 1:49 PM EST TO DO: Diuretic Titration Protocol: Double dose of Furosemide x3 days. Take 40 mg (2 tablets) of Furosemide on Wed, , Wednesday On resume normal maintenance dose of Furosemide 20 mg daily Check blood pressure and heart rate 2 hours after morning medications 2-3 times per week, or if feeling poorly. Record these readings and bring to follow up. Call with any concerns: [facility] Cardiology number: (ask to be connected to [facility] cardiology) documented in this encounter Progress Notes * Ashley Perez CRNP - 04/20/2023 1:30 PM EST Cardiology Outpatient Visit 04/20/2023 Primary Application Support Engineer: Dr. West Past medical history: Abnormal echo suggestive of wall motion abnormalities of the distal septum and apex Negative DSE with frequent PVCs- no WMA, 09/05/2021-- med [facility] recommended Right bundle branch block, left anterior fascicular block, bifascicular block Former tobacco use with COPD, following with Pulmonary Type 2 Diabetes Obstructive sleep apnea, CPAP HPI 72-year-old male presenting to the cardiology office today in routine follow-up. Was last evaluatedby Dr. West approximately 6 months ago. Today the patient presents with concerns regarding worsening shortness of breath. Notes when he lays down to sleep at night he will become very dyspneic. Symptoms are relieved by sitting up and taking an antihistamine pill. Has some mild lower extremity edema and abdominal bloating. He has not beenable to wear his CPAP because the mask has not been fitting appropriately and/or pressures are too high. Denies any chest pain. No palpitations. Denies lightheadedness or dizziness. No fever, chills,cough, hematochezia, melena, or hemoptysis. He states he is compliant with all medications, and offers no side effects. Current Outpatient Medications Medication Sig Dispense Refill Fluticasone Propionate 50 MCG/ACT Nasal Suspension (Flonase) Administer 2 Sprays into each nostril daily. (Patient taking differently: Administer 2 Sprays into each nostril in the morning. As needed.) 16 g 5 Trelegy Ellipta 100-62.5-25 MCG/INH Aerosol Powder Breath Activated (uiqpuvdgozi-pmefbwhltoql-jskfxczeob) Inhale by mouth 1 Puff in the morning. Rinse after. (Patient taking differently: Inhale 1 Puff by mouth in the morning. Rinse after.) 180 Blister Dosing Unit 3 Albuterol Sulfate HFA 108 (90 Base) MCG/ACT Inhalation Aerosol Solution INHALE TWO PUFFS BY MOUTH FOUR TIMES A DAY NEEDED FOR WHEEZING 54 g 2 rOPINIRole HCl 2 MG Oral Tablet (Requip) TAKE ONE TABLET BY MOUTH EVERY DAY BEFORE BEDTIME 100 Tablet 1 Tamsulosin HCl 0.4 MG Oral [...] DAY IN THE MORNING 300 Tablet 1 Lisinopril 40 MG Oral Tablet [...] mouth in the morning. 100 Tablet 3 Meclizine HCl 25 MG Oral Tablet (Antivert) TAKE 1 TABLET BY MOUTH 3 TIMES DAILY NEEDED FOR DIZZINESS. (Patient not taking: Reported on 04/20/2023) 30 Tablet 0 Naproxen 500 MG Oral Tablet (Naprosyn) TAKE ONE TABLET BY MOUTH TWICE A DAY WITH MORNING AND EVENING MEALS (Patient taking differently: Takes once per day) 200 Tablet 1 No current facility-administered medications for this visit. Past Medical History: Diagnosis Date Benign neoplasm of colon 02/02/12 COLONOSCOPY FLEXIBLE PROXIMAL DIAGNOSTIC performed by Patricia Sanders DO at ENDOSCOPY [facility],HYPERPLASTIC POLYPS REPEAT COLONOSCOPY IN 10 YEARS Diabetic eye exam (HCC) 05/05/2011 [facility], no retinopathy Diabetic eye exam (HCC) 05/11/13 no retinopathy GERD (gastroesophageal reflux disease) ANNEL (obstructive sleep apnea) Past Surgical History: Procedure Laterality Date C-/T-SPINE PARAVERTEBRAL FACET INJ, 1 LEVEL Right 12/01/2021 C-/T-SPINE PARAVERTEBRAL FACET INJ, 1 LEVEL performed by Shalonda Whittaker MD at OR [facility] C-/T-SPINE PARAVERTEBRAL FACET INJ,2 LEVELS Right 12/01/2021 C-/T-SPINE PARAVERTEBRAL FACET INJ, 2 LEVELS performed by Shalonda Whittaker MD at OR [facility] C-/T-SPINE PARAVERTEBRAL FACET INJ,3 LEVELS Right 12/01/2021 C-/T-SPINE PARAVERTEBRAL FACET INJ, 3 OR MORE LEVELS performed by Shalonda Whittaker MD at OR [facility] COLONOSCOPY, DIAGNOSTIC (RECTUM) 02/02/2012 COLONOSCOPY FLEXIBLE PROXIMAL DIAGNOSTIC performed by Patricia Sanders DO at ENDOSCOPY [facility],HYPERPLASTIC POLYPS REPEAT COLONOSCOPY IN 10 YEARS COLONOSCOPY, DIAGNOSTIC (RECTUM) 07/15/2022 diverticulosis in sigmoid colon / no specimens collected / recall 5 to 10 years/ COLONOSCOPY FLEXIBLE PROXIMAL DIAGNOSTIC performed by Patricia Sanders DO at ENDOSCOPY [facility] COLORECTAL CANCER SCREEN; COLON 01/31/2002 sigmoid diverticulosis, normal-Dr. Mandetta INFORMATION 01/23/1992 cyst excision PROSTATE BIOPSY 01/24/2018 done in office, Dr Donnelly Social History Tobacco Use Smoking status: Former Packs/day: 1.00 Years: 40.00 Additional pack years: 0.00 Total pack years: 40.00 Types: Cigarettes Start date: 1964 Quit date: 05/06/2016 Years since quittin.9 Smokeless tobacco: Never Vaping Use Vaping Use: Never used Substance Use Topics Alcohol use: Yes Comment: 1/daily Drug use: No Review of patient's allergies indicates: No Known Allergies Review of Systems: See HPI for pertinent positives. All others negative, other than those noted in HPI. Physical Exam BP 134/76 | Pulse 68 | Resp 16 | Wt 100.2 kg (221 lb) | BMI 30.82 kg/m | BSA 2.24 m General: No acute distress. A+Ox3. HEENT: Normocephalic. Atraumatic. Conjunctiva and sclera clear. NECK: No carotid bruits. No JVD. Carotid upstrokes are brisk. Heart: RRR. S1 and S2 noted without murmur, rubs, gallops. PMI non displaced. Lungs: Diminished lung sounds. No wheezing rhonchi or rales. Abdomen: Normal bowel sounds. Taut. Nontender. No masses or organomegaly. Extremities: +2 BLLE pitting edema No clubbing or cyanosis. Pulses: radial=2/4, posterior tibial=2/4, dorsalis pedis = 2/4. NEURO: No focal deficits. PSYCH: Normal. Lab data/imaging study review: DSE 09/05/2021 The primary indication after review was deemed appropriate and the examination was performed. The stress echo is negative for inducible ischemia. No sustained arrhythmias but frequent PVCs. Normal heart rate blood pressure response to dobutamine infusion. Echo 06/26/2021 Calculated LV ejection Fraction = 55% (bi-plane method of discs). There is a moderate sized apical and septal wall motion abnormality with mild hypokinesis of the segments. The right ventricular cavity size is normal. The right ventricular systolic function is normal. Mild mitral regurgitation is present. The aortic root is mildly enlarged. The proximal ascending thoracic aorta is mildly enlarged A small posterior loculated pericardial effusion is present. Impression/Plan: 1. Shortness of breath 2. Pericardial effusion Patient with chronic shortness of breath. Source likely multifactorial given underlying COPD however patient does appear mildly hypervolemic on exam with mild lower extremity edema and abdominal bloating. + orthopnea. Increase Lasix to 40 mg daily x3 days then reduce back down to 20 mg daily thereafter Reduce amlodipine to 5 mg daily, future considerations of adding spironolactone Pericardial effusion noted on recent CT of the chest--appears chronic however will update resting echocardiogram for assessment. Will be able to obtain LV systolic function and valvular status. 3. Essential hypertension with goal blood pressure less than 140/90 Controlled. Reducing amlodipine to 5 mg daily due to fluid retention Continue lisinopril 40 mg daily As above consider starting spironolactone 4. Dyslipidemia, goal LDL below 100 LDL 89, controlled 1. Continue atorvastatin 80 mg daily-- repeat fasting lipid panel with next blood draw. 5. COPD, group A, by GOLD 2017 classification (HCC) On multiple inhalers. Follow with pulmonary as scheduled. 6. Obstructive sleep apnea of adult Noncompliant on CPAP due to intolerance, recommend following up with sleep medicine physician for titration. Patient Instructions TO DO: Diuretic Titration Protocol: Double dose of Furosemide x3 days. Take 40 mg (2 tablets) of Furosemide on Wed, , Wednesday On resume normal maintenance dose of Furosemide 20 mg daily Check blood pressure and heart rate 2 hours after morning medications 2-3 times per week, or if feeling poorly. Record these readings and bring to follow up. Call with any concerns: [facility] Cardiology number: (ask to be connected to [facility] cardiology) The patient agrees to the above plan and will call with additional questions or concerns. ER with all emergencies advised. Follow-up: Return in about 3 months (around 07/20/2023). | Check-out note: Echo at . Print instructions. Reschedule sleep med appt at -- referral placed. I spent a total of 40 minutes on the date of service in preparation, delivery, and documentation ofthe care provided to Dickson Diamond excluding any time spent in the performance of separately billed services. ALOK Adorno, Department of Cardiology This chart was completed in part utilizing [email or web address] Speech Voice Recognition Software. Grammatical errors, random word insertions, prounoun errors, and incomplete sentences are an occasional consequence of this system due to software limitations, ambient noise, and hardware issues. Any formal questions or concerns about the content, text, or information contained within the body of this dictation should be directly addressed to the provider for clarification. documented in this encounter Nursing Notes * Salbador Gomez RN - 04/20/2023 1:24 PM EST Examination Room: room 7 Name: Dickson Diamond Date of : (1950). Reason for Visit: for follow up Interim Hospitalization(s): denies Problems/Concerns: denies Chest Pain/SOB: gets SOB/TAMEZ both denies chest pain [facility] Discussed: Yes [facility] is a way you can talk to your provider online through e-mail. Would you like to sign up? I can activate it for you? ALREADY ACTIVE Patient was instructed to not get up on the exam table until directed and assisted by their provider; patient is to remain seated in the chair/ wheelchair/ exam table for fall prevention and safety reasons. Patient is aware to have assistance to step down off exam table with personnel. Patient voiced full comprehension of instructions. documented in this encounter Plan of Treatment Upcoming Encounters Date Type Department Care Team (Late st Contact Info) Description 05/05/2023 10:45 AM EST Cardiac Studies Cardiac Studies, [facility] [address] [facility] [place] [address] 05/11/2023 10:20 AM EST Office Visit Sleep Disorders, [facility] [address] [place] [address] Vidya Wong MD [address] [place] [address] 07/30/2023 9:40 AM EDT [facility] [address] [facility] [address] Roberto Duncan III, MD [address] [place], [place] [address] 08/04/2023 8:00 AM EDT Office Visit Cardiology, [facility] [address] [place] [address] Ashley Perez CRNP [address] [place] [address] Scheduled Orders Name Type Priority Associated Diagnoses Orde r Schedule ECHO, COMPLETE (2D), TRANS-THORACIC Echocardiology Routine Pericardial effusion Expected: 04/20/2023, Expires: 04/20/2024 Scheduled Procedures Name Priority Associated Diagnoses Date/Ti me COLONOSCOPY FLEXIBLE PROXIMA L DIAGNOSTIC Recall Screening for colon cancer Scheduled Referrals Name Type Priority Associated Diagnoses Orde r Schedule SLEEP MEDICINE REFERRAL OP Referral Within 10 days (routine) Pericardial effusion Essential hypertension with goal blood pressure less than 140/90 Ordered: 04/20/2023 Health Maintenance Due Date Last Done Comments [...] exists LUNG CANCER SCREENING - USE SMARTSET [id number] Completed 04/12/2023, 04/06/2022, 07/23/2017, Additional history exists GARDASIL-HPV IMMUNIZATION SERIES Aged Out No longer eligible based on patient's age to complete this topic MENINGOCOCCAL (MENACTRA/MENVEO) Aged Out No longer eligible based on patient's age to complete this topic documented as of this encounter Medical Devices Not on filedocumented as of this encounter Visit Diagnoses Diagnosis Shortness of breath- Primary Pericardial effusion Unspecified disease of pericardium Essential hypertension with goal blood pressure less than 140/90 Dyslipidemia, goal LDL below 100 Other and unspecified hyperlipidemia COPD, group A, by GOLD 2017 classification (HCC) Obstructive sleep apnea of adult Obstructive sleep apnea (adult) (pediatric) documented in this encounter Care Teams Security Administrator Relationship Specialty Start Date End Date Roberto Duncan III, MD [address] [place] [address] PCP - General 03/12/01 documented as of this encounter"
[2023-08-10] MEDS: PERFLUTREN LIPID MICROSPHERE (DEFINITY) IV ONE (06:59)
[2023-08-10] MEDS: rOPINIRole HCL 2 MG TABLET PO SCH (08:23)
[2023-08-10] MEDS: ATORVASTATIN 40 MG TAB PO SCH (08:23)
[2023-08-10] MEDS: amLODIPine BESYLATE 5 MG TAB PO SCH (08:23)
[2023-08-10] MEDS: TAMSULOSIN HCL 0.4 MG CAP PO SCH (08:24)
[2023-08-10] MEDS: FLUTICASONE FUROATE 100MCG 14 PUFFS/INHALER INH SCH (08:25)
[2023-08-10] MEDS: UMECLIDINIUM/VILANTEROL 62.5/25MCG 7 PUFFS/INHALER INH SCH (08:25)
[2023-08-10] MEDS: ENOXAPARIN INJ 40 MG/0.4 ML SYR SQ SCH (08:26)
--- NOTE | 2023-08-10 08:36 | Cardiology Consultation ---
Date of Consultation August 10, 2023 Assessment & Plan (1) Second degree AV block: (2) Hypokalemia: (3) Elevated lactic acid level: Plan Assessment: 73 year old male presents with profound fatigue and intermittent vertigo like symptoms. Ongoing for months, but significantly worse in the past 4 days. found to have 2nd degree AV block on telemetry during course of admission with request for cardiology evaluation. 1. Second degree AV Block: 2. Hypokalemia -Review of telemetry shows SR with 1st degree at baseline; however, patient demonstrates prolonged episodes of varying 2nd degree AV Block, both Mobitz I (Wenckebach) and Mobitz II with a 2:1 conduction. -Troponin negative x1 -Echocardiogram pending to assess overall structure and function for contributing etiology -Serum K just below target. currently being supplemented through IV fluids. maintain serum K >4.0 and Serum Mag > 2.0 -Lyme negative -patient is currently NPO while awaiting echo results, and will confer with EP for possible PPM placement. -Continue to monitor closely on Telemetry, Defib pads in pace in the event emergency pacing is required. Atropine order in place if needed. -Lactate elevated with no other significant abnormalities. Provide gentle hydration and await blood cultures. 3. Elevated lactic acid level -Unclear etiology and patient remains asymptomatic with no acute infectioius symptoms. -Continue with gentle IV hydration -Urine negative. -Afebrile -Blood cultures pending Case has been discussed with Dr. Schmidt. Further recommendations regarding plan of care as per his assessment. I spent a total of 40 minutes on the date of service in preparation, delivery, documentation of the care provided to the patient excluding any time spent in the performance of separately billed services. ALOK [facility] Supervising Physician Co-Signing Physician Notes I have personally performed a history and physical examination on the patient. I have reviewed the advance practitioner's documentation, and I agree with, and take responsibility for the plan of care. 73 male presented to hospital with several days of profound fatigue, dizziness, lightheadedness, and near syncope. Prior to patient's symptoms he is been feeling poorly for several months. Second-degree AV block Mobitz type I as well as episodes of 2-1 AV block recorded overnight. Baseline ECG with underlying conduction disease including first-degree AV block, right bundle branch block, and intermittent left anterior fascicular block. Lyme screen and TSH within normal limits. Mild hypokalemia noted on admission. No reversible cause of bradycardia/heart block identified. 2D echocardiogram demonstrating moderate left ventricular hypertrophy with preserved LV systolic function, and a mild, loculated anterior pericardial effusion with moderate organization. Echocardiogram demonstrating moderate concentric left ventricular hypertrophy and a small, loculated anterior pericardial effusion. Recommend further evaluation for possible amyloidosis as an outpatient with SPEP, UPEP, free light chains, and PYP scan. I had a long discussion with the patient regarding his underlying conduction disease, evidence of second-degree AV block, and worsening symptoms. Risk versus benefit of permanent pacemaker implantation reviewed. Patient agreeable to proceed. Case discussed with electrophysiology. N.p.o. except medications after midnight for permanent pacemaker implantation in a.m. 08/11/2023. I spent a total of 40 minutes on the date of service in preparation, delivery, and documentation of the care provided to this patient, excluding any time spent in the performance of separately billed services. History of Present Illness Reason for Consultation: 2nd degree AVB Requesting Physician: Coty espinosa Attending Physician: Poncho Jackson MD History of Present Illness HPI:Patient is a 73 year-old male that presented to the ED with 4 day history of profound fatigue, vertigo symptoms, poor appetite and intermittent episodes of diaphoreses. which prompted him to present for further evaluation. Prior to this, patient states that he has been feeling poorly for a few months, but nothing as intense as noted above. Denies any recent URI symptoms, no N/V/D, no recent fevers or sick contacts. He does endorse no bowel movements in 3-4 days. Chest x-ray negative for acute process Initial EKG NSR with no acute changes. Troponin negative x1 CT-Abd and pelvis negative for acute process. Serum K 3.3 elevated lactate, normal lipase and procalcitonin Blood cultures pending Cardiology has been consulted as upon patient's transfer from the ED to the hospital room, his heart rate was in the 30's. Nurse had reported that patinet was asymptomatic, but had also vomited. EKG obtained demonstrating SR with 2nd degree AVB 2:1 conduction, left axis deviation, Right BBB Repeat EKG obtained at 0341 shows SB with 1st degree AVB, incomplete Right BBB PMHx: 1. Abnormal echo suggestive of wall motion abnormalities of the distal septum and apex a. Negative DSE with frequent PVCs- no WMA, 09/05/2021-- med mgmt recommended 2. Right bundle branch block, left anterior fascicular block, bifascicular block 3. Former tobacco use with COPD, following with Pulmonary 4. Type 2 Diabetes 5. Obstructive sleep apnea, CPAP Primary mold yard supervisor: Dr. West/ALOK Turcios Upon seeing patient today, he is resting comfortably in bed. Review of telemetry demonstrates a Sinus Rhythm with 1st degree AVB at time of exam. Review of full disclosure and trend shows that patient demonstrated significant bradycardia overnight with rates in the 30's intermittent 2nd degree with varying Mobitz I and Mobitz II with 2:1 conduction. Patient denies any acute illness, was awake at time of events and asymtomatic. He denies any known tick bites, but [place] and has been exposed multiple times. blood cultures pending Allergies Allergy/AdvReac Type Severity Reaction Status Date / Time No Known Allergies Allergy Unverified 08/09/23 19:21 Home Medications Medication Instructions Recorded Confirmed Type albuterol sulfate 90 mcg/actuation 2 puff inhalation Q6H PRN Wheezing 08/09/23 08/09/23 History aerosol inhaler amlodipine 5 mg tablet 5 mg PO QAM 08/09/23 08/09/23 History atorvastatin 80 mg tablet 80 mg PO QAM 08/09/23 08/09/23 History fluticasone fur. 100 mcg-umeclid 1 inh inhalation QAM 08/09/23 08/09/23 History 62.5 mcg-vilant 25 mcg inhalat.powder (Trelegy Ellipta) fluticasone propionate 50 1 spray intranasal DAILY PRN 08/09/23 08/09/23 History mcg/actuation nasal Allergy Symptoms spray,suspension furosemide 20 mg tablet 20 mg PO QAM 08/09/23 08/09/23 History hydrochlorothiazide 12.5 mg capsule 12.5 mg PO QAM 08/09/23 08/09/23 History lisinopril 40 mg tablet 40 mg PO QAM 08/09/23 08/09/23 History metformin 500 mg tablet,extended 300 mg PO QAM 08/09/23 08/09/23 History release 24 hr multivitamin 1 tab PO QAM 08/09/23 08/09/23 History ropinirole 2 mg tablet 2 mg PO QAM 08/09/23 08/09/23 History tamsulosin 0.4 mg capsule 0.4 mg PO QAM 08/09/23 08/09/23 History Patient History Social History Smoking Status: Never smoker Tobacco Type: Cigarettes Hx Alcohol Use: No Hx Substance Use: No Preferred Language: Occitan Communication Ability: Effective Watermaster Required: No Beliefs That Will Affect Care: None Current Living Situation: Significant Other Other Information That Helps Us Care for You: No Feels Safe at Home: Yes Safety Concerns: Feels Safe At This Time Assistive Devices: CPAP and Oxygen - at Night Review of Systems Constitutional: as per Subjective / HPI, + sweats, + fatigue and + weakness Ear, Nose, Mouth, Throat: + dizziness Respiratory: as per Subjective / HPI Cardiovascular: no chest pain, no dyspnea, no dyspnea at rest, no dyspnea on exertion, no syncope and no edema Genitourinary: + as per Subjective / HPI Musculoskeletal: as per Subjective / HPI Integumentary: as per Subjective / HPI Neurologic: as per Subjective / HPI Psychiatric: as per Subjective / HPI Physical Exam Constitutional: well developed and well nourished; no acute distress and not ill appearing Neck: normal visual inspection and trachea midline Respiratory: normal respiratory effort, lungs clear to auscultation Cardiovascular: Rate/Rhythm: regular rate, regular rhythm and + bradycardic (intermitt 2nd degree AVB, varying Mobitz I and II 2:1) Heart Sounds: normal S1 and normal S2; no murmur Vessels: dorsalis pedis pulses present; no JVD Skin: no rashes, warm and dry Psychiatric: A+Ox3, euthymic affect Results & Data Vital Signs (Past 12 Hours) Vital Signs Temp Pulse Pulse Pulse Resp BP BP 08/10/23 06:24 61 14 08/10/23 05:00 58 L 12 08/10/23 04:00 56 L 17 08/10/23 03:00 36.6 C 68 17 08/10/23 02:48 47 L 20 08/10/23 02:07 33 L 08/10/23 01:44 31 L 08/10/23 00:00 08/09/23 23:51 36.6 C 66 20 155/81 H 08/09/23 23:39 35 L 08/09/23 22:32 08/09/23 21:00 72 18 175/87 H BP Pulse Ox O2 Del Method O2 Flow Rate 08/10/23 06:24 137/76 96 Nasal Cannula 2 08/10/23 05:00 161/79 H 95 Nasal Cannula 2 08/10/23 04:00 150/80 H 95 Nasal Cannula 2 08/10/23 03:00 158/64 H 95 Nasal Cannula 2 08/10/23 02:48 149/79 H 96 Nasal Cannula 2 08/10/23 02:07 08/10/23 01:44 08/10/23 00:00 Nasal Cannula 2 08/09/23 23:51 96 Nasal Cannula 2 08/09/23 23:39 08/09/23 22:32 Nasal Cannula 2 08/09/23 21:00 95 Nasal Cannula 2 Laboratory Results Cardiac Enzymes 08/09/23 Range/Units 15:52 AST 36 (13-39) U/L Troponin I High Sens 8.2 (0-20) pg/ml Coagulation 08/09/23 Range/Units 15:52 PT 10.9 (9.0-12.0) Seconds CBC 08/09/23 08/10/23 Range/Units 15:52 04:51 WBC 5.66 4.80 (4.8-10.8) K/ul RBC 4.89 4.07 L (4.70-6.10) M/uL Hgb 15.1 12.6 L (14.0-18.0) g/dl Hct 43.8 36.6 L (42.0-52.0) % Plt Count 203 180 (130-400) K/uL Neut # (Auto) 3.56 3.00 (1.40-6.50) K/uL Lymph # (Auto) 1.17 L 1.05 L (1.20-3.40) K/uL Craig # (Auto) 0.82 H 0.62 H (0.11-0.59) K/uL Eos # (Auto) 0.05 0.07 (0.00-0.50) K/uL Baso # (Auto) 0.04 0.04 (0.00-0.20) K/uL Comprehensive Metabolic Panel 08/09/23 08/10/23 Range/Units 15:52 04:51 Sodium 141 139 (136-145) mmol/L Potassium 3.3 L 4.3 D (3.5-5.1) mmol/L Chloride 101 108 H (98-107) mmol/L Carbon Dioxide 30 26 (21-32) mmol/L BUN 22 20 (6-23) mg/dl Creatinine 1.08 0.91 (0.6-1.4) mg/dl Glucose 127 H 111 H (70-99(Fasting)) mg/dl Calcium 10.0 8.9 (8.6-10.3) mg/dl AST 36 (13-39) U/L ALT 37 (7-52) U/L Alkaline Phosphatase 71 (34-104) U/L Total Protein 7.3 (6.0-8.3) gm/dl Albumin 4.4 (3.4-5.0) gm/dl Intake and Output 08/09/23 08/10/23 08/10/23 22:59 06:59 14:59 Intake Total 1999 2866.667 866.667 / 2866.667 Output Total 250 / 250 Balance 1999 / 2616.667 616.667 / 2616.667 Intake: IV 1999 2626.667 626.667 / 2626.667 Lactated Ringer's 1,000 ml @ 60 526.667 / 526.667 mls/hr IV .[id number] ONE Rx#: [id number] Magnesium Sulfate / D5w 1 gm In 100 / 100 100 ml @ 50 mls/hr IV ONE ONE Rx#:[id number] Sodium Chloride 0.9% 1,000 ml @ 1999 999 mls/hr IV .Q1H1M ONE Rx#: [id number] Oral 0 / 240 240 / 240 Output: Urine 250 / 250 # Bowel Movements 0 / 0 Other: Weight 93.5 kg 104 kg Weight Measurement Method Built in [facility] Diagnostic Findings OP Echocardiogram obtained from [facility] 05/05/23: LVEF normal at 55-59%. Moderate concentric LVH noted. Trivial MR, Mild TR. Aortic root and prox ascending aorta mildly enlarged at 4.0 cm-- will continue to monitor Small loculated pericardial effusion, chronic. No tamponade. -- stable.
[2023-08-10] MEDS ORDERED: lisinopril 40 MG TAB PO SCH (09:00)
--- OUTSIDE RECORDS SUMMARY | 2023-08-10 11:15 | External Medical Summary | Summary of Care ---
Author Name Unknown Organization [facility] Address [address] [place] [address] Phone [phone] Care Team Providers Care Flue Gas Analyst Name Role Phone Dakota PRASAD MD, Roberto Harkins Primary Care Provider [phone] Reason for Visit * Reason Comments Procedure Right cervical TPI Pain Right side neck radi ating into right trapezius/shoulder. Intermittent aching pain. Denies numbness/tingling/burning. Ongoing, no trauma. Encounter Details Date Type Department Care Team (Late st Contact Info) Description 06/21/2023 1:30 PM EDT Office Visit Interventional Pain Center, [facility] [address] [place] [address] Leonard Cleveland CRNP [address] [place] [address], [place] [phone] Cervical myofascial pain syndrome* Allergies No known active allergiesdocumented as of this encounter (statuses as of 08/09/2023) Medications Medication Sig Dispensed Refills Start Date End Date Status Meclizine HCl 25 MG Oral Tablet (Antivert) TAKE 1 TABLET BY MOUTH 3 TIMES DAILY NEEDED FOR DIZZINESS. 30 Tablet 03/10/2021 Active Fluticasone Propionate 50 MCG/ACT Nasal Suspension (Flonase)Indicati ons:Chronic frontal sinusitis Administer 2 Sprays into each nostril daily. 16 g 5 03/27/2021 Active Additional Information Patient taking differently:2 [place] Each Nostril Daily(AM),As needed, Reported on 06/17/2022 [...] type 2 nursing care encounter ([facility]) TAKE THREE TABLETS BY MOUTH EVERY [...] 100 Tablet 1 10/21/2022 4 Discontinue d(Refill) Lisinopril 40 MG Oral Tablet TAKE ONE TABLET BY MOUTH EVERY MORNING 100 Tablet 1 10/21/2022 4 Discontinue d(Refill) Fluticasone Propionate 50 MCG/ACT Nasal Suspension (Flonase) Administer 1 [place] into nostril at bedtime. 16 g 3 05/11/2023 4 Discontinue d(Refill) Hospital, Clinic, or Other Facility Administered Medication Ordered Dose Route Frequency Start Date End Date Status Triamcinolone Acetonide (Kenalog) 40 MG/ML inj 40 mgIndications:Cervical myofascial pain syndrome 40 mg IM ONCE 06/21/2023 06/21/2023 Ended bupivacaine HCl (Sensorcaine) 0.25 % (PF) inj 10 mgIndications:Cervical myofascial pain syndrome 10 mg IM ONCE 06/21/2023 06/21/2023 Ended documented as of this encounter (statuses as of 08/09/2023) Active Problems Problem Noted Date Diagnosed Date COPD, group B, by GOLD 2017 classification 05/30 Overview: Per COPD GOLD Classification Atherosclerosis of aorta 07/23/2022 Atherosclerosis of coronary artery of [place] heart without angina pectoris 07/23/2022 Anxiety and [...] as of this encounter (statuses as of 08/09/2023) Resolved Problems Problem Noted Date Diagnosed Date [...] as of this encounter (statuses as of 08/09/2023) Immunizations Name Administration Dates Next Due COVID-19 [...] CENTER PROCEDURE NOTE Name: Dickson Diamond Location: [facility] Outpatient Office Service: Pain Management Diagnosis: Myofascial Pain Provider: Leonard DICKINSON Procedure: Trigger Points Injections - Steroid and Local Anesthetic Estimated Blood Loss: Negligible Urine output: None Drains/Implants: None Complications: None [place] Society of Anesthesiologists Score: II The patient [...] name and date of ) as per [facility] protocol. The area to be injected was [...] Yes, A1C 6.3 on 01/27/23A1C Physical Therapy: [place] Sexton 2021 for right side cervical pain documented in this encounter Plan of Treatment Upcoming Encounters Date Type Department Care Team (Late st Contact Info) Description 08/17/2023 9:30 AM EDT Office Visit Cardiology, [facility] [address] [facility] [place] [address] Ashley Perez CRNP [address] [facility] [place] [address] 09/27/2023 10:00 AM EDT Office Visit Interventional Pain Center, [facility] [address] [place] [address] Leonard Cleveland CRNP [address] [place] [address] 10/04/2023 1:00 PM EDT Nutrition Services Nutrition, [facility] [address] [place] [address] Rosangela Ortiz, RDN [address] [place] [address] 11/09/2023 11:00 AM EDT Office Visit Sleep Disorders, [facility] [address] [facility] [place] [id number] Vidya Wong MD 400 [facility] [place] [phone] 12/01/2023 9:00 AM EDT Office Visit Family Practice [facility] [place] [address] [facility] [address] Roberto Duncan III, MD [address] [facility] [address] Scheduled Procedures Name Priority Associated Diagnoses Date/Ti [...] -Specify documented in this encounter Care Teams Flue Gas Analyst Relationship Specialty Start Date End Date Roberto Duncan III, MD [address] [facility] [place] [address] PCP - General 03/12/01 documented as of this encounter
--- OUTSIDE RECORDS SUMMARY | 2023-08-10 11:15 | External Medical Summary | Summary of Care ---
Author Name Unknown Organization [facility] Address [address] [place] [address] Phone [phone] Care Team Providers Care Natural Sciences Manager Name Role Phone Dakota PRASAD MD, Roberto Harkins Primary Care Provider [phone] Reason for Visit * Reason Comments Procedure Right cervical TPI Pain Right side neck radi ating into right trapezius/shoulder. Intermittent aching pain. Denies numbness/tingling/burning. Ongoing, no trauma. Encounter Details Date Type Department Care Team (Late st Contact Info) Description 06/21/2023 1:30 PM EDT Office Visit Interventional Pain Center, [facility] [address] [place] [address] Leonard Cleveland CRNP [address] [place], [place] [phone] Cervical myofascial pain syndrome* Allergies No known [...] 03/27/2021 Active Additional Information Patient taking differently:2 [place] Each Nostril Daily(AM),As needed, Reported on 06/17/2022 [...] type 2 nursing care encounter ([facility]) TAKE THREE TABLETS BY MOUTH EVERY DAY [...] 50 MCG/ACT Nasal Suspension (Flonase) Administer 1 [place] into nostril at bedtime. 16 g 3 [...] aorta 07/23/2022 Atherosclerosis of coronary artery of [place] heart without angina pectoris 07/23/2022 Anxiety and [...] CENTER PROCEDURE NOTE Name: Dickson Diamond Location: [facility] Outpatient Office Service: Pain Management Diagnosis: Myofascial Pain Provider: Leonard DICKINSON Procedure: Trigger Points Injections - Steroid and Local Anesthetic Estimated Blood Loss: Negligible Urine output: None Drains/Implants: None Complications: None [place] Society of Anesthesiologists Score: II The patient [...] name and date of ) as per [facility] protocol. The area to be injected [...] Yes, A1C 6.3 on 01/27/23A1C Physical Therapy: [place] [place] 2021 for right side cervical pain documented in this encounter Plan of Treatment Upcoming Encounters Date Type Department Care Team (Late st Contact Info) Description 08/17/2023 9:30 AM EDT Office Visit Cardiology, [facility] [address] [facility] [place] [address] Ashley Perez CRNP [address] [facility] [place] [address] 09/27/2023 10:00 AM EDT Office Visit Interventional Pain Center, [facility] [address] [place] [address] Leonard Cleveland CRNP [address] [place] [address] 10/04/2023 1:00 PM EDT Nutrition Services Nutrition, [facility] [address] [place] [place] [address] Rosangela Ortiz, RDN [address] [place] [address] 11/09/2023 11:00 AM EDT Office Visit Sleep Disorders, [facility] [address] [facility] [place] [phone] Vidya Wong MD [address] [facility] [place] [id number] 12/01/2023 9:00 AM EDT Office Visit Family Practice [facility] [place]ie [place] [address] [facility] [address] Roberto Duncan III, MD [address] [facility] [address] Scheduled Procedures Name Priority Associated Diagnoses Date/Ti [...] -Specify documented in this encounter Care Teams Natural Sciences Manager Relationship Specialty Start Date End Date Roberto Duncan III, MD [address] [facility] [place] [address] PCP - General 03/12/01 documented as of this encounter
[2023-08-10] MEDS: hydrOXYzine HCl 10 MG TAB PO PRN (11:25)
[2023-08-10] MEDS: MULTIVITAMIN TAB PO SCH (13:02)
--- NOTE | 2023-08-10 15:55 | Electrocardiogram Report ---
Test Reason : Blood Pressure : / mmHG Vent. Rate : 033 BPM Atrial Rate : 064 BPM P-R Int : 000 ms QRS Dur : 130 ms QT Int : 480 ms P-R-T Axes : 039 -51 -25 degrees QTc Int : 355 ms Sinus rhythm with 2nd degree A-V block with 2:1 A-V conduction Left axis deviation Right bundle branch block Minimal voltage criteria for LVH, may be normal variant Inferior infarct (cited on or before 09-AUG-2023) Abnormal ECG When compared with ECG of 09-AUG-2023 15:53, Significant changes have occurred Confirmed by Chance Geller ([id number]) on 08/10/2023 3:55:32 PM Referred By: Roberto Duncan Confirmed By:Chance Geller
--- NOTE | 2023-08-10 16:15 | Electrocardiogram Report ---
Test Reason : Blood Pressure : / mmHG Vent. Rate : 058 BPM Atrial Rate : 058 BPM P-R Int : 368 ms QRS Dur : 112 ms QT Int : 414 ms P-R-T Axes : 033 -54 -14 degrees QTc Int : 406 ms Sinus bradycardia with 1st degree A-V block Left axis deviation Incomplete right bundle branch block Minimal voltage criteria for LVH, may be normal variant Possible Anterior infarct , age undetermined Inferior infarct (cited on or before 09-AUG-2023) Abnormal ECG When compared with ECG of 10-AUG-2023 02:19, (unconfirmed) Sinus rhythm is no longer with 2nd degree A-V block Vent. rate has increased BY 25 BPM Incomplete right bundle branch block has replaced Right bundle branch block Borderline criteria for Lateral infarct are now Present Confirmed by Chance Geller ([id number]) on 08/10/2023 4:14:37 PM Referred By: Roberto Duncan Confirmed By:Chance Geller
--- NOTE | 2023-08-10 19:18 | Hospitalist Progress Note ---
Date of Service August 10, 2023 delayed entry date of service noted above Assessment & Plan (1) Second degree AV block: (2) Hypokalemia: Plan: Cardiology service consulted plan for PPM placement in Hypokalemia, hypomagnesemia, near syncope replaced chronic respiratory failure secondary to COPD on home O2, baseline pulmonary status hx CAD as per records trivial MR, mild TR, loculated pericardial effusion from TTE April 2023, history of bifascicular heart block (RBBB, LAFB as per records) history ANNEL on CPAP hypertension hyperlipidemia statin Rx DM2 on oral medications, well-controlled as of recent hemoglobin A1c of 6.29 Jul 2023 hx BPH, stable on regimen past tobacco abuse DVT prophylaxis. Lovenox subcu Full code Admission and Anticipated Discharge Date Admission Date: August 09, 2023 Subjective ff up for 2nd deg av block etc seen resting in bed, sitting up, comfortable states he feels fine overall No recurrence of dizziness, palpitations, chest pain, shortness of breath No other new symptoms Review of Systems Review of Systems: all noted and negative except for above Physical Exam Physical Exam: 6General- oriented x 3, not in distress, speaks in sentences with no effort or accessory muscle use Eyes- anicteric Neck- no JVD Lungs- clear breath sounds bilaterally, no rales/wheezes Heart- HR 61, regular rhythm; no murmurs Abdomen- normal bowel sounds, nondistended, soft, nontender Extremities- no pretibial edema, no calf tenderness Neuro- alert, oriented x 3; no gross focal neurologic deficits Skin- warm & dry Results & Data Results & Data Vital Signs (Past 12 Hours) Vital Signs Temp Pulse Resp BP Pulse Ox O2 Del Method O2 Flow Rate 08/10/23 18:00 60 17 93 Nasal Cannula 2 08/10/23 16:36 37.0 C 08/10/23 16:00 86 22 94 Nasal Cannula 2 08/10/23 15:05 130/73 08/10/23 15:05 65 20 93 08/10/23 14:00 132/54 L 08/10/23 14:00 57 L 14 94 08/10/23 13:00 166/84 H 08/10/23 13:00 72 17 93 08/10/23 12:00 36.6 C 08/10/23 12:00 144/95 H 08/10/23 12:00 53 L 18 96 Nasal Cannula 2 08/10/23 11:01 162/73 H 08/10/23 11:01 58 L 17 93 08/10/23 10:00 157/86 H 08/10/23 10:00 67 21 94 08/10/23 09:00 123/54 L 08/10/23 09:00 63 16 92 08/10/23 08:36 36.8 C 08/10/23 08:01 118/85 08/10/23 08:01 60 20 94 Nasal Cannula 2 08/10/23 08:00 62 16 93 all noted and reviewed including below
[2023-08-11] MEDS: lisinopril 40 MG TAB PO SCH (08:52)
--- NOTE | 2023-08-11 09:50 | History & Physical Bridge Note ---
Date of Service August 11, 2023 History & Physical Bridge Note I have examined the patient, reviewed the History & Physical and in the interval since the performance of the History & Physical I have noted the following changes of clinical significance: pt with 2:1 intermittent AV block for a dual chamber pacemaker. Discussed the procedure and potential risks; he expressed an understanding and agreed to proceed.
--- NOTE | 2023-08-11 09:50 | Pre Anesthesia Assessment ---
Date of Service August 11, 2023 Pre Sedation Assessment Vital Signs Temp Pulse Pulse Pulse Resp BP BP 08/11/23 09:30 63 18 165/86 H 08/11/23 04:00 36.8 C 50 L 17 150/82 H 08/11/23 00:00 36.7 C 55 L 14 152/70 H 08/10/23 22:53 08/10/23 20:00 08/10/23 20:00 36.6 C 67 15 157/79 H 08/10/23 18:00 60 17 08/10/23 16:36 37.0 C 08/10/23 16:00 86 22 08/10/23 15:05 130/73 08/10/23 15:05 65 20 08/10/23 14:00 132/54 L 08/10/23 14:00 57 L 14 08/10/23 13:00 166/84 H 08/10/23 13:00 72 17 08/10/23 12:00 36.6 C 08/10/23 12:00 144/95 H 08/10/23 12:00 53 L 18 08/10/23 11:01 162/73 H 08/10/23 11:01 58 L 17 08/10/23 10:00 157/86 H 08/10/23 10:00 67 21 Pulse Ox Pulse Ox O2 Del Method O2 Del Method O2 Flow Rate O2 Flow Rate 08/11/23 09:30 95 Room Air 08/11/23 04:00 95 Nasal Cannula 2 08/11/23 00:00 93 Nasal Cannula 2 08/10/23 22:53 93 Nasal Cannula 2 08/10/23 20:00 Nasal Cannula 2 08/10/23 20:00 94 Nasal Cannula 2 08/10/23 18:00 93 Nasal Cannula 2 08/10/23 16:36 08/10/23 16:00 94 Nasal Cannula 2 08/10/23 15:05 08/10/23 15:05 93 08/10/23 14:00 08/10/23 14:00 94 08/10/23 13:00 08/10/23 13:00 93 08/10/23 12:00 08/10/23 12:00 08/10/23 12:00 96 Nasal Cannula 2 08/10/23 11:01 08/10/23 11:01 93 08/10/23 10:00 08/10/23 10:00 94 Cardiovascular RRR, no murmur, no edema Respiratory normal respiratory effort, lungs clear to auscultation Pre-Sedation Airway Assessment Smoking Status: Never smoker Hx Sleep Apnea: Yes Short, Thick Neck: No Thyromental Distance: > or= 3.5 Finger Breadths Oral Cavity: + WNL Mallampati Class: III ASA: ASA3 NPO Status Date of Last Intake of Fluids: 08/11/23 Time of Last Intake of Fluids: 07:00 Date of Last Intake of Solid Food: 08/10/23 Time of Last Intake of Solid Foods: 17:00 Procedure Planning Contraindications for Sedation: none Current Medications Reviewed: Yes Notes The planned sedation has been discussed with the patient. Informed Consent was obtained. I have identified the patient, determined the appropriateness of sedation and have assessed the patient immediately prior to the procedure. All medicine(s) and interventions are by my order.
[2023-08-11] MEDS: LIDOCAINE 1% LOCAL 20 ML VIAL ONE (10:50)
[2023-08-11] MEDS: VANCOMYCIN HCL 1000MG/20ML VIAL ONE (10:50)
[2023-08-11] MEDS: BUPIVACAINE 0.25% PF 30 ML VIAL ONE (10:50)
[2023-08-11] MEDS: ceFAZolin 330 MG/ML 1 GM VIAL ONE (10:50)
--- NOTE | 2023-08-11 11:20 | Post Anesthesia Assessment ---
Date of Service August 11, 2023 Post Sedation Assessment Vital Signs Temp Pulse Pulse Pulse Resp BP BP 08/11/23 09:30 63 18 165/86 H 08/11/23 08:00 08/11/23 04:00 36.8 C 50 L 17 150/82 H 08/11/23 00:00 36.7 C 55 L 14 152/70 H 08/10/23 22:53 08/10/23 20:00 08/10/23 20:00 36.6 C 67 15 157/79 H 08/10/23 18:00 60 17 08/10/23 16:36 37.0 C 08/10/23 16:00 86 22 08/10/23 15:05 130/73 08/10/23 15:05 65 20 08/10/23 14:00 132/54 L 08/10/23 14:00 57 L 14 08/10/23 13:00 166/84 H 08/10/23 13:00 72 17 08/10/23 12:00 36.6 C 08/10/23 12:00 144/95 H 08/10/23 12:00 53 L 18 Pulse Ox Pulse Ox O2 Del Method O2 Del Method O2 Flow Rate O2 Flow Rate 08/11/23 09:30 95 Room Air 08/11/23 08:00 Nasal Cannula 2 08/11/23 04:00 95 Nasal Cannula 2 08/11/23 00:00 93 Nasal Cannula 2 08/10/23 22:53 93 Nasal Cannula 2 08/10/23 20:00 Nasal Cannula 2 08/10/23 20:00 94 Nasal Cannula 2 08/10/23 18:00 93 Nasal Cannula 2 08/10/23 16:36 08/10/23 16:00 94 Nasal Cannula 2 08/10/23 15:05 08/10/23 15:05 93 08/10/23 14:00 08/10/23 14:00 94 08/10/23 13:00 08/10/23 13:00 93 08/10/23 12:00 08/10/23 12:00 08/10/23 12:00 96 Nasal Cannula 2 Recovery Score Activity: Moves 4 extremities Respiration: Deep Breath/Cough Circulation: +/-20% PreAnes Value Consciousness: Fully Awake Oxygen Saturation: > 92% On Room Air Discharge Sedation Level of Care: Fast Track Phase II Post Sedation Plan On clinical assessment, the patient appears to have tolerated the sedation without complications. Patient is recovering as anticipated. Patient will continue to be monitored by nursing and may be discharged when sedation discharge criteria are met per below protocol. Upon Completions of procedure up to 15 minutes continue every 5 minute vital signs and the P.A.R. score; then discharge to a Phase I or Fast Track to Phase II per the following guidelines: * Discharge Patient to appropriate Phase II area if PAR is 8 or greater or return to pre- procedure baseline. The post - procedure orders will be as directed. * If PAR score is less than 8 or not return to pre-procedure baseline then patient will follow Phase I monitoring till PAR is reached for Phase II. The Phase I may be done in procedure room or may call to secure a Phase I area. * If naloxone or flumazenil are used for reversal, hold in Phase I for continued monitoring from when last reversal dose was given for a minimum of 60 minutes or longer pending the nurse and/or physician discretion of patient condition before discharge to Phase II. Please call the Sedation Physician to re-evaluate and complete post-note for discharge to Phase II area. Do NOT discharge from procedure sedation or Phase 1 until post- sedation evalu ation note is complete by procedure /sedation MD Sedation Discharge Instructions to be given to the patient at discharge to home.
--- NOTE | 2023-08-11 11:34 | Operative Report ---
Post Operative Report DICTATED BY:Cherri Keller D.O. DATE OF PROCEDURE: 08/11/2023. 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 SURGEON: Cherri Keller DO ASSISTANTS: None. ANESTHESIA: Monitored conscious sedation administered under my supervision by Komal Martin. Start time 10:19, end time 11:16, a total of 3 mg of Versed and 75 mcg of fentanyl. INTRAVENOUS FLUIDS: 90 mL. CONTRAST: 14 mL. ANTIBIOTICS: 2 grams of Ancef. ADDITIONAL MEDICATIONS: none BLOOD LOSS: 100 mL. URINE OUTPUT: Not applicable. SPECIMENS: None. FINDINGS: See below. DRAINS: None. COMPLICATIONS: presumed PTX (CXR pending) CONDITION: Stable. INDICATIONS: This is a 73-year-old gentleman who has a past medical history HTN. He had a recent zio patch that was remarkable for intermittent complete heart block. Based on the monitor the patient was recommended a pacemaker prior to hospital discharge. CONSENT: Consent was obtained prior to the patient going into the electrophysiology lab. The patient was informed of the risks, benefits, and alternatives to the procedure. Risks include, but not limited to, sudden cardia c , cardiac arrhythmias, cerebrovascular accident, myocardial infarction, injury to his blood vessels, chamber of the heart and lung, bleeding and infection. The patient understood these risks and agreed to the procedure as planned. Informed consent was obtained. DESCRIPTION OF PROCEDURE: The patient was brought into electrophysiology lab in a fasting state. He was connected to continuous cardiac monitoring. A timeout was performed to ensure the patient's identity and procedure correctly. He was prepped and draped in the left infraclavicular space in normal surgical standard fashion. Monitored conscious sedation was given throughout the procedure for the patient's comfort level. [place] precautions were maintained throughout the procedure. Prophylactic antibiotics were given prior to incision. A 20 mL of 1% lidocaine and bupivacaine mixture were given in the left deltopectoral groove. An incision was made in the left deltopectoral groove. Blunt dissection was performed down to the pectoralis muscle. Then, using blunt dissection over the pectoralis muscle within the pectoral fascia, a pacemaker pocket was created. Then, a peripheral venogram was performed to identify the axillary vein. However I am pretty confident I caused a PTX. I immediately put the patient on a 100% non-rebreather. So I ended up isolating the cephalic vein with 0 Silk ties; then nicked the cephalic with an 11 blade and got venous access through that. A guidewire was inserted without any resistance. A 6- [place] sheath was inserted over the guidewire without any resistance. Dilator was removed and a second guidewire was inserted through the sheath to allow for retained venous access. Then a 9 [place] sheath was inserted over one of the guidewires. The guidewire and dilator were removed. Then, the [employer] 3D medium sheath was inserted through the 9-[place]ian sheath over a Glidewire into the right ventricle. The Glidewire and dilator were removed. Then, the left bundle lead was advanced through the sheath and intracardiac electrogram His bundle recordings were estimated when the camera was in PHAN 10. Once I I had an idea where the His bundle is, I then moved the camera to PHAN 30 and marked where the His bundle was on my fluoroscopy screen. I came down about 2 cm from this in a line that would extend out to the apex and then started coming on pacing. Once I found an area where I had a nice W formed pace complex in my lead V1, I then moved the camera to [place] 30. Then the helix was extended into the septum. Then the helix locking tool was placed. Then the lead was screwed further into the septum while pacing by giving slow clockwise turns. The paced complex changed to a nice R' in V1 and the pacing stim to peak QRS in V6 was good. I then gave contrast through the sheath to see how far the lead was into the septum and then I slit the C[employer] Operator 3D medium sheath under fluoroscopic guidance and left the 9-Bel[place]ian sheath in while I positioned the right atrial lead. A 6-[place]ian sheath was inserted over the retained guidewire, the guidewire and dilator removed.Of note the patient was in atrial flutter; we were not able to pace him out of it but eventually towards the end of the case he converted back to AP. The right atrial lead was then advanced into right atrium and positioned into right atrial appendage under fluoroscopic guidance. There was adequate pacing and sensing thresholds and no diaphragmatic stimulation with high output pacing. The 6-Belarusian sheath was peeled away and the lead was fixated to the pectoralis muscle using 0 silk suture. The 9-[place]ian sheath around the left bundle lead was peeled away and the lead was fixated to pectoralis muscle using 0 silk suture. The pocket was flushed with copious amounts of vancomycin and saline wash and inspected for hemostasis. The leads were then attached to the pulse generator making sure the pins were in appropriate position, passed set screws, and set screws were all tightened. Pulse generator was then placed in the pocket, making sure the leads were lying flat beneath the device. The incision was closed in a 3-layer fashion using 2-0 Vicryl interrupted suture, followed by 3-0 Vicryl interrupted suture, followed by 4-0 Monocryl running stitch. Then a primaseal dressing was placed EQUIPMENT: 1. Pulse generator is a [employer] MRI Model Number [id number] SN: [id number]. 2. Right atrial lead, [employer] Tendril STS 2088TC SN: [id number] 3. Left bundle lead, [employer] SJM Tendril STS 2088TC SN: [id number] INTRAPROCEDURAL FINDINGS: 1. Right atrial lead, flutter waves 1.6 millivolts, impedance 440 ohms, threshold N/A pt in flutter 3. Left bundle lead, R waves 10.5 millivolts, impedance 640 ohms, threshold 1.2 volts at 0.4 milliseconds. FINAL MEASUREMENTS THROUGH THE DEVICE: 1. Right atrial lead, P waves 3.4 millivolts, impedance 550 ohms, threshold 0.5 volt at 0.4 milliseconds. 2. Left bundle lead, R waves >12 millivolts, impedance 610 ohms, threshold 0.75 volts at 0.4 milliseconds. FINAL PARAMETERS: DDDR 70/120, right atrial amplitude 3.5 volts, pulse width 0.4 milliseconds, sensitivity 0.5 millivolts. Left bundle lead amplitude 3.5 vo lts, pulse width 0.4 milliseconds, sensitivity 2 millivolts. IMPRESSION: Successful dual chamber rate responsive permanent pacemaker under fluoroscopic guidance along with peripheral venogram all under fluoroscopic guidance secondary to intermittent 2nd degree heart block type II. PLAN: Monitor the patient post-procedure.Stat CXR to see if the PTX size. A 12-lead ECG, chest x-ray. He is not to lift the left elbow or left shoulder for 1 month. He cannot lift more than 10 pounds with the left arm for 2 weeks. He is to keep the dressing on and dry until his wound check next week.
--- NOTE | 2023-08-11 11:57 | XRay Report ---
XR chest 1V portable HISTORY: S/P pacemaker insertion, possible pneumo COMPARISON: Chest 08/09/2023. FINDINGS: Interval placement left-sided dual-chamber pacemaker. The leads appear intact. Subtle linea r density at the left lung apex may be due to the overlapping ribs or a pleural reflection in the set ting of a tiny pneumothorax. Therefore, recommend repeat chest x-ray with inspiration and expiration views. No pneumothorax. The cardiac silhouette is top normal in size. No evidence for pulmonary edema . Small focal density within the right midlung zone is new compared to the prior study. This may repr esent atelectasis or a low-grade pneumonitis. IMPRESSION: 1. Subtle linear density at the left lung apex may be due to the overlapping ribs or a pleural reflec tion in the setting of a tiny pneumothorax. Therefore, recommend repeat chest x-ray with inspiration and expiration views. 2. Left-sided chamber pacemaker. The leads appear intact. 3. Small focal density within the right midlung zone may represent atelectasis or a low-grade pneumon itis. This is new compared the prior study. ACT 112: Negative or not required by law. Electronically signed by: Teo King M.D. 08/11/2023 11:55 AM
[2023-08-11] MEDS: MIDAZOLAM HCL 5 MG/ML 1 ML VIAL ONE (12:27)
[2023-08-11] MEDS: fentaNYL citrate PF 100 MCG/2 ML VIAL ONE (12:28)
[2023-08-11] MEDS: WATER, STERILE FOR INJ 10 ML VIAL ONE (13:20)
[2023-08-11] MEDS ORDERED: ALBUT/IPRATROP 3MG/0.5MG NEB 3 ML VIAL NEB SCH (15:00)
--- NOTE | 2023-08-11 15:01 | Cardiology Progress Note ---
Date of Service August 11, 2023 Assessment & Plan (1) Second degree AV block: (2) Hypokalemia: (3) Elevated lactic acid level: Plan 73-year-old male with symptomatic bradycardia, second-degree AV block Mobitz type I, and 2-1 AV block. Dual-chamber pacemaker implanted today with possible mild left apical pneumothorax. Continue oxygen supplementation with 100% nonrebreather. Repeat chest x-ray in 3 hours. Continue observation in ICU for possible pneumothorax. Post pacemaker implantation activity restrictions reviewed. Continue current medications including amlodipine, atorvastatin, and lisinopril. I spent a total of 30 minutes on the date of service in preparation, delivery, and documentation of the care provided to this patient, excluding any time spent in the performance of separately billed services. Admission and Anticipated Discharge Date Admission Date: August 10, 2023 Subjective 73-year-old male seen and examined at the bedside. Pacemaker implanted earlier today complicated by possible small left apical pneumothorax. Feeling well post pacemaker implantation. Denies chest pain or shortness of breath. Offers no concerns/complaints. Review of Systems Review of Systems: All systems reviewed & are unremarkable except as noted in Subjective Physical Exam Constitutional: well developed and well nourished; no acute distress Respiratory: normal respiratory effort; no respiratory distress Auscultation: no crackles, no rales, no rhonchi and no wheezes Cardiovascular: Rate/Rhythm: regular rate and regular rhythm Heart Sounds: normal S1 and normal S2; no murmur Vessels: radial pulses present; no JVD and no carotid bruit Extremities: no edema Gastrointestinal (Abdomen): Inspection/Auscultation: normal bowel sounds; abdomen not distended Percussion/Palpation: abdomen soft; abdomen nontender, no guarding and abdomen not rigid Neurologic: CN's II-XI intact bilaterally and moves all extremities; no focal motor deficits Results & Data Vital Signs (Past 12 Hours) Vital Signs Temp Pulse Pulse Resp BP Pulse Ox O2 Del Method 08/11/23 14:30 70 20 140/70 97 Non-rebreather 08/11/23 13:32 36.7 C 70 16 122/79 100 Non-rebreather 08/11/23 12:47 36.7 C 70 17 153/66 H 99 Non-rebreather 08/11/23 12:00 70 18 128/76 97 Non-rebreather 08/11/23 11:45 70 18 133/75 95 Non-rebreather 08/11/23 11:30 75 18 133/81 95 Non-rebreather 08/11/23 09:30 63 18 165/86 H 95 Room Air 08/11/23 08:00 Nasal Cannula 08/11/23 04:00 36.8 C 50 L 17 150/82 H 95 Nasal Cannula O2 Flow Rate 08/11/23 14:30 15 08/11/23 13:32 15 08/11/23 12:47 15 08/11/23 12:00 10 08/11/23 11:45 10 08/11/23 11:30 10 08/11/23 09:30 08/11/23 08:00 2 08/11/23 04:00 2 Laboratory Results Intake and Output 08/10/23 08/11/23 08/11/23 22:59 06:59 14:59 Intake Total 240 / 1250 1010 / 1250 Output Total 925 / 2825 1350 / 2825 Balance -685 / -1575 -340 / -1575 Intake: IV 1010 / 1010 Potassium Chloride 20 meq In 1010 / 1010 Lactated Ringer's 1,000 ml @ 50 mls/hr IV .[id number] ONE Rx#: [id number] Oral 240 / 240 0 / 240 Output: Urine 925 / 2825 1350 / 2825 # Bowel Movements 0 / 0 0 / 0 Other: Weight 102.6 kg Weight Measurement Method Built in [facility]
--- NOTE | 2023-08-11 16:17 | XRay Report ---
XR chest 1V portable CLINICAL HISTORY: s/p ppm with small apical PTX ensure not enlarging COMPARISON STUDY: Chest radiograph August 11, 2023 at 11:24 AM. FINDINGS: A left subclavian pacer is in place. An equivocal small left apical pneumothorax is again n oted. This is likely artifactual. There is no evidence for pulmonary edema. Cardiomediastinal silhoue tte is stable. IMPRESSION: Equivocal small left apical pneumothorax. This is likely artifactual however continued s hort-term radiographic follow-up is recommended. ACT 112: Negative or not required by law. Electronically signed by: Magdi Thornton M.D. 08/11/2023 4:16 PM
--- NOTE | 2023-08-11 16:45 | Electrocardiogram Report ---
Test Reason : Blood Pressure : / mmHG Vent. Rate : 077 BPM Atrial Rate : 077 BPM P-R Int : 178 ms QRS Dur : 144 ms QT Int : 412 ms P-R-T Axes : 027 142 -78 degrees QTc Int : 466 ms Atrial-sensed ventricular-paced rhythm Abnormal ECG When compared with ECG of 10-AUG-2023 03:41, Electronic ventricular pacemaker has replaced Sinus rhythm Confirmed by Chance Geller ([id number]) on 08/11/2023 4:45:15 PM Referred By: Roberto Duncan Confirmed By:Chance Geller
--- NOTE | 2023-08-11 17:01 | Hospitalist Progress Note ---
Date of Service August 11, 2023 Assessment & Plan (1) Second degree AV block: (2) Hypokalemia: Plan: Patient presented with generalized weakness and fatigue. Also reported lightheadedness and presyncope On telemetry, found to have second-degree AV block Mobitz type I as well as episode of 2 is to 1 AV block. Status post dual-chamber permanent pacemaker on August 11, 2023 Possible postprocedure pneumothorax versus artifact On chest x-ray Continue to monitor on telemetry Chest x-ray tomorrow a.m. Wean off oxygen as tolerated chronic respiratory failure secondary to COPD on home O2, baseline pulmonary status hx CAD as per records trivial MR, mild TR, loculated pericardial effusion from TTE April 2023, history of bifascicular heart block (RBBB, LAFB as per records) history ANNEL on CPAP hypertension-Continue on lisinopril, hydrochlorothiazide and Lasix hyperlipidemia statin Rx DM2 on oral medications, well-controlled as of recent hemoglobin A1c of 6.29 Jul 2023 hx BPH, stable on regimen past tobacco abuse DVT prophylaxis. Lovenox subcu Full code Time spent evaluating patient, direct bedside care, chart review, placing orders, interpretation of diagnostic studies, discussion with consultants, patient, and family members, as well as other required patient management activities is 50 minutes Please note the above document was generated using voice recognition software. It may contain grammatical, syntax or spelling errors. Any formal questions or concerns about the content, text or information contained within the body of this dictation should be directly addressed to the provider for clarification Admission and Anticipated Discharge Date Admission Date: August 10, 2023 Subjective Patient seen and examined after the procedure. He is comfortably lying on the bed; not in distress. Vital signs stable; normal respiratory effort. Afebrile and normotensive Review of Systems Review of Systems: All systems reviewed & are unremarkable except as noted in Subjective Physical Exam Physical Exam: Constitutional: Alert oriented x 3; not in distress. Respiratory: Bilateral normal vesicular breath sound Cardiovascular: RRR, no murmur, no edema Vessels: no JVD or carotid bruit Chest: Bandage over pacemaker insertion site; no soakage Abdomen: normal bowel sounds, soft, nontender, no hepatosplenomegaly Musculoskeletal: no cyanosis or clubbing, extremities motor strength 5/5 Skin: no rashes, warm and dry normal turgor Neurologic: PERRL, EOMI, accommodation nl, no face palsy, no dysarthria CN's II- XI intact bilaterally and moves all extremities Psychiatric: A+Ox3, euthymic affect Results & Data Results & Data Vital Signs (Past 12 Hours) Vital Signs Temp Pulse Pulse Resp BP Pulse Ox O2 Del Method 08/11/23 14:30 70 20 140/70 97 Non-rebreather 08/11/23 13:32 36.7 C 70 16 122/79 100 Non-rebreather 08/11/23 12:47 36.7 C 70 17 153/66 H 99 Non-rebreather 08/11/23 12:00 70 18 128/76 97 Non-rebreather 08/11/23 11:45 70 18 133/75 95 Non-rebreather 08/11/23 11:30 75 18 133/81 95 Non-rebreather 08/11/23 09:30 63 18 165/86 H 95 Room Air 08/11/23 08:00 Nasal Cannula O2 Flow Rate 08/11/23 14:30 15 08/11/23 13:32 15 08/11/23 12:47 15 08/11/23 12:00 10 08/11/23 11:45 10 08/11/23 11:30 10 08/11/23 09:30 08/11/23 08:00 2
[2023-08-12] MEDS: ACETAMINOPHEN 325 MG TAB PO PRN (04:03)
[2023-08-12 04:23] LABS: BUN Creatinine Ratio 22.9 (10-20); Creatinine Clr Calc Pharmacy 95.3 ml/min; Est GFR (African American) 99.8 ml/min; Est GFR (Non-African American) 86.1 ml/min; Potassium 4.2 mmol/L (3.5-5.1)
[2023-08-12 04:26] LABS: Basophils # (auto) 0.04 K/uL (0.00-0.20); Basophils % (auto) 0.7 %; Eosinophils # (auto) 0.11 K/uL (0.00-0.50); Eosinophils % (auto) 1.9 %; Hemoglobin 12.6 g/dl (14.0-18.0); Immature Granulocytes # (auto) 0.02 K/uL (0.01-0.20); Immature Granulocytes % (auto) 0.3 %; Lymphocytes # (auto) 1.15 K/uL (1.20-3.40); Lymphocytes % (auto) 20.1 %; Mean Corpuscular Hemoglobin 30.7 pg (25.0-34.0); Mean Corpuscular Hgb Conc 34.1 g/dL (32.0-36.0); Mean Corpuscular Volume 90.2 fL (80.0-100.0); Mean Platelet Volume 9.8 fL (9.4-12.4); Monocytes # (auto) 0.63 K/uL (0.11-0.59); Neutrophils # (auto) 3.78 K/uL (1.40-6.50); Platelet Count 187 K/uL (130-400); RDW Coefficient of Variation 13.1 % (11.5-14.5); RDW Standard Deviation 43.2 fL (36.4-46.3); White Blood Count 5.73 K/ul (4.8-10.8)
--- NOTE | 2023-08-12 07:32 | XRay Report ---
XR chest 1V portable HISTORY: 73 years-old Male follow up acute shortness of breath COMPARISON: 08/11/2023 TECHNIQUE: AP view of the chest FINDINGS: Left subclavian pacer. Cardiomediastinal and hilar silhouettes are within normal limits. Previously q uestioned left apical pneumothorax is not visualized. Ill-defined linear right basilar/mid lung opaci ties are redemonstrated. Bones appear grossly intact. IMPRESSION: 1. Previously questioned left apical pneumothorax is not visualized. 2. Right basilar/midlung opacities are again noted. Differential considerations include atelectasis v ersus a mild nonspecific pneumonitis. ACT 112: Negative or not required by law. The above report was generated using voice recognition software. It may contain grammatical, syntax o r spelling errors. Electronically signed by: Sam Shaikh M.D. 08/12/2023 7:30 AM
[2023-08-12] MEDS: ALBUT/IPRATROP 3MG/0.5MG NEB 3 ML VIAL NEB SCH (08:08)
[2023-08-12] MEDS: SODIUM CHLOR 7% 4 ML NEB NEB SCH (08:08)
--- NOTE | 2023-08-12 08:47 | Cardiology Progress Note ---
Date of Service August 12, 2023 Assessment & Plan (1) Second degree AV block: (2) Hypokalemia: (3) Elevated lactic acid level: Plan 73-year-old male with symptomatic bradycardia, second-degree AV block Mobitz type I, and 2-1 AV block. Dual-chamber pacemaker implanted yesterday. Repeat chest xray this morning demonstrates no evidence of left apical pneumothorax as questioned yesterday. Post pacemaker implantation activity restrictions reviewed. Continue current medications including amlodipine, atorvastatin, and lisinopril. EQUIPMENT: 1. 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 2. Right atrial lead, Howell SJM Tendril STS 8TC SN: [id number] 3. Left bundle lead, Howell SJM Tendril STS [id number] SN: [id number] Howell rep to perform device interrogation this morning. Patient is doing well from a cardiovascular perspective. Pending device interrogation, he is ok for discharge per cardiology when acceptable from primary team. Device check/wound check in one week. Recommend close cardiology follow up within 2-4 weeks. Case has been discussed with Dr. Schmidt. Further recommendations regarding plan of care as per his assessment. I spent a total of 30 minutes on the date of service in preparation, delivery, documentation of the care provided to the patient excluding any time spent in the performance of separately billed services. [facility] Admission and Anticipated Discharge Date Admission Date: August 10, 2023 Supervising Physician Co-Signing Physician Notes I have personally performed a history and physical examination on the patient. I have reviewed the advance practitioner's documentation, and I agree with, and take responsibility for the plan of care. 73-year-old male with second-degree AV block. Dual-chamber pacemaker implanted 08/11/2023 with small left apical pneumothorax. Pneumothorax resolved per x-ray this a.m. Normal pacemaker function per interrogation. With evidence of moderate concentric left ventricular hypertrophy and mild loculated anterior pericardial fusion, recommend further evaluation for possible amyloidosis as outpatient with SPEP, UPEP, free light chains, and PYP scan. I spent a total of 30 minutes on the date of service in preparation, delivery, and documentation of the care provided to this patient, excluding any time spent in the performance of separately billed services. Subjective 5/23/24: Patient seen and examined in follow up today. Feeling well today. Offers no cardiac complaints. S/P PPM yesterday. patient has been out of bed today without complaint. He denies any chest pain, pressure, palpitations, no shortness of breath, no pre- syncope or syncope. Chest xray today demonstrates Resolution of a questionable left apical pneumothorax. Labs, vitals, diagnostics, telemetry and documentation reviewed. Telemetry reviewed showing SR/Paced. no acute events overnight. Rates currently in the 80s. Device rep to do interrogation. Review of Systems Review of Systems: All systems reviewed & are unremarkable except as noted in HPI & below Physical Exam Constitutional: well developed and well nourished; no acute distress and not ill appearing Neck: normal visual inspection and trachea midline Respiratory: normal respiratory effort, lungs clear to auscultation Cardiovascular: Rate/Rhythm: regular rate and regular rhythm Heart Sounds: normal S1 and normal S2; no murmur Vessels: dorsalis pedis pulses present; no JVD Extremities: no edema Chest (Breasts): Chest: + pacemaker (site c/d/i, no discharge or erythema, well approximated) Skin: no rashes, warm and dry (Pacemaker site C/D/I, no discharge/drainage, well approximated) Psychiatric: A+Ox3, euthymic affect Results & Data Vital Signs (Past 12 Hours) Vital Signs Temp Pulse Pulse Pulse Resp BP Pulse Ox 08/12/23 08:11 89 18 94 08/12/23 08:00 36.5 C 89 16 112/91 98 08/12/23 04:00 36.8 C 70 15 152/92 H 94 08/11/23 23:46 36.9 C 70 15 152/92 H 94 08/11/23 23:46 74 08/11/23 22:36 08/11/23 22:00 Pulse Ox O2 Del Method O2 Del Method O2 Flow Rate 08/12/23 08:11 Nasal Cannula 2 08/12/23 08:00 Nasal Cannula 2 08/12/23 04:00 Room Air 08/11/23 23:46 Room Air 08/11/23 23:46 08/11/23 22:36 Room Air 08/11/23 22:00 93 Room Air Laboratory Results CBC 08/12/23 Range/Units 03:36 WBC 5.73 (4.8-10.8) K/ul RBC 4.10 L (4.70-6.10) M/uL Hgb 12.6 L (14.0-18.0) g/dl Hct 37.0 L (42.0-52.0) % Plt Count 187 (130-400) K/uL Neut # (Auto) 3.78 (1.40-6.50) K/uL Lymph # (Auto) 1.15 L (1.20-3.40) K/uL [place] # (Auto) 0.63 H (0.11-0.59) K/uL Eos # (Auto) 0.11 (0.00-0.50) K/uL Baso # (Auto) 0.04 (0.00-0.20) K/uL Comprehensive Metabolic Panel 08/12/23 Range/Units 03:36 Sodium 140 (136-145) mmol/L Potassium 4.2 (3.5-5.1) mmol/L Chloride 108 H (98-107) mmol/L Carbon Dioxide 28 (21-32) mmol/L BUN 19 (6-23) mg/dl Creatinine 0.83 (0.6-1.4) mg/dl Glucose 122 H (70-99(Fasting)) mg/dl Calcium 9.0 (8.6-10.3) mg/dl Intake and Output 08/11/23 08/12/23 08/12/23 22:59 06:59 14:59 Intake Total 250 / 550 300 / 550 250 / 250 Output Total 300 / 1625 900 / 1625 250 / 250 Balance -50 / -1075 -600 / -1075 0 / 0 Intake: Oral 250 / 550 300 / 550 250 / 250 Output: Urine 300 / 1625 900 / 1625 250 / 250 Other: Weight 101.5 kg 101.5 kg Weight Measurement Method Built in [facility] Patient Weight 08/13/23 06:59 Weight 101.5 kg
--- NOTE | 2023-08-12 12:37 | Discharge Summary ---
Date of Service August 12, 2023 Admission HPI Per Admitting Provider History obtained from patient and records. Medical history significant for chronic respiratory failure secondary to COPD on home O2, CAD as per records, trivial MR, mild TR, loculated pericardial effusion from TTE April 2023, history of bifascicular heart block (RBBB, LAFB as per records), history ANNEL on CPAP, hypertension, hyperlipidemia, DM2 on oral medications, BPH, anxiety/mood disorder, past tobacco abuse. Few days history of feeling very rundown and tired. Lightheaded when getting up, near syncope. No headache, no chest pain, no usual SOB. Denies fluid retention. Nausea emesis symptoms at home without abdominal pain. 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 Admission Exam Per Admitting Provider GENERAL: Comfortable, obese, pleasant, short neck, no respiratory distress SKIN: Normal color, warm HEENT: [place] palpebral conjunctivae, no ptosis, dry buccal mucosa NECK : Supple, no tenderness CHEST : CTA, no tenderness HEART : RRR, no obvious murmurs ABDOMEN: Some distention, nontender EXTREMITIES : Minimal LE swelling, no LE tenderness, no other conspicuous deformities noted NEUROLOGIC : Coherent, no facial asymmetry, no other gross focality Principal Diagnosis Second-degree AV block status post dual-chamber permanent pacemaker on August 11, 2023 Hypokalemia Discharge Exam Constitutional: WD/WN, vitals as above, NAD, sitting up in bed, pleasant, conversing easily Respiratory: normal respiratory effort, lungs clear to auscultation, no wheeze, rales, rhonchi. Normal insp/exp effort, no accessory muscle use Cardiovascular: RRR, no murmur, no edema Vessels: no JVD or carotid bruit Chest: normal inspection of chest. Dressing in place on left upper chest; no soakage. Abdomen: normal bowel sounds, soft, nontender, no hepatosplenomegaly Musculoskeletal: no cyanosis or clubbing, extremities motor strength 5/5 Skin: no rashes, warm and dry normal turgor Neurologic: PERRL, EOMI, accommodation nl, no face palsy, no dysarthria CN's II- XI intact bilaterally and moves all extremities Psychiatric: A+Ox3, euthymic affect Discharge Data Allergies Allergy/AdvReac Type Severity Reaction Status Date / Time No Known Allergies Allergy Unverified 08/09/23 19:21 Consultations 08/09/23 19:47 ED Decision to Admit Stat 08/10/23 02:30 Consult Cardiology Routine Procedures Performed Operation Date: 08/11/23 09:00 Actual Procedures s Venogram, Unilateral - Cherri Keller DO p Pacer with A/V Leads (Dual) - Cherri Keller DO Ordered Studies 08/09/23 18:09 CT Abd and Pelvis [CT abd pelvis IV con only] Stat 08/11/23 06:45 EP Lab Images for PACS ONCE Hospital Course (1) Second degree AV block: (2) Hypokalemia: Plan Patient presented with generalized weakness and fatigue. Also reported lightheadedness and presyncope On telemetry, found to have second-degree AV block Mobitz type I as well as episode of 2 is to 1 AV block. Status post dual-chamber permanent pacemaker on August 11, 2023 Possible postprocedure pneumothorax versus artifact On chest x-ray Repeat chest x-ray did not show any finding concerning for pneumothorax Patient was saturating well in room air at the time of the discharge. Pacemaker interrogation was done on the day of the discharge; patient cleared for discharge by cardiology. He was provided a prescription for potassium supplement. Patient to follow-up with his primary care doctor, cardiology follow-up for wound/device check next week. Please note the above document was generated using voice recognition software. It may contain grammatical, syntax or spelling errors. Any formal questions or concerns about the content, text or information contained within the body of this dictation should be directly addressed to the provider for clarification Total Time Total Time Spent Total Time Spent (In Minutes): 45 Total Time Includes: Examination of the Patient, Discharge Planning, Medication Reconciliation, Communication With Other Providers and Other Discharge Plan Discharge Items Patient Disposition: Home - Self-Care Reason For Visit: BRADYCARDIA, HYPOK Discharge Diagnosis: Second-degree AV block status post dual-chamber pacemaker placement on August 11, 2023 Activity: As commented below Activity Comment: do not raise the left elbow over the left shoulder for 1 month Lifting: No more than 10 pounds Lifting Comment: do not lift more than 10 pounds with the left arm for 2 weeks Bathing: Keep incision dry Bathing Comment: keep dressing on & dry until wound check next week Non-emergency contact: Primary Care Provider Call non-emergency contact if: you have any medication questions and your symptoms worsen Follow-up/Referrals: Roberto Duncan MD [Primary Care Provider] - (Date & Time 08/19/2023 1:00 PM Provider Angela Saldivar PA-C Department [facility] ) Cherri Keller DO [Physician] - (The Cardiac Electrophysiology office will contact you for a pacemaker device and wound check.) Ashley Perez CRNP [Nurse Practitioner] - (Date & Time 08/17/2023 9:30 AM Provider Ashley Perez CRNP Department Cardiology, [facility] ) Diet: Regular Addtl Attending Provider Instructions: You were admitted to the hospital due to low potassium level and slow heart rate. You underwent pacemaker placement by cardiology. You are prescribed potassium tablets to be taken once daily as you are on a diuretic which can lower your potassium level. You will receive a call from [facility] cardiology for device and wound check for sometime next week. You were prescribed Augmentin for 5 days. Please continue to use incentive spirometry at home. Follow-up with your primary care doctor will be made for sometime next week. Pending Studies at Discharge: No Stand-Alone Forms: My [facility], Smoking Cessation Medications and DC Order Prescriptions: New potassium chloride 20 mEq tablet extended release 20 meq PO DAILY Qty: 30 0RF amoxicillin-pot clavulanate 875-125 mg tablet 1 tab PO BID 5 Days Qty: 10 0RF Continued multivitamin Tablet 1 tab PO QAM atorvastatin 80 mg tablet 80 mg PO QAM amlodipine 5 mg tablet 5 mg PO QAM tamsulosin 0.4 mg capsule 0.4 mg PO QAM ropinirole 2 mg tablet 2 mg PO QAM hydrochlorothiazide 12.5 mg capsule 12.5 mg PO QAM furosemide 20 mg tablet 20 mg PO QAM albuterol sulfate 90 mcg/actuation HFA aerosol inhaler 2 puff INHALATION Q6H PRN (Reason: Wheezing) lisinopril 40 mg tablet 40 mg PO QAM fluticasone propionate 50 mcg/actuation [place],Suspension 1 spray INTRANASAL DAILY PRN (Reason: Allergy Symptoms) Rx Instructions: administer into each nostril metformin 500 mg tablet extended release 24 hr 300 mg PO QAM Trelekori Ellipta 100-62.5-25 mcg blister with device 1 inh INHALATION QAM Discharge Orders: Discharge Order (Routine); Ordered 08/12/23 Ordered By: Arun Bernard/Other Patient Handouts: High Blood Sugar (Hyperglycemia), Hypoglycemia (Low Blood Sugar), Managing Type 2 Diabetes Admission Data Admit Date/Time: 08/10/23 19:17 Attending Provider: Arun Minor Admit Provider: David Cason Primary Care Provider: Roberto Duncan Other Providers: David Cason; Ashley Cruz; Eleazar Ghosh; Haseeb Nieto; Familia Schmidt; Mateus West; Matthew De Souza; Mabel Israel; Cherri Keller; Alla Michel; Ashley Perez; Amish Meyer; Say Soler; Kristine Mendiola; Meli Jeffrey; Kristine Mays; Angle Phelps; Ministerio Arciniega; Le Jovel Other Interventions: Discharge Summary Assessment (RN) Last Done: 08/12/23 11:52
== END 2023-08-12 13:39 | disposition home or self-care (01) | DRG 243 ==
LOC: ED 15:21 → 2N 15:21 → 1E 08-10 03:08 → SUATTDRO 08-10 19:17
DX: E87.6 Hypokalemia; B34.9 Viral infection, unspecified; I48.92 Unspecified atrial flutter; E78.5 Hyperlipidemia, unspecified; E66.9 Obesity, unspecified; E86.0 Dehydration; I10 Essential (primary) hypertension; G47.33 Obstructive sleep apnea (adult) (pediatric); E83.42 Hypomagnesemia; Z79.84 Long term (current) use of oral hypoglycemic drugs; J44.9 Chronic obstructive pulmonary disease, unspecified; E11.9 Type 2 diabetes mellitus without complications; I44.1 Atrioventricular block, second degree; Z87.891 Personal history of nicotine dependence; J93.83 Other pneumothorax; J96.10 Chronic respiratory failure, unspecified whether with hypoxia or hypercapnia; I45.10 Unspecified right bundle-branch block